=== PATIENT | male | born 1950 | race Caucasian/White ===

== ENCOUNTER 2019-06-18 14:53 | Emergency (ER) | payer BC ==
[2019-06-18] MEDS ORDERED: MECLIZINE HCL 12.5 MG TAB ONE (16:11)
[2019-06-18 16:26] LABS: Absolute Lymphocytes (CBC) 1.7 K/uL (0.7-4.9); Basophils % 0.5 % (0-1.3); Eosinophils % 2.2 % (0-4.4); Hematocrit 46.3 % (39.6-49.0); Lymphocytes % 25.9 % (15.3-44.8); MPV 8.9 fL (7.6-11.3); Monocytes % 8.5 % (3.3-12.3); RBC Red Blood Cell Count 5.31 M/uL (4.33-5.43)
[2019-06-18 16:38] LABS: ALT/SGPT 51 U/L (12-78); AST/SGOT 22 U/L (15-37); Albumin 3.4 g/dL (3.4-5.0); Alkaline Phosphatase 94 U/L (45-117); BUN Blood Urea Nitrogen 19 mg/dL (7-18); Bicarbonate 27 mmol/L (21-32); Bilirubin Direct 0.1 mg/dL (0-0.2); Bilirubin Total 0.4 mg/dL (0.2-1.0); Glucose Level 189 mg/dL (74-106); Magnesium 2.1 mg/dL (1.8-2.4); NT PRO-BNP 13 pg/mL (<125); Potassium 3.8 mmol/L (3.5-5.1); Protein, Total 7.5 g/dL (6.4-8.2); Sodium Level 140 mmol/L (136-145); Troponin (Emerg Dept Use Only) < 0.02 ng/mL (0.0-0.045)
--- NOTE | 2019-06-18 16:38 | RAD REPORT ---
EXAM DESCRIPTION: CT - Head Brain Wo Cont - 06/18/2019 4:05 pm CLINICAL HISTORY: Dizziness COMPARISON: None TECHNIQUE: Computed axial tomography of the head was obtained. IV contrast was not requested. All CT scans are performed using dose optimization technique as appropriate and may include automated exposure control or mA/KV adjustment according to patient size. FINDINGS: An intracranial bleed is not seen . The ventricles are normal in caliber. No extra-axial fluid collection is noted. Mild low-density areas within periventricular, deep and subcortical white matter likely represent isc hemic changes secondary to small vessel disease. Fluid within the sinuses/ mastoids is not seen. Mild chronic ethmoid sinusitis IMPRESSION: No acute intracranial abnormality is seen. If patient's symptoms persist MRI of the bra in would be recommended.
[2019-06-18 17:06] LABS: Protime INR 0.99
--- NOTE | 2019-06-18 17:35 | RAD REPORT ---
EXAM DESCRIPTION: Ernie Single View06/18/2019 4:12 pm CLINICAL HISTORY: Hypertension COMPARISON: 2012 FINDINGS: The lungs appear clear of acute infiltrate. The heart is mildly enlarged IMPRESSION: No acute abnormalities displayed
--- NOTE | 2019-06-18 18:28 | EKG ---
Test Date: 2019-06-18 Test Time: 15:41:08 Spinning Doffer: VERONICA MEASUREMENT RESULTS: Intervals: Rate: 73 [place]: 160 QRSD: 90 QT: 388 QTc: 427 [place]: P: 17 NJ: 160 QRS: 50 T: 45 INTERPRETIVE STATEMENTS: Normal sinus rhythm Normal ECG No previous ECG available for comparison Electronically Signed On 06-18-19 18:28:01 CDT by Omari Loving
--- NOTE | 2019-06-18 19:18 | RAD REPORT ---
EXAM DESCRIPTION: MRI - Brain Wo Cont - 06/18/2019 6:38 pm CLINICAL HISTORY: Or dizziness COMPARISON: June 18, 2019 CT TECHNIQUE: Axial, sagittal, and coronal magnetic images of the brain were obtained. Contrast was not requested FINDINGS: Mild to moderate signal within periventricular, deep and subcortical white matter. Diffusion-weighted/ADC mapping does not reveal evidence of acute infarction. The ventricles are normal caliber. An extra-axial fluid collection is not present Mild ethmoid and sphenoid sinusitis. IMPRESSION: Mild to moderate signal within periventricular, deep and subcortical white matter likely ischemic changes secondary to small vessel disease Mild sinusitis
--- NOTE | 2019-06-18 19:47 | ER ---
Nurse's Notes [facility] Name: Luiz Wyatt Age: 68 yrs Sex: Male : 1950 Arrival Date: 06/18/2019 Time: 14:55 Bed 27 Private MD: Phil Milligan E Diagnosis: Dizziness and giddiness;Acute sinusitis Presentation: 06/18 15:00 Presenting complaint: Intermittent dizziness x 2 days. Transition of care: patient was hb not received from another setting of care. Onset of symptoms was June 17, 2019. Risk Assessment: Do you want to hurt yourself or someone else? Patient reports no desire to harm self or others. Care prior to arrival: None. 15:00 Method Of Arrival: Ambulatory hb 15:00 Acuity: JUAN C 3 hb 15:26 Initial Sepsis Screen: Does the patient meet any 2 criteria? No. Patient's initial rv sepsis screen is negative. Does the patient have a suspected source of infection? No. Patient's initial sepsis screen is negative. Historical: - Allergies: 15:03 No Known Allergies; hb - Home Meds: 15:03 aspirin 81 mg Oral chew 1 tab once daily [Active]; Benicar oral oral [Active]; hb - PMHx: 15:03 Hypertension; hb - PSHx: 15:03 None; hb - Immunization history:: Adult Immunizations up to date. - Social history:: Smoking status: Patient/guardian denies using tobacco. - Ebola Screening: : No symptoms or risks identified at this time. Screenin:26 Abuse screen: Denies threats or abuse. Denies injuries from another. Nutritional rv screening: No deficits noted. Tuberculosis screening: No symptoms or risk factors identified. Fall Risk None identified. Assessment: 15:25 General: Appears in no apparent distress. comfortable, Behavior is calm, cooperative. rv Pain: Denies pain. Neuro: Level of Consciousness is awake, alert, obeys commands, Oriented to person, place, time, situation. Neuro:. Neuro: Reports light headedness. Cardiovascular: Patient's skin is warm and dry. Respiratory: Airway is patent. GI: No signs and/or symptoms were reported involving the gastrointestinal system. : No signs and/or symptoms were reported regarding the genitourinary system. EENT: No signs and/or symptoms were reported regarding the EENT system. Derm: No signs and/or symptoms reported regarding the dermatologic system. Musculoskeletal: No signs and/or symptoms reported regarding the musculoskeletal system. 17:34 Reassessment: Patient appears in no apparent distress at this time. Patient and/or rv family updated on plan of care and expected duration. Pain level reassessed. Patient is alert, oriented x 3, equal unlabored respirations, skin warm/dry/pink. ADY Mooney talked to the patient and explained to the patient and family the result of the diagnostics. plan to do MRI. 19:27 Reassessment: Patient appears in no apparent distress at this time. Patient and/or rv family updated on plan of care and expected duration. Pain level reassessed. Patient is alert, oriented x 3, equal unlabored respirations, skin warm/dry/pink. MRI was done and result already in. awaiting for ADY Mooney to explain it to the patient and family. Vital Signs: 15:02 BP 122 / 71; Pulse 81; Resp 16; Temp 97.4; Pulse Ox 100% on R/A; Weight 129.27 kg; hb Height 5 ft. 11 in. (180.34 cm); Pain 0/10; 15:27 BP 129 / 79; Pulse 75; Resp 16; Pulse Ox 95% on R/A; rv 16:00 BP 118 / 82; Pulse 69; Resp 16; Pulse Ox 95% on R/A; rv 16:30 BP 118 / 79; Pulse 73; Resp 17; Temp 98; Pulse Ox 99% on R/A; rv 17:00 BP 142 / 87; Pulse 74; Resp 16; Pulse Ox 95% on R/A; rv 17:30 BP 124 / 77; Pulse 73; Resp 16; Pulse Ox 95% on R/A; rv 18:00 BP 120 / 79; Pulse 71; Resp 15; Pulse Ox 96% on R/A; rv 18:30 BP 109 / 84; Pulse 74; Resp 13; Pulse Ox 98% on R/A; rv 19:00 BP 121 / 75; Pulse 70; Resp 14; Pulse Ox 99% on R/A; rv 20:13 BP 118 / 76; Pulse 71; Resp 16; Temp 98; Pulse Ox 100% on R/A; rv 15:02 Body Mass Index 39.75 (129.27 kg, 180.34 cm) hb ED Course: 14:55 Patient arrived in ED. ag5 14:56 Phil Milligan MD is Private Physician. ag5 15:02 Triage completed. hb 15:03 Arm band placed on. hb 15:07 Paul Colvin, RN is Primary Nurse. rv 15:26 Patient has correct armband on for positive identification. Placed in gown. Bed in low rv position. Call light in reach. Side rails up X 1. campus monitor on. Pulse ox on. NIBP on. 15:39 Vinicio Varela PA is PHCP. [facility] 15:39 Jean-Paul Morocho MD is Attending Physician. jmm 16:00 Inserted saline lock: 20 gauge in right antecubital area, using aseptic technique. rv Blood collected. 16:06 CT Head Brain wo Cont In Process Unspecified. EDMS 16:11 XRAY Chest (1 view) In Process Unspecified. EDMS 18:24 Patient moved to MRI via wheelchair. em2 18:31 MRI - Brain Wo Cont In Process Unspecified. EDMS 18:40 MRI completed. Patient tolerated well. Patient moved back from MRI. em2 19:45 Justin Khan MD is Referral Physician. [facility] 20:14 No provider procedures requiring assistance completed. IV discontinued, intact, rv bleeding controlled, No redness/swelling at site. Pressure dressing applied. Administered Medications: 16:06 Drug: Meclizine 25 mg Route: PO; rv 16:42 Follow up: Response: No adverse reaction rv Outcome: 19:46 Discharge ordered by MD. jmm 20:14 Discharged to home ambulatory. rv 20:14 Condition: good 20:14 Discharge instructions given to patient, Instructed on discharge instructions, follow up and referral plans. Demonstrated understanding of instructions, follow-up care. 20:14 Prescriptions given X 2. rv 20:15 Patient left the ED. rv Signatures: Dispatcher [employer] EDMS Vinicio Varela PA PA [place] em2 Christina Hunt, RN RN Paul Colvin, RN RN Johan Hernandez ag5
--- NOTE | 2019-06-18 19:48 | EDPHYS ---
Physician Documentation [facility] Name: Luiz Wyatt Age: 68 yrs Sex: Male : 1950 Arrival Date: 06/18/2019 Time: 14:55 Bed 27 Private MD: Phil Milligan E ED Physician Jean-Paul Morocho HPI: 06/18 15:50 This 68 yrs old Male presents to ER via Ambulatory with complaints of Light jmm Headed, Sweating. 15:50 The patient presents with dizziness, sense of spinning. Onset: The symptoms/episode jmm began/occurred acutely, 2 day(s) ago. Modifying factors: The symptoms are alleviated by holding head still, lying down, the symptoms are aggravated by movement of head, standing up, changing position. Associated signs and symptoms: Pertinent positives: diaphoresis, Pertinent negatives: chest pain. This is a 68 year old male with a history of htn that presents to the ED with complaints of intermittent dizziness worsened with movement. Patient states on initial onset developed diaphoresis yesterday. Patient denies chest pain or shortness of breath. Patient has not had similar episodes in the past. . Historical: - Allergies: 15:03 No Known Allergies; hb - Home Meds: 15:03 aspirin 81 mg Oral chew 1 tab once daily [Active]; Benicar oral oral [Active]; hb - PMHx: 15:03 Hypertension; hb - PSHx: 15:03 None; hb - Immunization history:: Adult Immunizations up to date. - Social history:: Smoking status: Patient/guardian denies using tobacco. - Ebola Screening: : No symptoms or risks identified at this time. ROS: 15:50 Constitutional: Negative for fever, chills, and weight loss, Cardiovascular: Negative jmm for chest pain, palpitations, and edema, Respiratory: Negative for shortness of breath, cough, wheezing, and pleuritic chest pain, MS/Extremity: Negative for injury and deformity. 15:50 Neuro: Positive for dizziness. 15:50 All other systems are negative. Exam: 15:50 Constitutional: This is a well developed, well nourished patient who is awake, alert, jmm and in no acute distress. Head/Face: atraumatic. Eyes: EOMI, no conjunctival erythema appreciated ENT: Moist Mucus Membranes Neck: Trachea midline, Supple Chest/axilla: Normal chest wall appearance and motion. Cardiovascular: Regular rate and rhythm. No edema appreciated Respiratory: Normal respirations, no respiratory distress appreciated Abdomen/GI: Non distended, soft Back: Normal ROM Skin: General appearance color normal MS/ Extremity: Moves all extremities, no obvious deformities appreciated, no edema noted to the lower extremities 15:50 Neuro: Orientation: is normal, Mentation: is normal, Memory: is normal, Cerebellar function: normal finger to nose testing, heel to akbar testing is normal, Gait: is steady. 15:50 Psych: Behavior/mood is pleasant, cooperative. Vital Signs: 15:02 BP 122 / 71; Pulse 81; Resp 16; Temp 97.4; Pulse Ox 100% on R/A; Weight 129.27 kg; hb Height 5 ft. 11 in. (180.34 cm); Pain 0/10; 15:27 BP 129 / 79; Pulse 75; Resp 16; Pulse Ox 95% on R/A; rv 16:00 BP 118 / 82; Pulse 69; Resp 16; Pulse Ox 95% on R/A; rv 16:30 BP 118 / 79; Pulse 73; Resp 17; Temp 98; Pulse Ox 99% on R/A; rv 17:00 BP 142 / 87; Pulse 74; Resp 16; Pulse Ox 95% on R/A; rv 17:30 BP 124 / 77; Pulse 73; Resp 16; Pulse Ox 95% on R/A; rv 18:00 BP 120 / 79; Pulse 71; Resp 15; Pulse Ox 96% on R/A; rv 18:30 BP 109 / 84; Pulse 74; Resp 13; Pulse Ox 98% on R/A; rv 19:00 BP 121 / 75; Pulse 70; Resp 14; Pulse Ox 99% on R/A; rv 20:13 BP 118 / 76; Pulse 71; Resp 16; Temp 98; Pulse Ox 100% on R/A; rv 15:02 Body Mass Index 39.75 (129.27 kg, 180.34 cm) hb MDM: 15:50 Patient medically screened. [facility] 19:44 Data reviewed: vital signs, nurses notes. Counseling: I had a detailed discussion with charan the patient and/or guardian regarding: the historical points, exam findings, and any diagnostic results supporting the discharge/admit diagnosis, radiology results, the need for outpatient follow up, to return to the emergency department if symptoms worsen or persist or if there are any questions or concerns that arise at home. ED course: I discussed the patient with Dr. Khan whom will follow up with patient in clinic.. 19:44 ED course: Cerebellar exam normal. Imaging studies negative for an acute process. [facility] Patient is advised to follow up with neuro for further evaluation. Patient states feeling better in the ED. . 06/18 15:22 Order name: Glucose, Ancillary Testing; Complete Time: 15:44 [facility] 06/18 15:51 Order name: Basic Metabolic Panel; Complete Time: 16:41 [facility] 06/18 15:51 Order name: CBC with Diff; Complete Time: 17:18 [facility] 06/18 15:51 Order name: LFT's; Complete Time: 16:41 [facility] 06/18 15:51 Order name: Magnesium; Complete Time: 16:41 [facility] 06/18 15:51 Order name: NT PRO-BNP; Complete Time: 16:42 [facility] 06/18 15:51 Order name: PT-INR; Complete Time: 17:18 [facility] 06/18 15:51 Order name: Troponin (emerg Dept Use Only); Complete Time: 16:42 [facility] 06/18 15:51 Order name: XRAY Chest (1 view); Complete Time: 18:09 [facility] 06/18 15:51 Order name: EKG; Complete Time: 15:53 [facility] 06/18 15:51 Order name: Cardiac monitoring; Complete Time: 16:06 [facility] 06/18 15:51 Order name: CT Head Brain wo Cont; Complete Time: 16:42 [facility] 06/18 16:42 Order name: MRI - Brain Wo Cont; Complete Time: 19:26 [facility] 06/18 15:51 Order name: EKG - Nurse/Tech; Complete Time: 16:06 [facility] 06/18 15:51 Order name: IV Saline Lock; Complete Time: 16:06 [facility] 06/18 15:51 Order name: Labs collected and sent; Complete Time: 16:06 [facility] 06/18 15:51 Order name: O2 Per Protocol; Complete Time: 16:06 [facility] 06/18 15:51 Order name: O2 Sat Monitoring; Complete Time: 16:07 [facility] 06/18 19:35 Order name: Misc. Order: ambulate; Complete Time: 19:40 [facility] Administered Medications: 16:06 Drug: Meclizine 25 mg Route: PO; rv 16:42 Follow up: Response: No adverse reaction rv Disposition: 06/18/19 19:46 Discharged to Home. Impression: Dizziness and giddiness, Acute sinusitis. - Condition is Stable. - Discharge Instructions: Dizziness, Sinusitis, Adult. - Prescriptions for Augmentin 875- 125 mg Oral Tablet - take 1 tablet by ORAL route every 12 hours for 10 days; 20 tablet. Meclizine 25 mg Oral Tablet - take 1 tablet by ORAL route every 8 hours As needed; 30 tablet. - Medication Reconciliation Form, Thank You Letter, Antibiotic Education, Prescription Opioid Use form. - Follow up: Justin Khan MD; When: Saturday06/22/2019; Reason: Recheck today's complaints, Continuance of care, Re-evaluation by your physician. Addendum: 06/20/2019 17:55 Co-signature as Attending Physician, Jean-Paul Morocho MD. g s Signatures: Dispatcher [employer] EDMS Vinicio Varela PA PA [facility] Christina Hunt, SANTO RN Jean-Paul Morocho MD MD Paul Colvin RN RN rv Corrections: (The following items were deleted from the chart) 06/18 19:46 19:46 06/18/2019 19:46 Discharged to Home. Impression: Dizziness and giddiness. [facility] Condition is Stable. Forms are Medication Reconciliation Form, Thank You Letter, Antibiotic Education, Prescription Opioid Use. Follow up: Justin Khan; When: Saturday06/22/2019; Reason: Recheck today's complaints, Continuance of care, Re-evaluation by your physician. [facility] 20:15 19:46 06/18/2019 19:46 Discharged to Home. Impression: Dizziness and giddiness; Acute rv sinusitis. Condition is Stable. Forms are Medication Reconciliation Form, Thank You Letter, Antibiotic Education, Prescription Opioid Use. Follow up: Justin Khan; When: Saturday06/22/2019; Reason: Recheck today's complaints, Continuance of care, Re-evaluation by your physician. [facility]
== END 2019-06-18 20:15 | disposition home or self-care (01) ==
LOC: ER 14:53
DX: J01.90 Acute sinusitis, unspecified (principal); R42 Dizziness and giddiness; Z79.82 Long term (current) use of aspirin; I10 Essential (primary) hypertension
CPT/HCPCS: 36415; 70450; 70551; 71045; 80048; 80076; 82962; 83735; 83880; 84484; 85025; 85610; 93005; 99285

== ENCOUNTER 2023-02-06 06:27 | Day surgery (SDC) | payer BC ==
[2023-02-05 14:03] LABS: Absolute Lymphocytes (CBC) 1.9 K/uL (0.7-4.9); Hematocrit 36.2 % (39.6-49.0); Lymphocytes % 17.3 % (15.3-44.8); MCV 86.7 fL (80-100); MPV 7.1 fL (7.6-11.3); RBC Red Blood Cell Count 4.18 M/uL (4.33-5.43)
[2023-02-06] MEDS ORDERED: CEFAZOLIN SODIUM 1 GM/VIAL ONE (06:55)
[2023-02-06] MEDS ORDERED: NA CHLORIDE 0.9% 1,000 ML ONE (06:55)
[2023-02-06] MEDS ORDERED: propofoL 200 MG/20 ML VIAL IV ONE (07:15)
[2023-02-06] MEDS ORDERED: LIDOCAINE 2% MPF 5 ML VIAL ONE (07:15)
[2023-02-06] MEDS ORDERED: FENTANYL CITR 100 MCG/2 ML ONE (07:15)
[2023-02-06] MEDS ORDERED: NS 0.9% VIAL 10 ML ONE (07:16)
[2023-02-06] MEDS ORDERED: NS 0.9% VIAL 40 ML ONE (07:20)
[2023-02-06] MEDS ORDERED: HEPARIN 5000 UNIT/ML 1 ML VIAL ONE (07:20)
[2023-02-06] MEDS ORDERED: LIDOCAINE 1% 20 ML MDV ONE (07:21)
[2023-02-06] MEDS ORDERED: ONDANSETRON 4 MG/2 ML VIAL ONE (07:43)
[2023-02-06] MEDS ORDERED: EPHEDRINE SULF 50 MG/ML VIAL ONE (08:26)
[2023-02-06] MEDS ORDERED: Mastisol Adhesive Liq ONE (08:27)
--- NOTE | 2023-02-06 08:48 | P.OP ---
Date of Service: 02/06/23 Preop diagnosis: Esophageal cancer Postop diagnosis: Same Procedure performed: Placement of right IJ Port-A-Cath, interpretation of in traoperative fluoroscopy Surgeon: Alex Capone MD News Producer: LUIS FELIPE Velásquez Estimated blood loss: Minimal Specimen: None Findings: Normal anatomy Anesthesia: General Complications: None Drains: None Fluids and blood products: Nonapplicable Disposition: Recovery room Operative note: Patient brought to the OR and placed in supine position. General anesthesia begun. Patient prepped and draped in the usual sterile fashion. Marcaine 0.5% infiltrated locally. 18-gauge needle used to access the right IJ vein. Guidewire passed and position confirmed with fluoroscopy. 3 cm counterincision made on the right anterior chest. Pocket created. Tunneling device used to tunnel the catheter between the 2 wounds. Seldinger technique used and the tip of the catheter placed into the SVC right atrial junction under fluoroscopy. Catheter cut to appropriate size and attached to the Port-A-Cath device Port-A-Cath device attached to the subcutaneous tissue with 3-0 Vicryl. 3-0 chromic used to reapproximate subcutaneous tissue and close skin. Port flushed with heparin and packed with heparin with good blood flow. Sterile dressing applied. Patient awakened and taken to recovery room in good general condition. Chest x-ray has been ordered. CC: Dr. Thomas's office
[2023-02-06 08:51] VITALS: O2SAT 100
[2023-02-06] MEDS ORDERED: CODEINE 30MG/APAP 300MG TAB PO PRN (08:51)
--- NOTE | 2023-02-06 08:57 | RAD REPORT ---
EXAM DESCRIPTION: RAD - Fluoroscopy <1 Hour - 02/06/2023 8:34 am CLINICAL HISTORY: Venous catheter insertion. PORT A CATH COMPARISON: No comparisons FINDINGS: Fluoroscopic imaging is submitted from placement of a venous catheter. Details of the pro cedure not available. Fluoroscopy time: 0.7 minutes
--- NOTE | 2023-02-06 09:27 | RAD REPORT ---
EXAM DESCRIPTION: RAD - Chest Single View - 02/06/2023 9:08 am CLINICAL HISTORY: post-port cath insertion Chest pain. COMPARISON: Chest Single View dated 06/18/2019; CHEST PA AND LAT 2 VIEW dated 10/02/2013; CHEST PA AND LAT 2 VIEW dated 06/12/2006 FINDINGS: Right-sided port catheter has tip in the SVC. No pneumothorax.
[2023-02-06 10:51] VITALS: BP 100/62; TEMP 96.4
== END 2023-02-06 10:09 | disposition home or self-care (01) ==
LOC: OR 06:27
PROVIDERS: ATTEND Surgery
PROC: 0JH60WZ Insertion of Totally Implantable Vascular Access Device into Chest Subcutaneous Tissue and Fascia, Open Approach (ICD-10-PCS; principal; 2023-02-06 07:30)
DX: C15.9 Malignant neoplasm of esophagus, unspecified (principal)
CPT/HCPCS: 36415; 71045; 76000; 82947; 85025; A4216; C1788; J0690; J1644; J2001; J2405; J2704; J3010; J7030

== ENCOUNTER 2023-08-16 07:08 | Day surgery (SDC) | payer BC, OTHER ==
[2023-08-16] MEDS ORDERED: NA CHLORIDE 0.9% 250 ML ONE ×2 (07:51→10:32)
[2023-08-16 08:17] VITALS: BMI 24.1
[2023-08-16 08:28] VITALS: O2SAT 100
[2023-08-16 13:41] VITALS: BP 113/69; TEMP 97.6
[2023-08-16 15:53] LABS: Hematocrit 26.9 % (39.6-49.0)
== END 2023-08-16 15:47 | disposition home or self-care (01) ==
LOC: DS 07:08
PROVIDERS: ATTEND Internal Medicine Hematology & Oncology
DX: D62 Acute posthemorrhagic anemia (principal); C15.5 Malignant neoplasm of lower third of esophagus; R63.4 Abnormal weight loss; D61.810 Antineoplastic chemotherapy induced pancytopenia
CPT/HCPCS: 36415; 86900; 86850; 86901; 86920 ×2; 85018; 85014; 36430 ×2; P9016 ×2; J7050 ×2

== ENCOUNTER 2023-08-22 07:30 | Day surgery (SDC) | payer BC, OTHER ==
[2023-08-22] MEDS ORDERED: NA CHLORIDE 0.9% 250 ML ONE ×2 (08:07→10:45)
[2023-08-22 09:25] VITALS: BMI 24.1
[2023-08-22 12:42] VITALS: TEMP 97.3; O2SAT 100
[2023-08-22 14:45] LABS: Hematocrit 25.4 % (39.6-49.0)
[2023-08-22 14:56] VITALS: BP 114/53
== END 2023-08-22 14:50 | disposition home or self-care (01) ==
LOC: DS 07:30
PROVIDERS: ATTEND Internal Medicine Hematology & Oncology
DX: D61.810 Antineoplastic chemotherapy induced pancytopenia (principal); C15.5 Malignant neoplasm of lower third of esophagus; G89.3 Neoplasm related pain (acute) (chronic); R63.4 Abnormal weight loss; R13.19 Other dysphagia
CPT/HCPCS: 36415; 36430; 85014; 85018; 86850; 86900; 86901; 86920; J7050; P9016

== ENCOUNTER 2023-09-24 07:25 | Day surgery (SDC) | payer BC ==
[2023-09-24] MEDS ORDERED: NA CHLORIDE 0.9% 250 ML ONE ×2 (08:12→09:37)
== END 2023-09-24 14:40 | disposition home or self-care (01) ==
LOC: DS 07:25
PROVIDERS: ATTEND Internal Medicine Hematology & Oncology
PROC: 30233N1 Transfusion of Nonautologous Red Blood Cells into Peripheral Vein, Percutaneous Approach (ICD-10-PCS; principal; 2023-09-24)
DX: D50.0 Iron deficiency anemia secondary to blood loss (chronic) (principal); C15.5 Malignant neoplasm of lower third of esophagus; D61.810 Antineoplastic chemotherapy induced pancytopenia; R13.19 Other dysphagia; R63.4 Abnormal weight loss
CPT/HCPCS: 36415; 86900; 86850; 86901; 86920 ×2; 85018; 85014; 36430; P9016 ×2; J7050 ×2

== ENCOUNTER 2023-10-11 07:43 | Inpatient (IN) | payer BC, OTHER ==
[~2023-10-11 07:43] MED LIST: D5 0.45 NS 1,000 ML IV ONE; NOREPINEPHRINE BITARTRATE/D5W 4 MG/250 ML BAG IV ONE
--- OUTSIDE RECORDS SUMMARY | 2023-10-11 07:47 | XMS REPORT | Clinical Summary ---
:1950 Author Organization [facility] MD [facility] Address [address] [place] [address] Care Team Providers Name Role Phone Porshce Holm MD Primary Care Provider Pam Mccormack RD Unavailable Allergies No known active allergies Medications Medication Sig Dispensed Refills Start Date End Date Status acetaminophen-codeine TAKE 1 TABLET 0 02/06/2023 Active (TYLENOL #3) 300 mg-30 BY MOUTH mg tablet EVERY 4 HOURS NEEDED FOR PAIN atorvastatin (LIPITOR) Take 1 tablet 0 01/30/2023 Active 40 mg tablet (40 mg) by mouth daily. metFORMIN (GLUCOPHAGE) Take 1 tablet 0 01/28/2023 Active 1000 mg tablet (1,000 mg) by mouth daily with breakfast. olmesartan-hydrochloro Take 1 tablet 0 01/28/2023 Active thiazide (BENICAR HCT) by mouth 20-12.5 mg per tablet daily. omeprazole (PriLOSEC) TAKE 1 0 01/23/2023 Active 40 MG capsule CAPSULE BY MOUTH IN THE MORNING ondansetron DISSOLVE 1 0 01/11/2023 Active (ZOFRAN-ODT) 4 mg TABLET IN disintegrating tablet MOUTH EVERY 8 HOURS NEEDED acetaminophen Take 1 tablet 0 Ac tive (TYLENOL) 500 mg (500 mg) by tablet mouth every 6 (six) hours as needed for mild pain. senna (SENOKOT) 8.6 mg Take 1 tablet 0 Active tablet by mouth daily as needed. scopolamine Place 1 patch 10 patch 0 02/25/2023 Act renuka (Transderm-Scop) 1.5 on the skin mg transdermal every 72 patchIndications: hours. 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 prochlorperazine Take 1 tablet 60 tablet 2 02/28/2023 02/28/20 2 Discontinued (COMPAZINE) 10 mg (10 mg) by 3 tabletIndications: mouth every 6 Malignant neoplasm of (six) hours cardio-esophageal as needed for junction of stomach nausea or vomiting (Second choice). Active Problems Patient Care Coordination Note Formatting of this note might be differe nt from the original. 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 02/14/2023 Cancer Staging: Clinical: Stage IVB (cM1 ) - Signed by Nadia Bowden PA on 02/14/2023 Overview: Added automatically from request for lamberto hosea [id number] Secondary malignant neoplasm of liver 02/14/2023 Encounters Date Type Department Care Team Description 03/27/2023 Documentation Gastrointestinal [place], ADY Burger [address] [facility] Main Bldg, 7th [place] [address] 03/04/2023 Nutrition Clinical Nutrition Porsche Holm 10:00 AM For your Yocasta Dillard MD CDT appointment location [place], directions please Pam Smart RD call: 03/01/2023 Documentation Gastrointestinal [place]enn[place], ADY Burger [address] [facility] Main Bldg, 7th Floor Elevator A [place], [place] [id number] 03/01/2023 Orders Only Gastrointestinal [place], Malignant n eoplasm of ADY Burger cardio-esophageal [address] [facility] junction of stomach Main Bldg, 7th Floor (Primary Dx) [place] [address] 02/27/2023 Lab Requisition [facility] Deangelo Banda MD Disposition: Home FangIsrael MD 02/27/2023 Orders Only Gastrointestinal [place], Center ADY Zuniga [address] Main Bldg, 7th [place] [address] 02/26/2023 Orders Only Gastrointestinal Porsche Holm Malignant neoplasm of Laquita Dillard MD cardio-esophageal [address] junction of stomach Main Bldg, 7th Floor (Primary Dx) [place] [address] 02/25/2023 Ancillary Procedure Image Library Porsche Holm Cancer 10:55 PM [place] [address] 02/25/2023 Ancillary Procedure Image Library Porsche Holm Cancer 10:50 [place] [address] 02/25/2023 Ancillary Procedure Image Library Porsche Holm Cancer 10:45 [place] [address] 02/25/2023 Follow-Up Gastrointestinal Porsche Holm 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 (Primary Dx); 1:00 PM Laquita Dillard MD Secondary malignant neoplasm of liver; CDT [address] Dysphagia, not otherwise spe cified; Main Bldg, 7th [place] [address] 02/25/2023 Infusion Ambulatory Treatment [place], Dehydra tion (Primary Dx); 10:45 AM [facility] ADY Zuniga 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 CDT [address] [facility], 8th Nahun or M, RN Elevator T [place] [address] 02/25/2023 Orders Only Gastrointestinal [place], Malignant n eoplasm of Center Nadia, PA cardio-esophageal [address] junction of stomach Main Bldg, 7th Floor (Primary Dx) [place] [address] 02/25/2023 Travel 02/24/2023 Hospital Encounter Ambulatory Treatment Gerry Bowdenration (Primary Dx); 7:00 AM [facility] ADY Alexander 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 CDT - [address] Sarah, Discharge Disposition: Home 02/24/2023 Main Bldg, 2nd Floor Deisy R, 11:59 PM [place] [address] 02/24/2023 Travel 02/23/2023 Hospital Encounter Ambulatory Treatment Porsche Holm Dehydration (Primary Dx); 2:26 PM [facility] Kike Dillard MD 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 CDT - [address] Stiven Quintero A, Discharge Disposition: Home 02/23/2023 Main Bldg, 10th Floo florencia RN 11:59 PM [place] [address] 02/23/2023 Travel 02/22/2023 Hospital Encounter Ambulatory Treatment Porsche Holm Dehydration (Primary Dx); 2:51 PM [facility] Kike Dillard MD 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 CDT - [address] [place], Discharge Disposition: Home 02/22/2023 Main Bldg, 2nd Floor Rita Solorzano RN 11:59 PM [place] [address] 02/22/2023 Travel 02/21/2023 Infusion Ambulatory Treatment Porsche Holm Dehydr ation (Primary Dx); 5:00 PM [place] [facility] Dillard MD 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 CDT [address] Stephanie Bearden [facility], 8th Nahun michele Garrett, [place] [address] 02/21/2023 Follow-Up Gastrointestinal Porsche Holm 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 (Primary Dx); Critical access hospital Dehydration [address] Main Bldg, 7th [place] [address] 02/21/2023 Travel 02/20/2023 Nutrition Clinical Nutrition [place], Malignant neoplasm of 9:30 AM For your Nutrition ADY Zuniga cardio-esophageal CDT appointment location Ebvandana, leenactio n of stomach directions please Pam Smart RD call: 02/20/2023 Orders Only Gastrointestinal [place], Malignant n eoplasm of Center ADY Zuniga cardio-esophageal [address] junction of stomach Main Bldg, 7th Floor (Primary Dx) [place] [address] 02/20/2023 Telephone [facility] - [place], Medical Oncology Jessica Reynolds RN [address] Main Bldg, 7th [place] [address] 02/18/2023 Anesthesia Event Endoscopy Center Radha, 11:56 AM [address] Haro MD CDT Main Bldg, 5th [place] [address] 02/18/2023 Surgery Endoscopy Center Pravinme, DIAGNOSTIC UPPER 10:15 AM [address] Bl[address]uman MD GASTROINTESTINAL CDT - Main Bldg, 5th Floor ENDOSCOPY 02/18/2023 Elevator C 10:55 AM [place], [place] [address] [phone] 02/18/2023 Hospital Encounter Endoscopy Center [place], Malignant neoplasm of cardio -esophageal junction of stomach 8:45 AM Yohana Lanier MD Discharge Disposition: Home CDT - Main Bldg, 5th Floor 02/18/2023 Elevator C 1:[address] [phone] 02/18/2023 Travel 02/15/2023 POEM Appointments Perioperative Porsche Holm 12:00 PM Evaluation and MD Nishant CDT Management Center [address] [place] [address], 6th [place] [address] 02/14/2023 Anesthesia Event Perioperative Sonia Da Silva 11:59 PM Evaluation and Aparna RN CDT Management Center [address] [place] [address], 6th [place] [address] 02/14/2023 Ancillary Procedure Image Library Porsche Holm Cancer 8:25 [place] [address] 02/14/2023 Ancillary Procedure Image Library Porsche Holm Cancer 8:20 [place] [address] 02/14/2023 Ancillary Procedure Image Library Porsche Holm Cancer 8:15 [place] [address] 02/14/2023 Ancillary Procedure Image Library Porsche Holm Cancer 8:10 [place] [address] 02/14/2023 Ancillary Procedure Image Library Porsche Holm Cancer 8:05 [place] [address] 02/14/2023 Ancillary Procedure Image Library Porsche Holm Cancer 8:00 PM Yohana Dillard MD [place] [address] 02/14/2023 Hospital Encounter Diagnostic Laboratory [place], 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 11:27 AM ADY Burger Discharge Disposition: Home CDT - [address] 02/14/2023 Main Bldg, Elevator A 11:59 PM [place], [place] [address] 02/14/2023 Office Visit Gastrointestinal Porsche Holm 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 (Primary Dx); 9:40 AM Laquita Dillard MD Secondary malignant neoplasm of liver; CDT [address] Type 2 diabetes mellitus wit hout complication; Main Bldg, 7th Floor Dysphagia, [place] [address] 02/14/2023 Documentation Gastrointestinal Harley Kirkland [facility] [address] Main Bldg, 7th [place] [address] 02/14/2023 Prep for Surgery Endoscopy Center [place], Malignant neoplasm of [address] Shea, RUBBER INSULATOR cardio-esophageal Main Bldg, 5th Floor junction of stomach Elevator C (Primary Dx) [place] [address] 02/14/2023 Travel 02/12/2023 Lab Requisition [facility] Deangelo Banda MD Disposition: Home Israel Headley MD 02/11/2023 NPR [facility] PATIENT ACCESS 9:00 AM T 02/11/2023 Travel 02/06/2023 Orders Only Gastrointestinal [place], Malignant n eoplasm of Center ADY Zuniga cardio-esophageal [address] junction of stomach Main Bldg, 7th Floor (Primary Dx) [place] [address] 02/05/2023 Travel 02/04/2023 Travel after 10/11/2022 Surgical History Surgery Date Site/Laterality Comments DC ESOPHAGOGASTRODUODENOSCOPY 02/18/2023 Esophagus/N/A Pr ocedure: DIAGNOSTIC TRANSORAL DIAGNOSTIC UPPER GASTR OINTESTINAL ENDOSCOPY; Surge on: Yolande Acevedo i, MD; Location: MAIN ENDOSCOPY; Servi ce: GASTROENTEROLOGY Medical History Medical History Date Comments Swallowing problem 10.26.2022 Diabetes mellitus Cancer Family History Medical History Relation Name Comments Prostate cancer Father Lee wyatt Colon cancer Paternal Grandmother Relation Name Status Comments Father Lee wyatt Paternal Grandmother Social History Tobacco Use Types Packs/Day Years Used Date Smoking Tobacco: Former Pipe 01/31 - 02/14/2023 Smokeless Tobacco: Never Tobacco Cessation: Counseling Given: Not Answered Alcohol Use Standard Drinks/Week Comments Not Currently 0 (1 standard drink = 0.6 oz pure alcoho l) Sex and Gender Information Value Date Recorded Sex Assigned at Not on file Gender Identity Not on file Sexual Orientation Not on file Job Start Date Occupation Industry Not on file Not on file Not on file Obstetrics History Last Filed Vital Signs Vital Sign Reading Time Taken Comments Blood Pressure 129/84 02/25/2023 2:02 PM CDT Pulse 77 02/25/2023 2:02 PM CDT Temperature 36.6 C (97.9 F) 02/25/2023 2:02 PM CDT Respiratory Rate 16 02/25/2023 2:02 PM CDT Oxygen Saturation 100% 02/25/2023 2:02 PM CDT Inhaled Oxygen Concentration - - Weight 99 kg (218 lb 4.8 oz) 02/25/2023 1:59 PM CDT Height 175.6 cm (5' 9.13") 02/14/2023 9:19 AM CDT Body Mass Index 32.11 02/14/2023 9:19 AM CDT Plan of Treatment Health Maintenance Due Date Last Done Comments COVID-19 Vaccination ( season) 08/02/20232020, 01/23/2021 Procedures Procedure Name Priority Date/Time Associated Comments Diagnosis AP IHC MSI (MLH1, MSH2, Routine 03/01/2023 2:13 Malignant neop lasm MSH6, PMS2) MATERIAL PM CDT of REQUEST cardio-esophageal junction of stomach AP IHC PD-L1 MATERIAL Routine 03/01/2023 2:13 Malignant neopla sm REQUEST PM CDT of cardio-esophageal junction of stomach AP IHC HER2/NEGRITA MATERIAL Routine 02/21/2023 9:39 Malignant radha plasm REQUEST PM CDT of cardio-esophageal junction of stomach VERIFY CATHETER TIP Routine 02/21/2023 12:40 Encounter for Res ults for this PLACEMENT PM CDT fitting and procedure are i n adjustment of the results vascular catheter section. XR CHEST 2 VW Routine 02/21/2023 11:35 Malignant neoplasm Resu lts for this AM CDT of procedure are i n cardio-esophageal the result s junction of section. stomach PATHOLOGY BIOPSY Routine 02/18/2023 12:04 Malignant neoplasm R esults for this INTERPRETATION PM CDT of procedure are in cardio-esophageal the result s junction of section. stomach POC GLUCOSE SCREEN Routine 02/18/2023 11:47 Resul ts for this AM CDT procedure are i n the results section. DIAGNOSTIC UPPER 02/18/2023 11:46 Malignant neoplasm GASTROINTESTINAL AM CDT of ENDOSCOPY cardio-esophageal junction of stomach NGS BLOOD CONTROL Routine 02/14/2023 11:36 Res ults for this AM CDT procedure are i n the results section. HP LB LIQUID BIOPSY Routine 02/14/2023 11:36 PANEL V1 INTERPRETATION AM CDT AND REPORT FRACTIONATED BILIRUBIN Routine 02/14/2023 11:36 Malignant neop lasm Results for this AM CDT of procedure are i n cardio-esophageal the result s junction of section. stomach TOTAL PROTEIN Routine 02/14/2023 11:36 Malignant neoplasm Resu lts for this AM CDT of procedure are i n cardio-esophageal the result s junction of section. stomach ASPARTATE Routine 02/14/2023 11:36 Malignant neoplasm Resul ts for this AMINOTRANSFERASE AM CDT of procedure a re in cardio-esophageal the result s junction of section. stomach ALANINE AMINOTRANSFERASE Routine 02/14/2023 11:36 Malignant ne oplasm Results for this AM CDT of procedure are i n cardio-esophageal the result s junction of section. stomach ALKALINE PHOSPHATASE Routine 02/14/2023 11:36 Malignant neopla sm Results for this AM CDT of procedure are i n cardio-esophageal the result s junction of section. stomach ALBUMIN LEVEL Routine 02/14/2023 11:36 Malignant neoplasm Resu lts for this AM CDT of procedure are i n cardio-esophageal the result s junction of section. stomach CALCIUM LEVEL Routine 02/14/2023 11:36 Malignant neoplasm Resu lts for this AM CDT of procedure are i n cardio-esophageal the result s junction of section. stomach .GLOMERULAR FILTRATION Routine 02/14/2023 11:36 Malignant neop lasm Results for this RATE AM CDT of procedure are i n cardio-esophageal the result s junction of section. stomach SERUM CREATININE Routine 02/14/2023 11:36 Malignant neoplasm R esults for this AM CDT of procedure are i n cardio-esophageal the result s junction of section. stomach ELECTROLYTE PANEL Routine 02/14/2023 11:36 Malignant neoplasm Results for this AM CDT of procedure are i n cardio-esophageal the result s junction of section. stomach BLOOD UREA NITROGEN Routine 02/14/2023 11:36 Malignant neoplas m Results for this AM CDT of procedure are i n cardio-esophageal the result s junction of section. stomach GLUCOSE LEVEL Routine 02/14/2023 11:36 Malignant neoplasm Resu lts for this AM CDT of procedure are i n cardio-esophageal the result s junction of section. stomach DIFFERENTIAL Routine 02/14/2023 11:36 Malignant neoplasm Resul ts for this AM CDT of procedure are i n cardio-esophageal the result s junction of section. stomach .CBC Routine 02/14/2023 11:36 Malignant neoplasm Resul ts for this AM CDT of procedure are i n cardio-esophageal the result s junction of section. stomach CARCINOEMBRYONIC ANTIGEN Routine 02/14/2023 11:36 Malignant ne oplasm Results for this AM CDT of procedure are i n cardio-esophageal the result s junction of section. stomach PHOSPHORUS LEVEL Routine 02/14/2023 11:36 Malignant neoplasm R esults for this AM CDT of procedure are i n cardio-esophageal the result s junction of section. stomach MAGNESIUM LEVEL Routine 02/14/2023 11:36 Malignant neoplasm Re sults for this AM CDT of procedure are i n cardio-esophageal the result s junction of section. stomach LACTATE DEHYDROGENASE Routine 02/14/2023 11:36 Malignant neopl asm Results for this AM CDT of procedure are i n cardio-esophageal the result s junction of section. stomach COMPREHENSIVE METABOLIC Routine 02/14/2023 11:36 Malignant radha plasm PANEL AM CDT of cardio-esophageal junction of stomach COMPLETE BLOOD COUNT W/ Routine 02/14/2023 11:36 Malignant radha plasm DIFFERENTIAL AM CDT of cardio-esophageal junction of stomach HP LB NRAS MUTATION Routine 02/14/2023 11:36 Malignant neoplas m Results for this ANALYSIS COLLECTION, AM CDT of procedu re are in BLOOD cardio-esophageal the result s junction of section. stomach HP LB BRAF MUTATION Routine 02/14/2023 11:36 Malignant neoplas m Results for this ANALYSIS COLLECTION, AM CDT of procedu re are in BLOOD cardio-esophageal the result s junction of section. stomach HP LB APC MUTATION Routine 02/14/2023 11:36 Malignant neoplasm Results for this ANALYSIS COLLECTION, AM CDT of procedu re are in BLOOD cardio-esophageal the result s junction of section. stomach OSI CHEST Routine 02/06/2023 2:19 Cancer Results for this PM [employer]LEPH[employer]PERATORS SUPERVISOR procedure are i n the results section. OSI INTERVENTIONAL Routine 02/06/2023 2:18 Cancer Result s for this PM [employer]LE[employer] OPERATORS SUPERVISOR procedure are i n the results section. OSI CT CHEST Routine 01/31/2023 2:18 Cancer Results for this PM [employer]LEPH[employer] OPERATORS SUPERVISOR procedure are i n the results section. OSI MRI ABDOMEN Routine 01/23/2023 2:24 Cancer Results f or this PM [employer]LE[employer]PERATORS SUPERVISOR procedure are i n the results section. OSI MRI ABDOMEN Routine 01/23/2023 2:19 Cancer Results f or this PM TELEPH[employer] OPERATORS SUPERVISOR procedure are i n the results section. OSI CT CHEST Routine 12/27/2022 2:18 Cancer Results for this PM [employer]LEPH[employer]PERATORS SUPERVISOR procedure are i n the results section. PATHOLOGY OUTSIDE Routine 12/27/2022 Results fo r this INTERPRETATION procedure are in the results section. PATHOLOGY OUTSIDE Routine 12/27/2022 Results fo r this INTERPRETATION procedure are in the results section. after 10/11/2022 Results IHC PD-L1 Material Request (03/01/2023 2:13 PM CDT) Specimen Anatomical Collection Method Collection Time Receive d Time (Source) Location / / Volume Laterality Tissue specimen 03/01/2023 2:13 PM 2022 2:13 (specimen) CDT PM CDT Nadia GARSIA MDA IP AP BIOMARKERS Performing Organization Address City/State/ZIP Code Phon e Number [facility] [place] [address], [place] [address] [place] IHC MSI (MLH1, MSH2, MSH6, PMS2) Material Request (03/01/2023 2:13 PM CDT) Specimen Anatomical Collection Method Collection Time Receive d Time (Source) Location / / Volume Laterality Tissue specimen 03/01/2023 2:13 PM 2022 2:13 (specimen) CDT PM CDT Nadia GARSIA [facility] IP AP BIOMARKERS Performing Organization Address City/State/ZIP Code Phon e Number [facility] [place] [place] [address], [place] [address] [place] IHC HER2/negrita Material Request (02/21/2023 9:39 PM CDT) Specimen Anatomical Collection Method Collection Time Receive d Time (Source) Location / / Volume Laterality Tissue specimen 02/21/2023 9:39 PM 2022 9:39 (specimen) CDT PM CDT Nadia GARSIA [facility] IP AP BIOMARKERS Performing Organization Address City/State/ZIP Code Ph[place] [address], [place] [address] [place] Tip Verification Central Vascular Access Device (02/21/2023 12:40 PM CDT) Nadia Falcon PA - 02/21/2023 12:40 PM CDT ADY Jarrett 02/22/2023 12:01 PM Central Vascular Access Device Tip Verif ication Performed by: ADY Jarrett Authorized by: ADY Jarrett [employer] Device placement location: Outside fac ility Catheter Type: Implanted venous port wit hout CT rating visible Vein location: Internal jugular vein Laterality: Right Tip in good position and cleared for inf usion Nadia GARSIA IV THERAPY ORDERABLES X-ray Chest 2 Views (02/21/2023 11:35 AM CDT) Anatomical Region Laterality Modality Chest Digital Radiography Specimen (Source) Anatomical Collection Method Collection Time Re ceived Time Location / / Volume Laterality 02/21/2023 11:37 AM CDT Impressions 02/21/2023 11:45 AM CDT No evidence of acute cardiopulmonary disease. Narrative 02/21/2023 11:45 AM CDT FULL RESULT: Examination: Chest, 2 views, 02/21/2023 1 1:35 AM. 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 Indication: Check Central Line placement , COVID-19 Not Suspected. Comparison: None. Technique: Posteroanterior, lateral, and dual-energy radiographs of the chest. Findings: A right internal jugular catheter has it s tip overlying the superior vena cava. The cardiomediastinal silhouette is unre markable. No pulmonary nodule, mass or consolidati on is seen. There are no pleural effusions. No pneum othorax. Procedure Note Telma Gusman C.B., MD - 02/21/2023Format ting of this note might be different from the original. FULL RESULT: Examination: Chest, 2 views, 02/21/2023 1 1:35 AM. 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 Indication: Check Central Line placement , COVID-19 Not Suspected. Comparison: None. Technique: Posteroanterior, lateral, and dual-energy radiographs of the chest. Findings: A right internal jugular catheter has it s tip overlying the superior vena cava. The cardiomediastinal silhouette is unre markable. No pulmonary nodule, mass or consolidati on is seen. There are no pleural effusions. No pneum othorax. IMPRESSION: No evidence of acute cardiopulmonary dis ease. Nadia LEON DIAGNOSTIC IMAGING ORDER PAVEL Pathology Biopsy Interpretation (02/18/2023 12:04 PM CDT) Component Value Ref Test Analysis Performed Pathologis t Range Method Time At Signature Addendum 3 PD-L1 IMMUNOHISTOCHEMISTRY 03/26/2023 M DA AP Addendum (clone 22C3, [employer], manual analysis) 6:23 PM LABS electronically Performed on a formalin-fixe d paraffin embedded section of adenocarcinoma from esophageal biopsy (Block: A1) CDT signed by Jessika, Combined Positive Score (CPS) = 30 (positive) Kaleigh Almazan MD on 03/26 Assay Information: This assa y is manufactured by [employer] and uses a monoclonal anti-PD-L1, clone [id number]. It is performed on formalin-fixed paraffin- embedded tissue using an [employer] Dako autostainer a at 6:23 PM nd polymer based detection k it, as specified by the abattoir manager. It is approved for use as a injection molding machine offbearer diagnostic for specific therapies on certain tumor types.Combined positive score (CPS) is calculat ed as the number of PD-L1 st aining cells (viable invasive tumor cells showing membranous staining of any intensity; lymphocytes and macrophages in the tumor area showing membranous or cytoplasmic staini ng of any intensity) divided by the total number of viable invasive tumor cells, multiplied by 100. The maximum score is defined as CPS 100. Addendum 2 03/26/2023 MDA AP Addendum 6:23 PM LABS electronic ally Intact expression of DNA mis match repair proteins in tumor by immunohistochemistry. CDT signed by Immunoperoxidase stains for the DNA mismatch repair enzymes MLH1, MSH2, MSH6 and PMS2 show intact nuclear expression. Therefore, the likelihood of defective DNA mismatch repair/high levels of microsatellite instability (MSI-H) in the tumor is low. Chin, Rebecc a Immunohistochemistry is appr oximately 90-95% sensitive for detection of MSI-H. Most of the MSI-H carcinomas missed by immunohistochemistry occur in patients with [place] syndrome/hereditary non-polyposis colorectal cancer (HNPCC) syndrome. E, DO on 03/08/2023 a t 10:33 AM Addendum 1 HER-2/negrita (4B5, [place] [facility]) IMMUNOHISTOCHEMISTRY 03/26/2023 [facility] Addendum Performed on a formalin-fixe d paraffin embedded section of carcinoma from esophageal biopsy (Block: A1) 6:23 PM LABS electronically CDT signed by No membranous reactivity in any tumor cell Jessika, (0, negative) Luann Almazan MD on 02/26 at 6:26 PM FOOTNOTE: Reference Edgar YJ, Benjie lew E, Everette A, et al. 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 Lancet. 2010;376:687-697. 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 (SEE COMMENT) 6:23 PM LABS signed by JAMARCUS Richter MD on 02/21/2023 at 5:50 PM Comment Immunohistochemical studies performed at [facility] show the neoplastic cells are positive for synaptophysin (diffuse), chromogranin (scattered cells), and p40 (CK5/6 & p40 dual stain; rare cells); and 03/03 [facility] AP are negative for CK5/6 (CK5 /6 & p40 dual stain). A mucicarmine stain highlights multifocal intracellular and intraluminal mucin. There is intact nuclear expression for SMARCA4 (BRG1) and loss of nu 6 :23 PM LABS clear expression for INI1/SM ARCB1 (BAF47) in the neoplastic cells. The immunohistochemical findings support the above diagnosis. CDT In this biopsy, the glandula r component represents less than 30% of the neoplastic cells. 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 Gross A: 03/26/2023 [facility] Description Esophagus, esophageal tumor : Multiple soft, nixon tissue fragments, 0.9 x 0.6 x 0.2 cm in aggregate, entirely submitted in A1. ET 6:23 PM LABS CDT Biomarker PRIMARY TUMOR: block 03/26/2023 [facility] Block(s) A1 6:23 PM LABS CDT Disclaimer "Some tests reported 03/26/2023 [facility] here may have been 6:23 PM LABS developed and CDT performance characteristics determined by [facility] Pathology and Laboratory Medicine. These tests have not been specifically cleared or approved by the U.S. Food and Drug Administration. If applicable, controls were reviewed and showed appropriate reactivity." Specimen Anatomical Collection Method Collection Time Receive d Time (Source) Location / / Volume Laterality Tissue specimen 02/18/2023 12:04 02/19/20 2:32 (specimen) PM CDT PM CDT (Esophagus) Yolande Delgado MD LAB PATHOLOGY ORDERABLES Performing Organization Address City/State/ZIP Code Phon e Number [facility] LABS [facility] [address], [place] [address] [place] (ABNORMAL) POC Glucose Screen (02/18/2023 11:47 AM CDT) P athologist Signature POC Glucose 127 (H) 70 - 99 POC TEL[facility] mg/dL Comment: Capillary blood samples, e.g. obtained b y fingerstick, may have inaccurate results in patients with decreased peripheral blood flow. All POC Glucose screen test results, inc luding critical values, must be interpreted and evaluated in the context of the patients clinical findings. It is recommended to confirm any questionable test results by core lab methodology. Method description: All results are celsa ured using Electrochemistry test methodology. The glucose in the sample mixes with the reagents on the test strip. The reaction produces an electric current. The amount of current produced is proportion al to the glucose concentration in the blood. PO Sample Type Venous POC TEL[facility] Performing Lab [facility] POC TELCO R Comment: [facility], [address] [place] [address], [place] [address]; Lab Direct or: Libertad Kahn MD; Waived Point of Care Testing - Dena Martínez MD Specimen Anatomical Collection Method Collection Time Receive d Time (Source) Location / / Volume Laterality Blood 02/18/2023 11:47 02/18/2023 AM CDT 11:47 AM CDT Yolande Delgado MD POCT ORDERABLES - DEVICE Performing Organization Address [facility] Phon e Number POC TELCOR Unless otherwise noted, [place] [address] lab tests performed by: Division of Pathology and Laboratory Medicine [address] [place] [address] Liquid Biopsy Panel V1 Interpretation and Report (02/14/2023 11:36 AM CDT) Specimen (Source) Anatomical Collection Method Collection Time Re ceived Time Location / / Volume Laterality 02/14/2023 11:36 AM CDT Narrative This result has an attachment that is no t available. Nadia GARSIA MDA HP MOLECULAR DIAGNOSTICS (CONNER FULLER) Performing Organization Address [facility] Phon e Number [facility] Unless otherwise noted, [address] all lab tests performed by: Division of Pathology and Laboratory Medicine [address] [place] [address] NRAS Mutation Analysis Collection, Blood (02/14/2023 11:36 AM CDT) athologist Signature Molecular Yes [facility] CAN[facility] CENTER (Received) Specimen Anatomical Collection Method Collection Time Receive d Time (Source) Location / / Volume Laterality Blood 02/14/2023 11:36 02/14/2023 1:36 AM CDT PM CDT Nadia GARSIA MDA HP MD BLOOD COLLECTIONS Performing Organization Address [facility] Phon e Number [facility] Unless otherwise noted, [address] all lab tests performed by: Division of Pathology and Laboratory Medicine [address] [place] [address] APC Mutation Analysis Collection, Blood (02/14/2023 11:36 AM CDT) athologist Signature Molecular Yes [facility] (Received) Specimen Anatomical Collection Method Collection Time Receive d Time (Source) Location / / Volume Laterality Blood 02/14/2023 11:36 02/14/2023 1:36 AM CDT PM CDT Nadia GARSIA MDA HP MD BLOOD COLLECTIONS Performing Organization Address City/[facility]/ZIP Code Phon e Number [facility] Unless otherwise noted, [place] [id number] [place] all lab tests performed by: Division of Pathology and Laboratory Medicine Yohana MOSCOSO BRAF Mutation Analysis Collection, Blood (02/14/2023 11:36 AM CDT) athologist Signature Molecular Yes [facility] (Received) Specimen Anatomical Collection Method Collection Time Receive d Time (Source) Location / / Volume Laterality Blood 02/14/2023 11:36 02/14/2023 1:36 AM CDT PM CDT Nadia GARSIA MDA HP MD BLOOD COLLECTIONS Performing Organization Address City/[facility]/ZIP Code Phon e Number [facility] Unless otherwise noted, [place] [phone] [place] all lab tests performed by: Division of Pathology and Laboratory Medicine Yohana Viera .Serum Creatinine (02/14/2023 11:36 AM CDT) [facility] Creatinine 0.96 0.67 - 1.17 [facility] mg/dL DIAGNOSTIC CENTER Specimen Anatomical Collection Method Collection Time Receive d Time (Source) Location / / Volume Laterality Blood 02/14/2023 11:36 02/14/2023 AM CDT 11:55 AM CDT Nadia GARSIA LAB BLOOD ORDERABLES Performing Organization Address City/[facility]/ZIP Code Phon e Number [facility] Unless otherwise noted, [place] [phone] [place] all lab tests performed by: Division of Pathology and Laboratory Medicine Yohana Viera MD NGS Blood Control (02/14/2023 11:36 AM CDT) athologist Signature Molecular Yes [facility] [place] (Received) Specimen Anatomical Collection Method Collection Time Receive d Time (Source) Location / / Volume Laterality Blood 02/14/2023 11:36 02/14/2023 1:37 AM CDT PM CDT Nadia GARSIA MDA IP HP MOLECULAR DIAG IF ORDERABLES Performing Organization Address City/State/ZIP Code Phon e Number [facility] Unless otherwise noted, [place] [address] CENTER all lab tests performed by: Division of Pathology and Laboratory Medicine [address] [place] [address] (ABNORMAL) .CBC (02/14/2023 11:36 AM CDT) Analysis Performed At Patho logist Time Signature WBC 6.4 4.0 - 11.0 [facility] K/uL DIAGNOSTIC CENTER RBC 4.16 (L) 4.50 - [facility] 6.00 M/uL DIAGNOSTIC CENTER Hgb 11.9 (L) 14.0 - [facility] 18.0 gm/dL DIAGNOSTIC CENTER Hct 36.1 (L) 40.0 - [facility] 54.0 % DIAGNOSTIC CENTER MCV 87 82 - 98 [facility] DIAGNOSTIC CENTER MCH 28.6 27.0 - [facility] 31.0 pg DIAGNOSTIC CENTER MCHC 33.0 31.0 - [facility] 36.0 gm/dL DIAGNOSTIC CENTER RDW-SD 41.4 35.1 - [facility] 46.3 [place] DIAGNOSTIC CENTER RDW-CV 13.2 12.0 - [facility] 15.5 % DIAGNOSTIC CENTER Platelet count 400 140 - 440 [facility] K/uL DIAGNOSTIC CENTER MPV 9.6 4.0 - 10.4 [facility] DIAGNOSTIC CENTER INRBC 0.0 <=0.0 % [facility] Comment: The INRBC (instrument NRBC) value reflec ts the enumeration of nucleated red blood cells contained i n a 200uL sample of whole blood analyzed by the instrumen t. This value may differ from the NRBC value reported in a manual differential, which is based on a 100 cell differentia l. Specimen Anatomical Collection Method Collection Time Receive d Time (Source) Location / / Volume Laterality Blood 02/14/2023 11:36 02/14/2023 AM CDT 11:42 AM CDT Nadia GARSIA LAB BLOOD ORDERABLES Performing Organization Address City/[facility] Phon e Number [facility] DIAGNOSTIC Unless otherwise noted, [place], [place] [address] CENTER all lab tests performed by: Division of Pathology and Laboratory Medicine [address] [place] [address] Glomerular Filtration Rate (02/14/2023 11:36 AM CDT) athologist Signature eGFR 85 >=60 [facility] mL/min/1.73 DIAGNOSTIC sq. m CENTER Comment: The eGFRcr is calculated with the 2020 KD-EPI creatinine equation using creatinine, patient's age, and sex for adults 18 years of age and older. Other factors, especially muscle mass, may affect accuracy and need to be considered. According to the Kidney Disease: Improvi ng Global Outcomes (KDIGO) CKD Work Group 2012 Clinical Practice Guideline, chronic kidney disease (CKD) is defined as the abnormalities of kidney structure or function, present for more than 3 months, with implications for health. CKD should be c lassified by cause, GFR category, and albuminuria category. KDIGO guidelines provide the following GFR categories Stage Description GFR mL/min/1.73 m2 G1* Normal or high >= 90 G2* Mildly decreased 60-89 G3a Mildly to moderately decreased 45-59 G3b Moderately to severely decreased 30- 44 G4 Severely decreased 15-29 G5 Kidney failure <15 *In the absence of evidence of kidney da mage, neither G1 nor G2 fulfill criteria for CKD. Specimen Anatomical Collection Method Collection Time Receive d Time (Source) Location / / Volume Laterality Blood 02/14/2023 11:36 02/14/2023 AM CDT 11:55 AM CDT Nadia AGRSIA LAB BLOOD ORDERABLES Performing Organization Address City/State/ZIP Code Phon e Number IN [facility] Unless otherwise noted, [place], [place] [address] CENTER all lab tests performed by: Division of Pathology and Laboratory Medicine [address] Fractionated Bilirubin (02/14/2023 11:36 AM CDT) athologist Signature Bili Total 0.9 <=1.2 mg/dL IN [facility] Comment: Indocyanine Green (ICG) may cause falsel y elevated bilirubin results. Total and direct bilirubin must not be measured from samples containing indocyanine green. False elevation of total bilirubin can b e seen in patients with IgG concentrations above 28 g/L. Bili Direct 0.3 <=0.3 mg/dL IN [facility] Comment: Indocyanine Green (ICG) may cau se falsely elevated bilirubin results. Total and direct bilirubin must not be measure d from samples containing indocyanine green. Bili Indirect 0.6 0.0 - 0.9 mg/dL IN [facility] Specimen Anatomical Collection Method Collection Time Receive d Time (Source) Location / / Volume Laterality Blood 02/14/2023 11:36 02/14/2023 AM CDT 11:55 AM CDT Nadia GARSIA LAB BLOOD ORDERABLES Performing Organization Address City/State/ZIP Code Phon e Number [facility] Unless otherwise noted, [place], [place] [address] CENTER all lab tests performed by: Division of Pathology and Laboratory Medicine [address] [place] (ABNORMAL) Differential (02/14/2023 11:36 AM CDT) athologist Signature Neutrophil % 81.1 (H) 42.0 - [facility] 66.0 % DIAGNOSTIC CENTER Lymphocyte % 6.8 (L) 24.0 - [facility] 44.0 % DIAGNOSTIC CENTER Monocyte % 8.3 (H) 2.0 - 7.0 [facility] % DIAGNOSTIC CENTER Eosinophil % 1.3 1.0 - 4.0 [facility] % DIAGNOSTIC CENTER Basophil % 0.3 0.0 - 1.0 [facility] % DIAGNOSTIC CENTER IGRE % 2.2 (H) 0.0 - 0.4 [facility] % DIAGNOSTIC CENTER Comment: IGRE % count includes Metamyelo cytes, Myelocytes, and Promyelocytes. Neutrophil Abs 5.17 1.70 - 7.30 K/uL IN [facility] Lymphocyte Abs 0.43 (L) 1.00 - 4.80 K/uL IN [facility] Monocyte Abs 0.53 0.08 - 0.70 K/uL IN MD [facility] Eosinophil Abs 0.08 0.04 - 0.40 K/uL IN [facility] Basophil Abs 0.02 0.00 - 0.10 K/uL IN MD [facility] DIAGNOSTIC [place] IG Abs 0.14 (H) 0.00 - 0.04 K/uL IN MD [facility] C[facility] Specimen Anatomical Collection Method Collection Time Receive d Time (Source) Location / / Volume Laterality Blood 02/14/2023 11:36 02/14/2023 AM CDT 11:42 AM CDT Nadia Bowden PA LAB BLOOD ORDERABLES Performing Organization Address City/State/ZIP Code Phon e Number [facility] Unless otherwise noted, [place] [phone] [place] all lab tests performed by: Division of Pathology and Laboratory Medicine [address] [place] (ABNORMAL) BUN (02/14/2023 11:36 AM CDT) P athologist Signature BUN 25 (H) 6 - 23 [facility] mg/dL DIAGNOSTIC CENTER Specimen Anatomical Collection Method Collection Time Receive d Time (Source) Location / / Volume Laterality Blood 02/14/2023 11:36 02/14/2023 AM CDT 11:55 AM CDT Nadia Bowden PA LAB BLOOD ORDERABLES Performing Organization Address City/[facility] Code Phon e Number [facility] DIAG[facility]STIC Unless otherwise noted, [address] all lab tests performed by: Division of Pathology and Laboratory Medicine [address] [place] (ABNORMAL) ALT (02/14/2023 11:36 AM CDT) P athologist Signature ALT 61 (H) <=41 U/L [facility] Specimen Anatomical Collection Method Collection Time Receive d Time (Source) Location / / Volume Laterality Blood 02/14/2023 11:36 02/14/2023 AM CDT 11:55 AM CDT Nadia Bowden PA LAB BLOOD ORDERABLES Performing Organization Address City/[facility]/ZIP Code Phon e Number [facility] Unless otherwise noted, [place] [phone] [place] all lab tests performed by: Division of Pathology and Laboratory Medicine [address] (ABNORMAL) Aspartate Aminotransferase (02/14/2023 11:36 AM CDT) P athologist Signature AST 49 (H) <=40 U/L [facility] Specimen Anatomical Collection Method Collection Time Receive d Time (Source) Location / / Volume Laterality Blood 02/14/2023 11:36 02/14/2023 AM CDT 11:55 AM CDT Nadiadylan Bowden PA LAB BLOOD ORDERABLES Performing Organization Address City/[facility]/ZIP Code Phon e Number [facility] DIAG[facility]STIC Unless otherwise noted, [place] [phone] [place] all lab tests performed by: Division of Pathology and Laboratory Medicine [address] Total Protein (02/14/2023 11:36 AM CDT) athologist [facility] Total Protein 7.4 6.4 - 8.3 [facility] g/dL DIAGNOSTIC CENTER Specimen Anatomical Collection Method Collection Time Receive d Time (Source) Location / / Volume Laterality Blood 02/14/2023 11:36 02/14/2023 AM CDT 11:55 AM CDT Nadia Bowden PA LAB BLOOD ORDERABLES Performing Organization Address City/State/ZIP Code Phon e Number [facility] Unless otherwise noted, [address] all lab tests performed by: Division of Pathology and Laboratory Medicine [address] [place] Phosphorus Level (02/14/2023 11:36 AM CDT) [facility] Phosphorus 3.3 2.5 - 4.5 [facility] mg/dL DIAGNOSTIC CENTER Specimen Anatomical Collection Method Collection Time Receive d Time (Source) Location / / Volume Laterality Blood 02/14/2023 11:36 02/14/2023 AM CDT 11:55 AM CDT Nadia GARSIA LAB BLOOD ORDERABLES Performing Organization Address City/[facility]/ZIP Code Phon e Number [facility] Unless otherwise noted, [address] all lab tests performed by: Division of Pathology and Laboratory Medicine [facility] (ABNORMAL) Alkaline Phosphatase (02/14/2023 11:36 AM CDT) athologist [facility] Alk Phos 244 (H) 40 - 129 [facility] U/L DIAGNOSTIC CENTER Specimen Anatomical Collection Method Collection Time Receive d Time (Source) Location / / Volume Laterality Blood 02/14/2023 11:36 02/14/2023 AM CDT 11:55 AM CDT Nadia Bowden PA LAB BLOOD ORDERABLES Performing Organization Address City/[facility]/ZIP Code Phon e Number [facility] Unless otherwise noted, [place] [phone] [place] all lab tests performed by: Division of Pathology and Laboratory Medicine [address] [place] Magnesium Level (02/14/2023 11:36 AM CDT) athologist Signature Magnesium 1.7 1.6 - 2.6 [facility] mg/dL DIAGNOSTIC CENTER Specimen Anatomical Collection Method Collection Time Receive d Time (Source) Location / / Volume Laterality Blood 02/14/2023 11:36 02/14/2023 AM CDT 11:55 AM CDT Nadia GARSIA LAB BLOOD ORDERABLES Performing Organization Address City/[facility]/ZIP [facility] Phon e Number [facility] DIAG[facility]STIC Unless otherwise noted, [address] all lab tests performed by: Division of Pathology and Laboratory Medicine [address] [place] (ABNORMAL) LDH (02/14/2023 11:36 AM CDT) athologist Signature LDH 629 (H) 135 - 225 [facility] U/L DIAGNOSTIC CENTER Comment: Results greater than 1651 U/L m ay not be reliable due to matrix effect with extended dilution as it exceeds the manu facturer's recommended limit. Caution should be exercised when interpreting such valu es and done in conjunction with clinical context. Specimen Anatomical Collection Method Collection Time Receive d Time (Source) Location / / Volume Laterality Blood 02/14/2023 11:36 02/14/2023 AM CDT 11:57 AM CDT Nadia GARSIA LAB BLOOD ORDERABLES Performing Organization Address City/[facility] Phon e Number [facility] DIAGNOSTIC Unless otherwise noted, [address] all lab tests performed by: Division of Pathology and Laboratory Medicine [address] [place] (ABNORMAL) Glucose Level (02/14/2023 11:36 AM CDT) athologist [facility] Glucose Level 124 (H) 70 - 99 [facility] mg/dL DIAGNOSTIC CENTER Comment: Effective 06/27/16, the glucose reference intervals have been updated based on [place] [employer] guidelines (Standards of Medical Care in Diabetes 2016. Diabetes Care 2016; 39: S13-S22). Fasting blood glucose: Normal: 70-99 mg/dL Impaired fasting glucose (increased risk for diabetes or pre-diabetes): 100- 125 mg/dL Diabetes mellitus: >/=126 mg/dL Random blood glucose: Normal: 70-199 mg/dL Note: Random glucose >100 mg/dL is assoc iated with increased risk for diabetes Specimen Anatomical Collection Method Collection Time Receive d Time (Source) Location / / Volume Laterality Blood 02/14/2023 11:36 02/14/2023 AM CDT 11:55 AM CDT Nadia GARSIA LAB BLOOD ORDERABLES Performing Organization Address City/[facility] Phon e Number [facility] DIAGNOSTIC Unless otherwise noted, [address] all lab tests performed by: Division of Pathology and Laboratory Medicine [address] [place] (ABNORMAL) CEA (02/14/2023 11:36 AM CDT) athologist Signature CEA 6.9 (H) <=3.8 ng/mL [facility]STIC [place] Comment: Reference Ranges: Smoker: 0.0 - 5.5 Non-Smoker: 0.0 - 3.8 This test is measured by electrochemilum inescence immunoassay on UUSEE Chrissy immunoassay analyzers. Results obtained in different methods are not interchangeable. Specimen Anatomical Collection Method Collection Time Receive d Time (Source) Location / / Volume Laterality Blood 02/14/2023 11:36 02/14/2023 AM CDT 11:55 AM CDT Nadia GARSIA LAB BLOOD ORDERABLES Performing Organization Address [facility] Phon e Number [facility] DIAG[facility]STIC Unless otherwise noted, [address] all lab tests performed by: Division of Pathology and Laboratory Medicine [address] [place] Calcium Level (02/14/2023 11:36 AM CDT) athologist Signature Calcium Lvl 9.8 8.4 - 10.2 [facility] mg/dL DIAGNOSTIC CENTER Specimen Anatomical Collection Method Collection Time Receive d Time (Source) Location / / Volume Laterality Blood 02/14/2023 11:36 02/14/2023 AM CDT 11:55 AM CDT Nadia GARSIA LAB BLOOD ORDERABLES Performing Organization Address City/[facility] Phon e Number [facility] DIAGNOSTIC Unless otherwise noted, [place] [phone] [place] all lab tests performed by: Division of Pathology and Laboratory Medicine [address] [place] Albumin Level (02/14/2023 11:36 AM CDT) athologist Signature Albumin Lvl 3.5 3.5 - 5.2 [facility] gm/dL [facility] Specimen Anatomical Collection Method Collection Time Receive d Time (Source) Location / / Volume Laterality Blood 02/14/2023 11:36 02/14/2023 AM CDT 11:55 AM CDT Nadia GARSIA LAB BLOOD ORDERABLES Performing Organization Address City/State/ZIP Code Phon e Number [facility] DI[facility]NOSTIC Unless otherwise noted, [place] [phone] [place] all lab tests performed by: Division of Pathology and Laboratory Medicine [address] [place] [address] (ABNORMAL) Electrolyte Panel (02/14/2023 11:36 AM CDT) P athologist Signature Sodium Lvl 137 136 - 145 [facility] mEq/L DIAGNOSTIC CENTER Potassium Lvl 3.5 3.5 - 5.1 [facility] mEq/L [facility] Chloride 95 (L) 98 - 107 [facility] mEq/L DI[facility] CO2 31 (H) 22 - 29 [facility] mEq/L [facility] Anion Gap 11 4 - 14 [facility] mEq/L [facility] Specimen Anatomical Collection Method Collection Time Receive d Time (Source) Location / / Volume Laterality Blood 02/14/2023 11:36 02/14/2023 AM CDT 11:55 AM CDT Nadia GARSIA LAB BLOOD ORDERABLES Performing Organization Address City/[facility]/ZIP Code Phon e Number [facility] Unless otherwise noted, [place] [phone] [place] all lab tests performed by: Division of Pathology and Laboratory Medicine [address] [place] [address] [facility] Chest (02/06/2023 2:19 PM TELEPHONE OPERATORS SUPERVISOR) Specimen (Source) Anatomical Location Collection Method / Collectio n Time Received Time / Laterality Volume Narrative Systemgenerated, Documentation - 023 2:19 PM CDT Study acquired at another institution. For comparison only. No Milo originated interpretation requested or a vailable. Porsche Holm MD IMG OUTSIDE IMAGE ORDERABLES [facility] Interventional (02/06/2023 2:18 PM TELEPHONE OPERATORS SUPERVISOR) Specimen (Source) Anatomical Location Collection Method / Collectio n Time Received Time / Laterality Volume Narrative Systemgenerated, Documentation - 023 2:18 PM CDT Study acquired at another institution. For comparison only. No Mil[place] originated interpretation requested or a vailable. Porsche Holm MD IMG OUTSIDE IMAGE ORDERABLES [facility] CT Chest (01/31/2023 2:18 PM TELEPHONE OPERATORS SUPERVISOR)Only the most recent of2 resultswithin the time period is included. Specimen (Source) Anatomical Location Collection Method / Collectio n Time Received Time / Laterality Volume Narrative Systemgenerated, Documentation - 023 2:18 PM CDT Study acquired at another institution. For comparison only. No [place] originated interpretation requested or a vailable. Porsche Holm MD IMG OUTSIDE IMAGE ORDERABLES [facility] MRI ABDOMEN (01/23/2023 2:24 PM TELEPHONE OPERATORS SUPERVISOR)Only the most recent of2 resultswithin the time period is included. Specimen (Source) Anatomical Location Collection Method / Collectio n Time Received Time / Laterality Volume Narrative Systemgenerated, Documentation - 023 2:25 PM CDT Study acquired at another institution. For comparison only. No MD Pedraza originated interpretation requested or a vailable. Porsche LUNDBERGG OUTSIDE IMAGE ORDERABLES Pathology Outside Interpretation (12/27/2022)Only the most recent of2 results within the time period is included. Component Value Ref Test Analysis Performed Pathologis t Range Method Time At Signature Materials Accession#, Stained, Block, Unstained Collected Received 02/28/2023 [facility] Received A. [id number], 0 SS, 0 BLOCKS, 7 USS 12/27/2022 02/27/2023 5:41 PM CDT Diagnosis Seven unstained slides ([id number], collected on 2022): 02/28/2023 [facility] Electronically 5:41 PM signed by Esophagus, mass, biopsy: CDT Jessika, INVASIVE POORLY DIFFERENTIATED CARCINOMA. (SEE COMMENT) Kaleigh Almazan MD on 02/29/20 23 at 5:41 PM Comment Immunohistochemical stains t o further classify the tumor have been performed on [id number]. Please see separate report. 0 02/28/2023 [facility] 5:41 PM CDT Biomarker Tumor: A1 02/28/2023 [facility] Block(s) 5:41 PM CDT Disclaimer "Some tests reported 02/28/2023 [facility] here may have been 5:41 PM developed and CDT performance characteristics determined by [facility] Pathology and Laboratory Medicine. These tests have not been specifically cleared or approved by the U.S. Food and Drug Administration. If applicable, controls were reviewed and showed appropriate reactivity." Specimen (Source) Anatomical Collection Method Collection Time Re ceived Time Location / / Volume Laterality Tissue specimen 12/27/2022 02/27/2023 9 :08 (specimen) AM CDT Israel Headley MD LAB PATHOLOGY ORDERABLES Performing Organization Address City/State/ZIP Code Phon e Number [facility] [place] [address], [address] [place] after 10/11/2022 Insurance Payer Benefit Plan / Subscriber ID Effective Dates Phone Addre ss Type Group [employer] POS [id number] 2014-Present [id number] [place] [address] Care Teams Design Printing Machine Setter Relationship Specialty Start Date End Date Porsche Holm MD PCP - General Gastrointestinal Medical 02/09/23 Oncology [address] [place] [address] Clinical Dietitian Nutrition 02/20/23 [address] [facility] [address] [place] [address]
--- OUTSIDE RECORDS SUMMARY | 2023-10-11 07:50 | XMS REPORT | Continuity of Care Document ---
:1950 Author Organization [facility] t Address [address] [place] [address] [place] [id number] Care Team Providers Name Role Phone [phone] Primary Care Physician Unavailable SYSTEM, PROVIDER NOT IN Attending Clinician Unavailable BOLA LANGLEY Attending Clinician Unavailable Angelica Stacy MD Attending Clinician Viktoriya FULLER, Suzanne Attending Clinician Jordyn FULLER, Suman Coronel Attending Clinician [phone] Bola Langley MD Attending Clinician Sheikh ALINA, Ajay Humphrey Attending Clinician Lidia FULLER, Ian Navarrete Attending Clinician Patricia FULLER, Keaton Lawrence Attending Clinician [phone] ANGELICA STACY Attending Clinician Unavailable Nadia Hernadez Attending Clinician PORSCHE RUIZ Attending Clinician Unavailable Porsche Ruiz MD Attending Clinician Pam Mccormack RD Attending Clinician Solo FULLER, Ronald Noble Attending Clinician Fang FULLER, Israel Braun Attending Clinician Jasbir BLANCHARD, Cristal Braun Attending Clinician NADIA BOWDEN Attending Clinician Unavailable Sarah RN, Deisy Mosqueda Attending Clinician Unavailable Leon RN, Stiven Solorzano Attending Clinician Unavailable Ivelisse RN, Rita Solorzano Attending Clinician Unavailable Monisha RN, Stephanie Garrett Attending Clinician Unavailable Russell [facility], Autumn Attending Clinician Luis Enrique RN, Jessica Reynolds Attending Clinician Sandy FULLER, Sissy Attending Clinician SISSY VARGAS Attending Clinician Unavailable Radha FULLER, Tahir Attending Clinician Avinash RN, Sonia Braun Attending Clinician Harley Kirkland Attending Clinician Unavailable Shea Abraham APRN Attending Clinician Sherice BLANCHARD, Torie Nunes Attending Clinician Unavailable Stephanie Awan Attending Clinician Unknown, Attending Attending Clinician Unavailable STEPHANIE YAÑEZ Attending Clinician Unavailable SUMAN BELLE Admitting Clinician Unavailable SISSY VARGAS Admitting Clinician Unavailable Payers Payer Name Policy Type Policy Number Effective Date Expiration Date Berry conte MEDICARE PART A [id number] 2017 00:00:00 BCBS OS [id number] 2023 POS/PPO/EPO 00:00:00 Problems Condition Condition Condition Status Onset Resolution Last Treating Co mments Source Name Details Category Date Date Treatment Clinician Date Esophageal Esophageal Disease [facility] cancer, cancer, nde 08-28 [facility] stage IV stage IV 00:00: Medica l 00 Center Melena Melena Disease Active [facility] 08-28 [facility] 00:00: Medical 00 Center Dehydratio Dehydratio Disease Active U nivers n n 3-23 ity of 00:00: [place] 00 MD Radha fuentes [facility] 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 Family History Family Member Diagnosis Comments Start Date Stop Date Source Natural father Prostate cancer Unive rsity of [facility] Paternal grandmother Colon cancer Un iversity of [facility] Social History Social Habit Start Date Stop Date Quantity Comments Source Sexual orientation Univer sity of [place] Leonel son [facility] History [facility] Non-Med Medical Center History of tobacco Current smoker [facility] Alcohol intake 2023-08-29 2023-08-29 Ex-drinker [facility] 00:[facility]00 00:00:00 (finding) Medical Center History [facility] 2023-08-28 2023-08-[address] [facility] Transport Med 00:00:00 00:00:[address] History [facility] 2023-08-28 2023-08-[address] [facility] Housing Unable to 00:00:00 00:00:00 Medical Center Pay History [facility] 2023-08-28 2023-08-[address] [facility] Housing Places 00:00:00 00:00:00 Medical Ce nter Lived History [facility] 2023-08-28 2023-08-[address] [facility] Housing Homeless 00:00:00 00:00:00 Medical Center Last Year Tobacco use and 2023-08-27 2023-08-[address] [facility] kes exposure 00:00:00 00:00:00 tobacco non-user Medical Center History of Social 2023-02-25 2023-02-25 Univers ity of function 00:00:00 00:00:00 Chester stephens [facility] Exposure to 2022-06-13 2022-06-23 Not sure [facility]-CoV-2 (event) 00:00:00 09:57:00 [facility] Sex [birth year] Universit y of 00:00:00 00:00:00 Chester stephens [facility] Smoking Status Start Date Stop Date Source Ex-smoker 2023-08-27 00:00:00 2023-08-27 00:00:00 [facility] Never smoked tobacco [facility] Medications Ordered Filled Start Stop Current Ordering Indication Dosage Frequency Signature Comments Components Source Medication Medication Date Date Medication? Clinician (SIG) Name Name metFORMIN 2022-12- No type 2 1000mg Take [address] (GLUMETZA) 0-03 10-03 diabetes tablet Faviola kes 1000 MG 13:11: 00:00 mellitus (1,000 mg Medical (MOD) 24 hr 07 :00 total) by Robert ter tablet mouth daily with breakfast. pantoprazol 2022-12 Yes 40mg Q.5D Take [address] [facility] 0-03 tablet (40 [facility] (PROTONIX) 00:00: mg total) Me dical 40 MG 00 by mouth 2 Center tablet (two) times daily. sucralfate 2022-12- No 1g Take [address] (CARAFATE) 0-03 11-02 mLs (1 g Luke s 100 mg/mL 00:00: 23:59 total) by Me dical suspension 00 :00 mouth Center every 6 (six) hours for 30 days. ondansetron 2022- No Malignant 8mg Dissolve 1 Univers (ZOFRAN-ODT 02-28 neoplasm of tablet (8 ity of ) 8 mg 00:00: 00:00 cardio-esop mg) on the [place] disintegrat 00 :00 hageal tongue ing tablet junction of every 8 Anderso stomach (eight) n hours as Cancer needed for Center nausea or vomiting (First choice). prochlorper 2022- No Malignant 10mg Take 1 Univers azine 3-30 03-29 neoplasm of tablet (10 ity of (COMPAZINE) 00:00: 00:00 cardio-esop mg) by [place] 10 mg 00 :00 hageal mouth MD tablet junction of every 6 And erso stomach (six) n hours as Cancer needed for Center nausea or vomiting (Second choice). scopolamine Yes Malignant 1{patch Place 1 Univers (Transderm- 3-27 neoplasm of } patch on ity of [place]) 1.5 00:00: cardio-esop the skin [place] mg 00 hageal every 72 MD transdermal junction of hours. Anderso patch stomach n Cancer Center acetaminoph Yes 500mg Take 1 Uni vers en 3-20 tablet ity of (TYLENOL) 13:28: (500 mg[place] 500 mg 50 by mouth MD tablet every 6 Anderso (six) n hours as Cancer needed for Center mild pain. senna Yes 1{tbl} Take 1 Univers (SENOKOT) 3-20 tablet by ity o f 8.6 mg 13:28: mouth [place] tablet 50 daily as MD needed. Anderso n Cancer Center acetaminoph Yes TAKE 1 Univ ers en-codeine 3-08 TABLET BY ity of (TYLENOL 00:00: MOUTH [place] #3) 300 00 EVERY 4 MD mg-30 mg HOURS Anderso tablet NEEDED FOR n PAIN Cancer Center atorvastati Yes 40mg Take 1 Univ ers n (LIPITOR) 3-01 tablet (40 it y of 40 mg 00:00: mg) by [place] tablet 00 mouth MD daily. Anderso n [facility] Center metFORMIN Yes 1000mg Take 1 Univ ers (GLUCOPHAGE 2-27 tablet ity of ) 1000 mg 00:00: [place]1,000 mg[place] tablet 00 by mouth MD daily with Anderso breakfast. n Cancer Center olmesartan- Yes 1{tbl} Take 1 Un prudencio hydrochloro 2-27 tablet by ity of thiazide 00:00: mouth [place] (BENICAR 00 daily. HCT) Anderso 20-12.5 mg n per tablet Cancer Center omeprazole Yes TAKE 1 Unive rs (PriLOSEC) 2-22 CAPSULE BY ity of 40 MG 00:00: MOUTH IN [place] capsule 00 THE MD MORNING Anderso n [facility] ondansetron Yes DISSOLVE 1 Univers (ZOFRAN-ODT 2-10 TABLET IN ity of ) 4 mg 00:00: MOUTH [place] disintegr 00 EVERY 8 MD ing tablet HOURS Leonel so NEEDED n [facility] molnupiravi Yes [id number] 800mg Take 4 Univers r 200 mg 7-24 capsules ity of capsule 00:00: by mouth [place] 00 every 12 Medical (twelve) Branch hours. atorvastati Yes Univer s n 40 mg 7-15 ity of tablet 00:00: [place] [address] [facility] atorvastati Yes Univer s n 40 mg 7-15 ity of tablet 00:00: [place] Medical Branch atorvastati 0 Yes Univer s n 40 mg 7-15 ity of tablet 00:00: [place] 00 [facility] metFORMIN 2021-0 Yes 1000mg Take 1,000 Univers 1,000 mg 7-12 mg by ity of tablet 00:00: mouth in [place] 00 the Medical morning Branch and 1,000 mg in the evening. Take with meals. olmesartan- 0 Yes 1{tbl} Take 1 Un prudencio hydrochloro 7-12 tablet by ity of thiazide 00:00: mouth in [place] 20-12.5 mg 00 the Medical per tablet morning. Bran h metFORMIN 0 Yes 1000mg Take 1,000 Univers 1,000 mg 7-12 mg by ity of tablet 00:00: mouth in [place] 00 the Medical morning Branch and 1,000 mg in the evening. Take with meals. olmesartan- 2021-0 Yes 1{tbl} Take 1 Un prudencio hydrochloro 7-12 tablet by ity of thiazide 00:00: mouth in [place] 20-12.5 mg 00 the Medical per tablet morning. Branc h metFORMIN 2021-0 Yes 1000mg Take 1,000 Univers 1,000 mg 7-12 mg by ity of tablet 00:00: mouth in [place] the Medical morning Branch and 1,000 mg in the evening. Take with meals. olmesartan- 2022-0 Yes 1{tbl} Take 1 Un prudencio hydrochloro 7-12 tablet by ity of thiazide 00:00: mouth in [place] 20-12.5 mg 00 the Medical per tablet morning. Branc h Vital Signs Vital Name Observation Time Observation Value Comments Source HEIGHT 2023-08-27 20:57:00 175.3 cm WEIGHT 2023-08-27 20:57:00 76.567 kg HEIGHT 2023-08-27 20:57:00 175.3 cm WEIGHT 2023-08-27 20:57:00 76.567 kg HEIGHT 2023-08-27 20:57:00 175.3 cm WEIGHT 2023-08-27 20:57:00 76.567 kg Systolic blood 2022-06-23 14:57:00 115 mm[Hg] Univer sity [facility] Diastolic blood 2022-06-23 14:57:00 75 mm[facility]Hg[facility] 2022-06-23 14:57:00 85 /min [facility] Body temperature 2022-06-23 14:57:00 36.72 Stephany [facility] Respiratory rate 2022-06-23 14:57:00 16 /min [facility] Body height 2022-06-23 14:57:00 180.3 cm [facility] Body weight 2022-06-23 14:57:00 122.38 kg [facility] BMI 2022-06-23 14:57:00 37.63 kg/m2 [facility] Oxygen saturation in 2022-06-23 14:57:00 97 /min [facility] Arterial blood by [facility] [place] [facility] Pulse oximetry Branch Systolic blood 2023-09-04 10:47:00 94 mm[Hg] [facility] Diastolic blood 2023-09-04 10:47:00 78 mm[Hg] [facility] t [facility] Heart rate 2023-09-04 10:47:00 88 /min [facility] Body temperature 2023-09-04 10:47:00 36.67 Stephany [facility] Respiratory rate 2023-09-04 10:47:00 17 /min [facility] Oxygen saturation in 2023-09-04 10:47:00 94 /min [facility] Arterial blood by Medical Ce ntlacy Pulse oximetry Body height 2023-08-27 20:57:00 175.3 cm [facility] Body weight 2023-08-27 20:57:00 76.567 kg [facility] BMI 2023-08-27 20:57:00 24.93 kg/m2 [facility] Systolic blood 2023-02-25 19:02:24 129 mm[Hg] Univer sity of pressure Chester Brooks on [facility] Diastolic blood 2023-02-25 19:02:24 84 mm[Hg] Unive rsity of pressure Chester Brooks on [facility] Heart rate 2023-02-25 19:02:24 77 /min Universi ty of [place] Brooks on [facility] Body temperature 2023-02-25 19:02:24 36.61 Stephany Univ ersity Chester Brooks on [facility] Respiratory rate 2023-02-25 19:02:24 16 /min [facility] Brooks on [facility] Oxygen saturation in 2023-02-25 19:02:24 100 /min University Arterial blood by Chester nguyne Pulse oximetry [facility] Body weight 2023-02-25 18:59:00 99.02 kg Universi ty Chester Brooks on [facility] BMI 2023-02-25 18:59:00 32.11 kg/m2 Universi ty Chester Brooks on [facility] Body height 2023-02-14 14:19:00 175.6 cm Universi ty Chester Brooks on [facility] Procedures Procedure Date / Time Performing Clinician Source Performed PREPARE LEUKO-REDUCED RBC 2023-09-04 23:55:00 Suman Belle CH, I [facility] CBC W/PLT COUNT & AUTO 2023-09-04 01:10:00 Suman Belle [facility] (CELLAVISION MANUAL DIFF) 2023-09-04 01:10:00 Suman Belle CH, I [facility] BASIC METABOLIC PANEL 2023-09-04 01:10:00 Suman Belle [facility] CBC W/PLT COUNT & AUTO 2023-09-04 01:10:00 Suman Belle [facility] DIFFERENTIAL [facility] POCT-GLUCOSE METER 2023-09-03 20:11:[address] [facility] POCT-GLUCOSE METER 2023-09-03 16:54:00 [facility] TRANSFUSE LEUKO-REDUCED 2023-09-03 13:08:00 [facility] RED BLOOD CELLS [facility] POCT-GLUCOSE METER 2023-09-03 11:31:[address] [facility] MISCELLANEOUS LAB ORDER 2023-09-03 09:43:00 [facility] TYPE AND SCREEN, AUTOMATED 2023-09-03 09:43:00 Suman Belle [facility] POCT-GLUCOSE METER 2023-09-03 08:11:[address] [facility] CBC W/PLT COUNT & AUTO 2023-09-03 05:34:00 Suman Belle [facility] (CELLAVISION MANUAL DIFF) 2023-09-03 05:34:00 Suman Belle CH, I [facility] BASIC METABOLIC PANEL 2023-09-03 05:34:[address] [facility] CBC W/PLT COUNT & AUTO 2023-09-03 05:34:00 JordynSuman [facility] POCT-GLUCOSE METER 2023-09-02 21:32:00 [facility] PO[facility]SE MET[facility] 2023-09-02 15:56:[address] [facility] VITAMIN B12 2023-09-02 12:46:00 Darius [facility] PAROVIRUS B19 PCR, 2023-09-02 12:46:00 Darius [facility] RETICULOCYTE COUNT 2023-09-02 12:46:00 Darius [facility] POCT-GLUCOSE METER 2023-09-02 11:40:00 [facility] POCT-GLUCOSE METER 2023-09-02 07:33:00 [facility] CBC W/PLT COUNT & AUTO 2023-09-02 04:26:00 [facility] (CELLAVISION MANUAL DIFF) 2023-09-02 04:26:[address] [facility] BASIC METABOLIC PANEL 2023-09-02 04:26:00 [facility] CBC W/PLT COUNT & AUTO 2023-09-02 04:26:00 [facility] POCT-GLUCOSE METER 2023-09-01 20:29:00 [facility] BASIC METABOLIC PANEL 2023-09-01 05:09:00 [facility] CBC (HEMOGRAM ONLY) 2023-09-01 05:09:[address] [facility] POCT-GLUCOSE METER 2023-08-31 20:52:00 [facility] POCT-GLUCOSE METER 2023-08-31 15:15:00 [facility] CBC (HEMOGRAM ONLY) 2023-08-31 13:00:[address] [facility] POCT-GLUCOSE METER 2023-08-31 11:34:00 [facility] POCT-GLUCOSE METER 2023-08-31 08:47:00 [facility] BASIC METABOLIC PANEL 2023-08-31 05:46:00 [facility] CBC (HEMOGRAM ONLY) 2023-08-31 05:46:[address] [facility] PREPARE LEUKO-REDUCED 2023-08-30 23:55:00 [facility] PREPARE LEUKO-REDUCED RBC 2023-08-30 23:55:00 Mitch Garcia [facility] POCT-GLUCOSE METER 2023-08-30 21:49:00 [facility] POCT-GLUCOSE METER 2023-08-30 15:26:00 [facility] POCT-GLUCOSE METER 2023-08-30 11:28:00 [facility] POCT-GLUCOSE METER 2023-08-30 07:36:00 [facility] BASIC METABOLIC PANEL 2023-08-30 05:06:00 [facility] FERRITIN 2023-08-30 05:06:00 [facility] IRON, TIBC, % SAT. 2023-08-30 05:06:00 [facility] (WITHOUT FERRITIN) [facility] CBC (HEMOGRAM ONLY) 2023-08-30 05:06:[address] [facility] PREPARE LEUKO-REDUCED RBC 2023-08-29 23:55:00 [facility] POCT-GLUCOSE METER 2023-08-29 15:40:00 [facility] CBC W/PLT COUNT & AUTO 2023-08-29 15:18:00 Jose [facility] DIFFERENTIAL [place] (CELLAVISION MANUAL DIFF) 2023-08-29 15:18:00 Garcia [facility] CBC W/PLT COUNT & AUTO 2023-08-29 15:18:00 Jose [facility] DIFFERENTIAL [place] REPORT OF PROCEDURE - 2023-08-29 14:14:01 Sheikh [facility] ENDOSCOPY URL Center EGD 2023-08-29 13:32:00 Ajay Mejia [facility] (ESOPHAGOGASTRODUODENOSCOP Cente r Y) POCT-GLUCOSE METER 2023-08-29 11:20:00 [facility] TRANSFUSE LEUKO-REDUCED 2023-08-29 09:11:00 [facility]LOOD CELLS Center POCT-GLUCOSE METER 2023-08-29 07:40:00 [facility] CBC (HEMOGRAM ONLY) 2023-08-29 04:03:[address] [facility] BASIC METABOLIC PANEL 2023-08-29 04:03:00 [facility] TRANSFUSE LEUKO-REDUCED 2023-08-29 01:40:00 [facility] PLATELETS [facility] TRANSFUSE LEUKO-REDUCED 2023-08-28 22:10:00 [facility] RED BLOOD CELLS [facility] POCT-GLUCOSE METER 2023-08-28 20:26:00 [facility] POCT-GLUCOSE METER 2023-08-28 16:45:00 [facility] ABORH, MANUAL 2023-08-28 13:46:00 Franci Israel [facility] POCT-GLUCOSE METER 2023-08-28 13:10:00 [facility] TYPE AND SCREEN, AUTOMATED 2023-08-28 12:04:00 [facility] POCT-GLUCOSE METER 2023-08-28 07:45:00 [facility] CBC (HEMOGRAM ONLY) 2023-08-28 04:16:00 Viktoriya [facility] COMPREHENSIVE METABOLIC 2023-08-28 04:16:00 Viktoriya [facility] POCT-GLUCOSE METER 2023-08-27 23:25:00 Viktoriya [facility] CBC W/PLT COUNT & AUTO 2023-08-27 21:08:[address] [facility] DIFFERENTIAL [place] (CELLAVISION MANUAL DIFF) 2023-08-27 21:08:00 Suzanne Sadler [facility] CBC W/PLT COUNT & AUTO 2023-08-27 21:08:[address] [facility] DIFFERENTIAL [place] COMPREHENSIVE METABOLIC 2023-08-27 21:08:00 [facility] HEMOGLOBIN A1C 2023-08-27 21:08:00 Suzanne Sadler [facility] AP IHC PD-L1 MATERIAL 2023-03-01 19:13:36 [place], [facility] REQUEST [facility] AP IHC MSI (MLH1, MSH2, 2023-03-01 19:13:36 [place], [facility] MSH6, PMS2) MATERIAL [facility] AP IHC HER2/MAGALI MATERIAL 2023-02-22 02:39:38 [place], [facility] REQUEST [facility] VERIFY CATHETER TIP 2023-02-21 17:40:00 [place], [facility] PLACEMENT [facility] XR CHEST 2 VW 2023-02-21 16:35:56 [place], [facility] PATHOLOGY BIOPSY 2023-02-18 17:04:00 Sandy [facility] INTERPRETATION [facility] POC GLUCOSE SCREEN 2023-02-18 16:47:00 Sandy [facility] DIAGNOSTIC UPPER 2023-02-18 16:46:00 Sandy [facility] GASTROINTESTINAL ENDOSCOPY MD [facility] HP LB APC MUTATION 2023-02-14 16:36:00 Denn[place], [facility] ANALYSIS COLLECTION, BLOOD MD [place] [facility] HP LB BRAF MUTATION 2023-02-14 16:36:00 [place], [facility] ANALYSIS COLLECTION, BLOOD MD [place] [facility] HP LB NRAS MUTATION 2023-02-14 16:36:00 [place], [facility] ANALYSIS COLLECTION, BLOOD MD [place] [facility] COMPLETE BLOOD COUNT W/ 2023-02-14 16:36:00 [place], [facility] DIFFERENTIAL [facility] COMPREHENSIVE METABOLIC 2023-02-14 16:36:00 [place], [facility] PANEL [facility] LACTATE DEHYDROGENASE 2023-02-14 16:36:00 [place], [facility] MAGNESIUM LEVEL 2023-02-14 16:36:00 [place], [facility] PHOSPHORUS LEVEL 2023-02-14 16:36:00 [place], [facility] CARCINOEMBRYONIC ANTIGEN 2023-02-14 16:36:00 [place], Nadia [facility] .CBC 2023-02-14 16:36:00 [place], [facility] DIFFERENTIAL 2023-02-14 16:36:00 [place], [facility] GLUCOSE LEVEL 2023-02-14 16:36:00 [place], [facility] BLOOD UREA NITROGEN 2023-02-14 16:36:00 [place], Nadia [facility] [place] ELECTROLYTE PANEL 2023-02-14 16:36:00 [place], [facility] SERUM CREATININE 2023-02-14 16:36:00 [place], [facility] .GLOMERULAR FILTRATION 2023-02-14 16:36:00 [place], Nadia [facility] CALCIUM LEVEL 2023-02-14 16:36:00 [place], Nadia [facility] ALBUMIN LEVEL 2023-02-14 16:36:00 [place], Nadia [facility] ALKALINE PHOSPHATASE 2023-02-14 16:36:00 [place], Nadia [facility] ALANINE AMINOTRANSFERASE 2023-02-14 16:36:00 [place], Nadia [facility] ASPARTATE AMINOTRANSFERASE 2023-02-14 16:36:00 [place], Nadia [facility] TOTAL PROTEIN 2023-02-14 16:36:00 [place], Nadia [facility] FRACTIONATED BILIRUBIN 2023-02-14 16:36:00 [place], Nadia [facility] [place] [facility] HP LB LIQUID BIOPSY PANEL 2023-02-14 16:36:00 [place], Nadia [facility] V1 INTERPRETATION AND MD Anderso n Cancer REPORT Center MD NOBLE BLOOD CONTROL 2023-02-14 16:36:00 Nadia Bowden [facility] OSI CHEST 2023-02-06 20:19:00 Porsche Ruiz [facility] OSI INTERVENTIONAL 2023-02-06 20:18:00 Porsche Ruiz [facility] [place] OSI CT CHEST 2023-01-31 20:18:00 Porsche Ruiz [facility] OSI MRI ABDOMEN 2023-01-23 20:24:00 Porsche Ruiz [facility] OSI MRI ABDOMEN 2023-01-23 20:19:00 Porsche Ruiz [facility] OSI CT CHEST 2022-12-27 20:18:00 Porsche Ruiz [facility] PATHOLOGY OUTSIDE 2022-12-27 00:00:00 Israel Headley [facility] INTERPRETATION [facility] Plan of Care Planned Activity Planned Date Details Comments Source Future Scheduled 2024-08-[address] [facility] Test 00:00:00 [facility] r Screening (12+) [code = Tobacco Cessation Counseling and Screening (12+)] Future Scheduled 2023-10-10 COVID-19 Vaccination [facility] Test 08:31:19 ( season) MD Giuliano peterson Cancer [code = COVID-19 Center Vaccination ( season)] Future Scheduled 2023-08-02 Influenza Vaccine (#1) [facility] [code = Influenza Medical Ce nter Vaccine (#1)] Future Scheduled 2022-12-[address] [facility] 00:00:00 (12+) [code = Medical Center DEPRESSION SCREENING (12+)] Future Scheduled 2022-12-02 FALLS RISK SCREENING [facility] 00:00:00 [code = FALLS RISK Medical C enter SCREENING] Future Scheduled 2021-04-10 COVID-19 VACCINE (3 - [facility]00 Booster for Pfizer Medical C enter series) [code = COVID-19 VACCINE (3 - Booster for Pfizer series)] Future Scheduled [address] [facility] 00:00:00 aneurysm screening Medical C enter (procedure) [code = 030237697] Future Scheduled 2017 PNEUMOCOCCAL 65+ YRS [facility] 00:00:00 (1 - PCV) [code = Medical Ce nter PNEUMOCOCCAL 65+ YRS (1 - PCV)] Future Scheduled 2002 SHINGLES VACCINES ([address] [facility] 00:00:00 of 2) [code = SHINGLES Medic al Center VACCINES (1 of 2)] Future Scheduled 1971 DTAP/TDAP/TD VACCINES [facility] 00:00:00 (1 - Tdap) [code = Medical C enter DTAP/TDAP/TD VACCINES (1 - Tdap)] Future Scheduled 1970 HEPATITIS C [facility]CRE[facility]ING [facility] 00:00:00 [code = HEPATITIS C Medical Center SCREENING] Future Scheduled [address] [facility] 00:00:00 (combo) [code = CT Medical C enter Colonography (combo)] Future Scheduled [address] [facility] 00:[facility]:00 malignant neoplasm of Medica l Center colon (procedure) [code = 094239412] Future Scheduled [address] [facility] 00:[facility]:00 malignant neoplasm of Medica [facility] Center colon (procedure) [code = 295636213] Future Scheduled [address] [facility] 00:[facility]:00 malignant neoplasm of Medica l Center colon (procedure) [code = 167944903] Future Scheduled [address] [facility] 00:[facility]:00 malignant neoplasm of Medica l Center colon (procedure) [code = 318480863] Future Scheduled 1952 Sigmoidoscopy [code = [facility] Sigmoidoscopy] Medical Cente r Encounters Start End Encounter Admission Attending Care Care Encounter Source Date/Time Date/Time Type Type Clinicians Facility Department ID 2023-04-13 Outpatient SYSTEM, [facility] LINDY [id number] 21:43:32 PROVIDER Todd fuentes 2023-02-15 Outpatient SYSTEM, [facility] [id number] 16:24:28 PROVIDER Todd fuentes 2023-08-27 2023-09-04 Inpatient ER KEON LANGLEY Gastro [id number] [facility] 18:21:00 12:24:00 [facility] 2023-08-27 2023-09-04 Hospital Angelica Stacy [facility] [id number] 18:21:00 12:24:00 Encounter Suzanne Sadler [facility] 2023-08-29 2023-08-29 Surgery Mejia, [facility] [id number] 13:30[facility] 2023-08-29 Anesthesia Ian Murillo [facility] [id number] [facility] 13:32:00 14:21:00 Event [facility] 2023-08-27 2023-08-27 Travel [facility] [id number] [facility] 00:[facility] 00:00:00 [facility] 2023-03-27 2023-03-27 Documentat [place], 1.2.840.1 [id number] [facility] [place] [facility] 00:00:00 00:00:00 ion Nadia 27858.1.1 ity of 3.412.2.7 [place] .3.615419 .[facility]-03-04 2023-03-04 Outpatient MARIO RUIZ MDA MDA [id number] 13:30:18 13:30:26 PORSCHE fuentes 2023-03-04 2023-03-04 Porsche Garsia 1.2.840.1 [id number] Brian 10:00:00 13:30:26 Pam Mccormack 46738.1.1 ity of 3.412.2.7 [place] .3.604292 MD [facility] 2023-03-01 2023-03-01 Documentat [place], 1.2.840.1 [id number] Univers 00:00:00 00:00:00 ion Nadia 30867.1.1 ity of 3.412.2.7 [place] .3.651109 MD [facility] 2023-03-01 2023-03-01 Orders [place], 1.2.840.1 [id number] Univers 00:00:00 00:00:00 Only Nadia 29666.1.1 ity of 3.412.2.7 [place] .3.571551 MD [facility] 2023-02-27 2023-02-27 Lab Ronald Banda 1.2.840.1 [id number] Univers 00:00:00 00:00:00 Israel Atkinson 76615.1.1 ity of n 3.412.2.7 [place] .3.411360 MD [facility] 2023-02-27 2023-02-27 Orders [place], 1.2.840.1 [id number] Univers 00:00:00 00:00:00 Only Nadia 56532.1.1 ity of 3.412.2.7 [place] .3.043198 MD [facility] 2023-02-26 2023-02-26 Orders Sara, 1.2.840.1 [id number] Univers 00:00:00 00:00:00 Only Porsche Dillard 59854.1.1 it y of 3.412.2.7 [place] .3.361085 MD [facility] 2023-02-25 2023-02-25 Ancillary Sara, 1.2.840.1 [id number] [id number] Univers 22:55:00 23:00:00 Procedure Porsche Dillard 39042.1.1 ity of 3.412.2.7 [place] .3.111630 MD [facility] 2023-02-25 2023-02-25 Ancillary Sara, 1.2.840.1 [id number] [facility] 22:50:00 22:55:00 Procedure Porsche Dillard 91214.1.1 ity of 3.412.2.7 [place] .3.181031 .8 [facility] 2023-02-25 2023-02-25 Ancillary Sara, 1.2.840.1 [id number] [id number] [facility] 22:45:00 22:50:00 Procedure Porsche Dillard 59669.1.1 ity of 3.412.2.7 [place] .3.044795 .8 [facility] 2023-02-25 2023-02-25 Outpatient MARIO RUIZ MDA MDA [id number] MD 22:45:50 22:45:50 PORSCHE fuentes 2023-02-25 2023-02-25 Outpatient MARIO RUIZ MDA MDA [id number] MD 22:45:44 22:45:44 PORSCHE fuentes 2023-02-25 2023-02-25 Outpatient MARIO MIRANDAANILIDNY MDA [id number] MD 22:45:38 22:45:38 PORSCHE fuentes 2023-02-25 2023-02-25 Outpatient MARIO RUIZ MDA MDA [id number] MD 13:52:32 14:36:59 PORSCHE fuentes 2023-02-25 2023-02-25 Follow-Up Sara, 1.2.840.1 [id number] [facility] 13:00:00 14:36:59 Porsche Dillard 68612.1.1 it y of 3.412.2.7 [place] .3.125510 .8 [facility] 2023-02-25 2023-02-25 Nadia Elam 1.2.840.1 [id number] [facility] 10:45:00 14:16:11 Cristal Martell 27997.1.1 ity of 3.412.2.7 [place] .3.583216 .8 [facility] 2023-02-25 2023-02-25 Outpatient MARIO BOWDEN MDA MDA [id number] MD 10:32:24 14:16:11 NADIA Toddgreg fuentes 2023-02-25 2023-02-25 [facility] [place], 1.2.840.1 [id number] Univers 00:00:00 00:00:00 Only Nadia 72047.1.1 ity of 3.412.2.7 [place] .3.648596 [facility] 2023-02-25 2023-02-25 Travel 1.2.840.1 1.2.870.357 [id number] [id number] Univers 00:00:00 00:00:00 02468.1.1 350.1.13.41 ity of 3.412.2.7 [place]7.3.698 [place] .3.6738[place] 084.8 MD [facility] 2023-02-24 2023-02-24 Outpatient DENNISE, LINDY [facility] [id number] 07:00:00 23:59:00 NADIA fuentes 2023-02-24 2023-02-24 [facility] Nadia Bowden 1.2.840.1 [id number] Univers 07:00:00 23:59:00 Encounter Deisy Smith 13885.1.1 ity of 3.412.2.7 [place] .3.443510 MD [facility] 2023-02-24 2023-02-24 Travel 1.2.840.1 1.2.879.432 [id number] Univers 00:00:00 00:00:00 72447.1.1 350.1.13.41 ity of 3.412.2.7 2.[place]7.3.698 [place] .3.204777 084.8 MD [facility] 2023-02-23 2023-02-23 [facility] Porsche Ruiz. 1.2.840.1 [id number] Univers 14:26:42 23:59:00 Encounter Stiven Quintero 19199.1.1 ity of 3.412.2.7 [place] .3.807553 MD .8 [facility] 2023-02-23 2023-02-23 Outpatient LINDY RUIZ MDA [id number] MS 14:26:42 23:59:00 PORSCHE fuentes 2023-02-23 2023-02-23 Travel 1.2.840.1 1.2.325.607 [id number] Univers 00:00:00 00:00:00 03577.1.1 350.1.13.41 ity of 3.412.2.7 2.[place].7.3.698 [place] .3.180316 084.8 MD [facility] 2023-02-22 2023-02-22 Porsche Gonzalez.2.840.1 [id number] [facility] [place] [facility] 14:51:27 23:59:00 Rita Day 36677.1.1 ity of 3.412.2.7 [place] .3.726226 MD [facility] 2023-02-22 2023-02-22 Outpatient MARIO RUIZ MDA MDA [id number] 14:51:27 23:59:00 PORSCHE fuentse 2023-02-22 2023-02-22 Travel 1.2.840.1 1.2.967.122 [id number] [id number] [facility] [place] [facility] 00:00:00 00:00:00 76506.1.1 350.1.13.41 ity of 3.412.2.7 2.[place].7.3.698 [place] .3.461916 084.8 MD [facility] 2023-02-21 2023-02-21 [facility] Porsche Ruiz 1.2.840.1 [id number] [facility] 17:00:00 20:19:10 Stephanie Bearden 70759.1.1 ity of 3.412.2.7 [place] .3.081355 MD [facility] 2023-02-21 2023-02-21 Outpatient MARIO RUIZ MDA MDA [id number] MD 14:10:28 20:19:10 PORSCHE fuentes 2023-02-21 2023-02-21 Follow-Up Sara, 1.2.840.1 [id number] Univers 12:40:00 13:10:30 Porsche Dillard 09085.1.1 it y of 3.412.2.7 [place] .3.290535 MD [facility] 2023-02-21 2023-02-21 Outpatient EL SARA, [facility] [id number] 11:43:43 13:10:30 PORSCHE fuentes 2023-02-21 2023-02-21 Ancillary [place], 1.2.840.1 [id number] [id number] Univers 11:15:00 11:30:00 Procedure Nadia 80044.1.1 it y of 3.412.2.7 [place] .3.420642 MD [facility] 2023-02-21 2023-02-21 Outpatient MARIO BOWDEN [facility] [id number] 10:44:49 10:44:49 NADIA fuentes 2023-02-21 2023-02-21 Orders [place], 1.2.840.1 [id number] Univers 00:00:00 00:00:00 Only Nadia 05914.1.1 ity of 3.412.2.7 [place] .3.199715 MD [facility] 2023-02-21 2023-02-21 Orders [place], 1.2.840.1 [id number] Univers 00:00:00 00:00:00 Only Autumn 33935.1.1 ity of 3.412.2.7 [place] .3.392144 MD [facility] 2023-02-21 2023-02-21 Travel 1.2.840.1 1.2.631.481 0222 [id number] Univers 00:00:00 00:00:00 67312.1.1 350.1.13.41 ity of 3.412.2.7 2.[place].7.3.698 [place] .3.976457 084.8 MD [facility] 2023-02-20 2023-02-20 Outpatient MARIO BOWDEN MDA MDA [id number] 10:11:28 10:11:38 NADIA Todd jc fuentes 2023-02-20 2023-02-20 Nutrition Ndaia Bowden 1.2.840.1 [id number] [facility] 09:30:00 10:11:38 Pam Mccormack 66921.1.1 ity of 3.412.2.7 [place] .3.586308 MD Isidro8 [facility] 2023-02-20 2023-02-20 Orders Dennise, 1.2.840.1 [id number] [facility] 00:00:00 00:00:00 Only Nadia 96071.1.1 ity of 3.412.2.7 [place] .3.104538 MD Isidro8 [facility] 2023-02-20 2023-02-20 Telephone Luis Enrique, 1.2.840.1 [id number] [facility] 00:00:00 00:00:00 Jessica Reynolds 40386.1.1 ity of 3.412.2.7 [place] .3.928735 MD Isidro8 [facility] 2023-02-18 2023-02-18 [facility] 1.2.840.1 [id number] [facility] 08:45:00 13:28:00 Sissy Rivas 61662.1.1 it y of 3.412.2.7 [place] .3.048568 MD [facility] 2023-02-18 2023-02-18 Outpatient [facility] LINDY Melisa/Hep/Nu [id number] 08:45:00 13:28:00 , SISSY [facility] 2023-02-18 2023-02-18 Anesthesia Radha 1.2.840.1 [id number] [facility] 11:56:00 12:32:00 Event Tahir 39718.1.1 ity of 3.412.2.7 [place] .3.645597 MD Isidro8 [facility] 2023-02-18 2023-02-18 Surgery Thirumurthi 1.2.840.1 [id number] Univers 10:15:00 10:55:00 , Sissy 46266.1.1 ity of 3.412.2.7 [place] .3.554516 MD [facility] 2023-02-18 2023-02-18 Travel 1.2.840.1 1.2.109.544 8063 [id number] Univers 00:00:00 00:00:00 63674.1.1 350.1.13.41 ity of 3.412.2.7 [place]7.3.698 [place] .3.983974 084.8 MD [facility] 2023-02-15 2023-02-15 DAVID Ruiz 1.2.840.1 [id number] Univers 12:00:00 12:30:00 Appointcesar Dillard 61239.1.1 ity of ts 3.412.2.7 [place] .3.137178 MD [facility] 2023-02-15 2023-02-15 Outpatient MARIO RUIZ MDA MDA [id number] 07:17:05 07:17:05 PORSCHE fuentes 2023-02-14 2023-02-14 Anesthesia Avinash, 1.2.840.1 [id number] Univers 23:59:59 23:59:59 Event Sonia Braun 01392.1.1 ity of 3.412.2.7 [place] .3.686827 MD [facility] 2023-02-14 2023-02-14 Hospital Dennise, 1.2.840.1 [id number] Univers 11:27:04 23:59:00 Encounter Nadia 07896.1.1 it y of 3.412.2.7 [place] .3.128290 MD [facility] 2023-02-14 2023-02-14 Outpatient MARIO BOWDEN MDA MDA [id number] MD 11:27:04 23:59:00 NADIA fuentes 2023-02-14 2023-02-14 Ancillary Sara, 1.2.840.1 [id number] [id number] [facility] 20:25:00 20:30:00 Procedure Porsche ASanna 74333.1.1 ity of 3.412.2.7 [place] .3.960569 MD Isidro8 [facility] 2023-02-14 2023-02-14 Ancillary Sara, 1.2.840.1 [id number] 1103 [id number] [facility] 20:20:00 20:25:00 Procedure Porsche A. 71885.1.1 ity of 3.412.2.7 [place] .3.072575 MD Isidro8 [facility] 2023-02-14 2023-02-14 Ancillary Sara, 1.2.840.1 [id number] 1103 [id number] [facility] 20:15:00 20:20:00 Procedure Porsche ASanna 01294.1.1 ity of 3.412.2.7 [place] .3.034920 MD Isidro8 [facility] 2023-02-14 2023-02-14 Ancillary Sara, 1.2.840.1 [id number] 1103 [id number] Univers 20:10:00 20:15:00 Procedure Porsche A. 07187.1.1 ity of 3.412.2.7 [place] .3.378258 MD Isidro8 [facility] 2023-02-14 2023-02-14 Ancillary Sara, 1.2.840.1 [id number] 1103 [id number] Univers 20:05:00 20:10:00 Procedure Porsche ASanna 45825.1.1 ity of 3.412.2.7 [place] .3.004990 MD Isidro8 [facility] 2023-02-14 2023-02-14 Ancillary Sara, 1.2.840.1 [id number] 1103 [id number] [facility] 20:00:00 20:05:00 Procedure Porsche ASanna 43845.1.1 ity of 3.412.2.7 [place] .3.211875 MD Isidro8 [facility] 2023-02-14 2023-02-14 Office Sara, 1.2.840.1 [id number] Univers 09:40:00 11:17:21 Visit Porsche Dillard 68524.1.1 it y of 3.412.2.7 [place] .3.598038 MD [facility] 2023-02-14 2023-02-14 Outpatient MARIO RUIZ MDA MDA [id number] 09:02:20 11:17:21 PORSCHE fuentes 2023-02-14 2023-02-14 Outpatient MARIO RUIZ MDA MDA [id number] 11:07:03 11:07:03 PORSCHE fuentes 2023-02-14 2023-02-14 Outpatient MARIO RUIZ MDA MDA [id number] 11:06:59 11:06:59 PORSCHE fuentes 2023-02-14 2023-02-14 Outpatient MARIO RUIZ MDA MDA [id number] 11:06:55 11:06:55 PORSCHE fuentes 2023-02-14 2023-02-14 Outpatient MARIO RUIZ MDA MDA [id number] 11:06:51 11:06:51 PORSCHE fuentes 2023-02-14 2023-02-14 Outpatient MARIO RUIZ MDA MDA [id number] 11:06:47 11:06:47 PORSCHE fuentes 2023-02-14 2023-02-14 Outpatient MARIO RUIZ MDA MDA [id number] 11:06:44 11:06:44 PORSCHE fuentes 2023-02-14 2023-02-14 Documentat Isael, 1.2.840.1 [id number] Univers 00:00:00 00:00:00 ion Harley Cruz 92496.1.1 ity of 3.412.2.7 [place] .3.612648 MD [facility] 2023-02-14 2023-02-14 Prep for Jarad, 1.2.840.1 [id number] Univers 00:00:00 00:00:00 Surgery Shea 02623.1.1 ity of 3.412.2.7 [place] .3.945436 MD Isidro8 [facility] 2023-02-14 2023-02-14 Travel 1.2.840.1 1.2.268.590 4485 [id number] Univers 00:00:00 00:00:00 29344.1.1 350.1.13.41 ity of 3.412.2.7 2.[place].7.3.698 [place] .3.871648 084.8 MD [facility] 2023-02-12 2023-02-12 Lab Ronald Banda 1.2.840.1 [id number] Univers 00:00:00 00:00:00 Israel Atkinson 66060.1.1 ity of n 3.412.2.7 [place] .3.511836 MD [facility] 2023-02-11 2023-02-11 Outpatient EL MDA MDA [id number] MD 09:29:10 09:29:16 [facility] 2023-02-11 2023-02-11 NPR 1.2.840.1 [id number] Univers 09:00:00 09:29:16 34859.1.1 ity of 3.412.2.7 [place] .3.931396 MD [facility] 2023-02-11 2023-02-11 Travel 1.2.840.1 1.2.336.338 6710 [id number] Univers 00:00:00 00:00:00 19693.1.1 350.1.13.41 ity of 3.412.2.7 2.[place]7.3.698 [place] .3.373529 084.8 MD [facility] 2023-02-06 2023-02-06 Orders [place], 1.2.840.1 [id number] Univers 00:00:00 00:00:00 Only Nadia 95495.1.1 ity of 3.412.2.7 [place] .3.481427 MD [facility] 2023-02-05 2023-02-05 Travel 1.2.840.1 1.2.884.215 7935 [id number] Univers 00:00:00 00:00:00 55303.1.1 350.1.13.41 ity of 3.412.2.7 2.[place].7.3.698 [place] .3.127351 084.8 .8 [facility] 2023-02-04 2023-02-04 Travel 1.2.840.1 1.2.109.764 4679 [id number] Univers 00:00:00 00:00:00 65280.1.1 350.1.13.41 ity of 3.412.2.7 2.2.7.3.698 [place] .3.032552 084.8 .8 [facility] 2022-06-24 2022-06-24 Letter MONICA Smiley 1.2.840.114 [id number] Univers 00:00:00 00:00:00 (Out) Torie GERMAIN 350.1.13.10 it y of [facility] 4.2.7.2.686 Jamin as [id number] [address] 2022-06-24 2022-06-24 Telephone [facility] 1.2.538.567 [id number] Univers 00:00:00 00:00:00 [facility] 350.1.13.10 it y of [place] 4.2.7.2.686 Jamin as CRISTEL?BLEA [id number] [address] MEDICAL OFFICE [facility] 2022-06-23 2022-06-23 Urgent Stephanie Yañez [facility] 1.2.840.114 9 [id number] Univers 10:00:00 10:19:37 Care Unknown, Attending HEALTH 350.1.13.10 ity of [place] 4.2.7.2.686 Jamin as CRISTEL?BLEA [id number] [address] OFFICE BUILDING 2022-06-23 2022-06-23 [id number] Univers 10:00:00 10:19:37 [facility] Test Description Test Time Test Comments Results Result Comments Source Zabrina monois 2023-09-10 20:31:55 Test Item Value Reference Range Interpretation Comme nts Scan Result (test code = 1015557) see scanned report [facility] [id number] 23:55:00 Test Item Value Reference Range Interpretation Comments CROSSMATCH (test code = 2264) COMPATIBLE Unit ABO (test code = A Pos 6181352) UNIT NUMBER (test code = [id number] 934-0) Status (test code = 6661925) [place]_TIMEINCHART Blood Bank Product (test code RED BLOOD CELLS = 2263) PRODUCT CODE (test code = L7201H56 933-2) [facility](CELLAVISION MANUAL DIFF)2023-09-04 01:59:09 Test Item Value Reference Range Interpretation Comments NEUTROPHILS - REL 25 % (CELLAVISION)(BEAKER) (test code = 2816) LYMPHOCYTES - REL 48 % (CELLAVISION)(BEAKER) (test code = 2817) MONOCYTES - REL 19 % (CELLAVISION)(BEAKER) (test code = 2818) EOSINOPHILS - REL 4 % (CELLAVISION)(BEAKER) (test code = 2819) MYELOCYTES - REL 1 % 0-0 H (CELLAVISION)(BEAKER) (test code = 2822) BANDS - REL (CELLAVISION)(BEAKER) 1 % 0-10 (test code = 2826) ATYPICAL LYMPHOCYTES - REL 1 % 0-0 H (CELLAVISION)(BEAKER) (test code = 2829) NEUTROPHILS - ABS 0.35 K/ul 1.78-5.38 L (CELLAVISION)(BEAKER) (test code = 2830) LYMPHOCYTES - ABS 0.67 K/ul 1.32-3.57 L (CELLAVISION)(BEAKER) (test code = 2831) MONOCYTES - ABS 0.27 K/uL 0.30-0.82 L (CELLAVISION)(BEAKER) (test code = 2832) EOSINOPHILS - ABS 0.06 K/uL 0.04-0.54 (CELLAVISION)(BEAKER) (test code = 2834) MYELOCYTES-ABS 0.01 K/uL 0.00-0.00 H (CELLAVISION)(BEAKER) (test code = 2837) BANDS - ABS (CELLAVISION)(BEAKER) 0.01 K/uL 0.00-0.80 (test code = 2840) ATYPICAL LYMPHOCYTES - ABS 0.01 K/uL 0.00-0.00 H (CELLAVISION)(BEAKER) (test code = 2858) TOTAL COUNTED (BEAKER) (test code = 100 1351) SMUDGE CELLS (BEAKER) (test code = Present 1371) GIANT PLATELETS (BEAKER) (test code Present = 313) POLYCHROMATOPHILLIC RBCS(BEAKER) 1+ few (test code = 478) ANISOCYTOSIS (BEAKER) (test code = 1+ few 961) MICROCYTES (BEAKER) (test code = 1+ few 965) POIKILOCYTES (BEAKER) (test code = 1+ few 966) OVALOCYTES (BEAKER) (test code = 1+ few 477) JACKI CELLS (BEAKER) (test code = 1+ few 474) ARTIFACT (CELLAVISION)(BEAKER) Present (test code = 3432) PLATELET CONCENTRATION Decreased (CELLAVISION)(BEAKER) (test code = 3438) [employer]profit Financial Controller ID - Izabella Al comments: Slide comments:CBC W/PLT COUNT & AUTO [id number] 01:59:08 Test Item Value Reference Range Interpretation Comments WHITE BLOOD CELL COUNT (BEAKER) 1.4 K/ L 3.5-10.5 L (test code = 775) RED BLOOD CELL COUNT (BEAKER) 2.83 M/ L 4.63-6.08 L (test code = 761) HEMOGLOBIN (BEAKER) (test code = 8.1 GM/DL 13.7-17.5 L 410) HEMATOCRIT (BEAKER) (test code = 24.3 % 40.1-51.0 L 411) MEAN CORPUSCULAR VOLUME (BEAKER) 86 fL 79-92 (test code = 753) MEAN CORPUSCULAR HEMOGLOBIN 28.6 pg 25.7-32.2 (BEAKER) (test code = 751) MEAN CORPUSCULAR HEMOGLOBIN CONC 33.3 GM/DL 32.3-36.5 (BEAKER) (test code = 752) RED CELL DISTRIBUTION WIDTH 19.3 % 11.6-14.4 H (BEAKER) (test code = 412) PLATELET COUNT (BEAKER) (test code 77 K/CU MM 150-450 L = 756) MEAN PLATELET VOLUME (BEAKER) 9.7 fL 9.4-12.4 (test code = 754) NUCLEATED RED BLOOD CELLS (BEAKER) 0 /100 WBC 0-0 (test code = 413) BASIC METABOLIC [id number] 01:49:59 Test Item Value Reference Range Interpretation Comments SODIUM (BEAKER) 135 meq/L 136-145 L (test code = 381) POTASSIUM 3.6 meq/L 3.5-5.1 (BEAKER) (test code = 379) CHLORIDE (BEAKER) 104 meq/L 98-107 (test code = 382) CO2 (BEAKER) 26 meq/L 22-29 (test code = 355) BLOOD UREA 19 mg/dL 7-21 NITROGEN (BEAKER) (test code = 354) CREATININE 0.71 mg/dL 0.57-1.25 (BEAKER) (test code = 358) GLUCOSE RANDOM 106 mg/dL 70-105 H (BEAKER) (test code = 652) CALCIUM (BEAKER) 7.9 mg/dL 8.4-10.2 L (test code = 697) EGFR (BEAKER) 98 Interpretatio n of eGFR (test code = mL/min/1.73 values Stage De scription 1092) sq m Result G1 Nicole l or high >=90 G2 Mildly decreased 60-89 G3a Mildl y to moderately 45-5 9 G3b Moderately to s everely 30-44 G4 Severl y decreased 15-29 G5 Kidney failure <15Reported eGF R is based on the CKD-EPI 2020 equation that d oes not use a race coefficientEsti mated GFR is not as accur ate as Creatinine Hina [place] in predicting glom erular filtration rate . Estimated GFR is not appl icable for dialysis patien ts Nonprofit Financial Controller ID - BSPOC-Glucose [id number] 20:23:01 Test Item Value Reference Range Interpretation Comments POC-Glucose Meter (test 117 mg/dL 70-110 H : No la nena RN/MD: code = 1538) TESTED AT [facility] [address] [facility] [place], [address]: Nonprofit Financial Controller/Techni keith ID = [id number] for Hayde [facility]ph[facility] Lab Interpretation (test Abnormal code = 90360-4) [facility] [id number] 20:23:01 Test Item Value Reference Range Interpretation Comments POC-GLUCOSE METER 117 mg/dL 70-110 H : Notified RN/MD: ([facility]) (test code = TESTED AT [facility] [address] 1538) [facility], [address]: Nonprofit Financial Controller/Techni keith ID = [id number] for Rosa travis Hayde POCT-GLUCOSE [id number] 17:05:21 Test Item Value Reference Range Interpretation Comments POC-GLUCOSE METER 115 mg/dL 70-110 H : [facility] [address] ([facility]) (test code = [facility], 153) [id number]: Nonprofit Financial Controller/Techni keith ID = [id number] for Jr Petit POCT-GLUCOSE [id number] 11:52:25 Test Item Value Reference Range Interpretation Comments POC-GLUCOSE METER 120 mg/dL 70-110 H : TESTED A T [facility] [address] ([facility]) (test code = [facility], 153) [address]: Nonprofit Financial Controller/Techni keith ID = [id number] for Wi lliams, Areiona POCT-GLUCOSE [id number] 08:59:41 Test Item Value Reference Range Interpretation Comments POC-GLUCOSE METER 105 mg/dL 70-110 : TESTED A T [facility] [address] ([facility]) (test code = [facility], 153) [id number]: Nonprofit Financial Controller/Techni keith ID = [id number] for Wi lliams, Areiona CBC W/PLT COUNT & AUTO [id number] 07:24:59 Test Item Value Reference Range Interpretation Comments WHITE BLOOD CELL COUNT (BEAKER) 0.9 K/ L 3.5-10.5 LL (test code = 775) RED BLOOD CELL COUNT (BEAKER) 2.29 M/ L 4.63-6.08 L (test code = 761) HEMOGLOBIN (BEAKER) (test code = 6.9 GM/DL 13.7-17.5 L 410) HEMATOCRIT (BEAKER) (test code = 20.1 % 40.1-51.0 L 411) MEAN CORPUSCULAR VOLUME (BEAKER) 88 fL 79-92 (test code = 753) MEAN CORPUSCULAR HEMOGLOBIN 30.1 pg 25.7-32.2 (BEAKER) (test code = 751) MEAN CORPUSCULAR HEMOGLOBIN CONC 34.3 GM/DL 32.3-36.5 (BEAKER) (test code = 752) RED CELL DISTRIBUTION WIDTH 19.0 % 11.6-14.4 H (BEAKER) (test code = 412) PLATELET COUNT (BEAKER) (test code 68 K/CU MM 150-450 L = 756) MEAN PLATELET VOLUME (BEAKER) 10.5 fL 9.4-12.4 (test code = 754) NUCLEATED RED BLOOD CELLS (BEAKER) 0 /100 WBC 0-0 (test code = 413) (CELLAVISION MANUAL DIFF)2023-09-03 07:24:59 Test Item Value Reference Range Interpretation Comments NEUTROPHILS - REL 34 % (CELLAVISION)(BEAKER) (test code = 2816) LYMPHOCYTES - REL 47 % (CELLAVISION)(BEAKER) (test code = 2817) MONOCYTES - REL 11 % (CELLAVISION)(BEAKER) (test code = 2818) EOSINOPHILS - REL 4 % (CELLAVISION)(BEAKER) (test code = 2819) BASOPHILS - REL 2 % (CELLAVISION)(BEAKER) (test code = 2820) BANDS - REL (CELLAVISION)(BEAKER) 1 % 0-10 (test code = 2826) ATYPICAL LYMPHOCYTES - REL 1 % 0-0 H (CELLAVISION)(BEAKER) (test code = 2829) NEUTROPHILS - ABS 0.31 K/ul 1.78-5.38 L (CELLAVISION)(BEAKER) (test code = 2830) LYMPHOCYTES - ABS 0.42 K/ul 1.32-3.57 L (CELLAVISION)(BEAKER) (test code = 2831) MONOCYTES - ABS 0.10 K/uL 0.30-0.82 L (CELLAVISION)(BEAKER) (test code = 2832) EOSINOPHILS - ABS 0.04 K/uL 0.04-0.54 (CELLAVISION)(BEAKER) (test code = 2834) BASOPHILS - ABS 0.02 K/uL 0.01-0.08 (CELLAVISION)(BEAKER) (test code = 2835) BANDS - ABS (CELLAVISION)(BEAKER) 0.01 K/uL 0.00-0.80 (test code = 2840) ATYPICAL LYMPHOCYTES - ABS 0.01 K/uL 0.00-0.00 H (CELLAVISION)(BEAKER) (test code = 2858) TOTAL COUNTED (BEAKER) (test code 100 = 1351) MANUAL NRBC PER 100 CELLS (BEAKER) 3 /100 WBC 0-0 H (test code = 1353) WBC MORPHOLOGY (BEAKER) (test code Normal = 487) CLUMPED PLATELETS (BEAKER) (test Present code = 436) GIANT PLATELETS (BEAKER) (test Present code = 313) POLYCHROMATOPHILLIC RBCS(BEAKER) 1+ few (test code = 478) ANISOCYTOSIS (BEAKER) (test code = 1+ few 961) ARTIFACT (CELLAVISION)(BEAKER) Present (test code = 3432) PLATELET CONCENTRATION Decreased (CELLAVISION)(BEAKER) (test code = 3438) Nonprofit Financial Controller ID - [id number] ID - alvarez Mera comments: Slide comments:BASIC METABOLIC [id number] 07:10:38 Test Item Value Reference Range Interpretation Comments SODIUM (BEAKER) 136 meq/L 136-145 (test code = 381) POTASSIUM 3.5 meq/L 3.5-5.1 (BEAKER) (test code = 379) CHLORIDE (BEAKER) 105 meq/L 98-107 (test code = 382) CO2 (BEAKER) 25 meq/L 22-29 (test code = 355) BLOOD UREA 15 mg/dL 7-21 NITROGEN (BEAKER) (test code = 354) CREATININE 0.64 mg/dL 0.57-1.25 (BEAKER) (test code = 358) GLUCOSE RANDOM 104 mg/dL 70-105 (BEAKER) (test code = 652) CALCIUM (BEAKER) 7.8 mg/dL 8.4-10.2 L (test code = 697) EGFR (BEAKER) 100 Interpretatio n of eGFR (test code = mL/min/1.73 values Stage De scription 1092) sq m Result G1 Nicole l or high >=90 G2 Mildly decreased 60-89 G3a Mildl y to moderately 45-5 9 G3b Moderately to s everely 30-44 G4 Severl y decreased 15-29 G5 Kidney failure <15Reported eGF R is based on the CKD-EPI 2020 equation that d oes not use a race coefficientEsti mated GFR is not as accur ate as Creatinine Hina [place] in predicting glom erular filtration rate . Estimated GFR is not appl icable for dialysis patien ts Nonprofit Financial Controller ID - JSPOCT-GLUCOSE [id number] 21:43:28 Test Item Value Reference Range Interpretation Comments POC-GLUCOSE METER 110 mg/dL 70-110 : TESTED A T [facility] ([employer]) (test code = [facility], 1538) 59251: Nonprofit Financial Controller/Techni keith ID = [id number] for Yamel Enamorado POCT-GLUCOSE [id number] 16:07:32 Test Item Value Reference Range Interpretation Comments POC-GLUCOSE METER 110 mg/dL 70-110 : TESTED A T [facility] (BEAKER) (test code = [facility], 1538) 69035: Nonprofit Financial Controller/Techni keith ID = [id number] for Sukhdeep Kennedy VITAMIN [id number] 13:57:39 Test Item Value Reference Range Interpretation Comments VITAMIN B12 ([employer]) (test code = 392 pg/mL 213-816 774) Nonprofit Financial Controller ID - JSRETICULOCYTE [id number] 13:24:08 Test Item Value Reference Range Interpretation Comments RETICULOCYTE COUNT PCT ([employer]) (test 7.3 % 0.5-1.8 H code = 575) Nonprofit Financial Controller ID - [id number] ID - [id number]-GLUCOSE [id number] 11:51:37 Test Item Value Reference Range Interpretation Comments POC-GLUCOSE METER 95 mg/dL 70-110 : TESTED A T [facility] (BEAKER) (test code = [facility], 1538) 27717: Nonprofit Financial Controller/Techni keith ID = [id number] for Sukhdeep Chawla POCT-GLUCOSE [id number] 07:45:16 Test Item Value Reference Range Interpretation Comments POC-GLUCOSE METER 105 mg/dL 70-110 : TESTED A T [facility] (BEAKER) (test code = [facility], 1538) 74966: Nonprofit Financial Controller/Techni keith ID = [id number] for Sukhdeep Kennedy (CELLAVISION MANUAL DIFF)2023-09-02 07:40:24 Test Item Value Reference Range Interpretation Comments NEUTROPHILS - REL 35 % (CELLAVISION)(BEAKER) (test code = 2816) LYMPHOCYTES - REL 51 % (CELLAVISION)(BEAKER) (test code = 2817) MONOCYTES - REL 8 % (CELLAVISION)(BEAKER) (test code = 2818) EOSINOPHILS - REL 3 % (CELLAVISION)(BEAKER) (test code = 2819) BASOPHILS - REL 1 % (CELLAVISION)(BEAKER) (test code = 2820) BANDS - REL (CELLAVISION)(BEAKER) 1 % 0-10 (test code = 2826) ATYPICAL LYMPHOCYTES - REL 1 % 0-0 H (CELLAVISION)(BEAKER) (test code = 2829) NEUTROPHILS - ABS 0.28 K/ul 1.78-5.38 L (CELLAVISION)(BEAKER) (test code = 2830) LYMPHOCYTES - ABS 0.41 K/ul 1.32-3.57 L (CELLAVISION)(BEAKER) (test code = 2831) MONOCYTES - ABS 0.06 K/uL 0.30-0.82 L (CELLAVISION)(BEAKER) (test code = 2832) EOSINOPHILS - ABS 0.02 K/uL 0.04-0.54 L (CELLAVISION)(BEAKER) (test code = 2834) BASOPHILS - ABS 0.01 K/uL 0.01-0.08 (CELLAVISION)(BEAKER) (test code = 2835) BANDS - ABS (CELLAVISION)(BEAKER) 0.01 K/uL 0.00-0.80 (test code = 2840) ATYPICAL LYMPHOCYTES - ABS 0.01 K/uL 0.00-0.00 H (CELLAVISION)(BEAKER) (test code = 2858) TOTAL COUNTED (BEAKER) (test code 100 = 1351) MANUAL NRBC PER 100 CELLS (BEAKER) 3 /100 WBC 0-0 H (test code = 1353) WBC MORPHOLOGY (BEAKER) (test code Normal = 487) GIANT PLATELETS (BEAKER) (test Present code = 313) POLYCHROMATOPHILLIC RBCS(BEAKER) 1+ few (test code = 478) ANISOCYTOSIS (BEAKER) (test code = 1+ few 961) MICROCYTES (BEAKER) (test code = 1+ few 965) ARTIFACT (CELLAVISION)(BEAKER) Present (test code = 3432) PLATELET CONCENTRATION Decreased (CELLAVISION)(BEAKER) (test code = 3438) Nonprofit Financial Controller ID - [id number] ID - alvarez Ede comments: Slide comments:CBC W/PLT COUNT & AUTO [id number] 07:40:23 Test Item Value Reference Range Interpretation Comments WHITE BLOOD CELL COUNT (BEAKER) 0.8 K/ L 3.5-10.5 LL (test code = 775) RED BLOOD CELL COUNT (BEAKER) 2.51 M/ L 4.63-6.08 L (test code = 761) HEMOGLOBIN (BEAKER) (test code = 7.4 GM/DL 13.7-17.5 L 410) HEMATOCRIT (BEAKER) (test code = 22.3 % 40.1-51.0 L 411) MEAN CORPUSCULAR VOLUME (BEAKER) 89 fL 79-92 (test code = 753) MEAN CORPUSCULAR HEMOGLOBIN 29.5 pg 25.7-32.2 (BEAKER) (test code = 751) MEAN CORPUSCULAR HEMOGLOBIN CONC 33.2 GM/DL 32.3-36.5 (BEAKER) (test code = 752) RED CELL DISTRIBUTION WIDTH 18.8 % 11.6-14.4 H (BEAKER) (test code = 412) PLATELET COUNT (BEAKER) (test code 47 K/CU MM 150-450 L = 756) MEAN PLATELET VOLUME (BEAKER) 10.7 fL 9.4-12.4 (test code = 754) NUCLEATED RED BLOOD CELLS (BEAKER) 0 /100 WBC 0-0 (test code = 413) BASIC METABOLIC [id number] 06:42:07 Test Item Value Reference Range Interpretation Comments SODIUM (BEAKER) 135 meq/L 136-145 L (test code = 381) POTASSIUM 3.0 meq/L 3.5-5.1 L (BEAKER) (test code = 379) CHLORIDE (BEAKER) 105 meq/L 98-107 (test code = 382) CO2 (BEAKER) 23 meq/L 22-29 (test code = 355) BLOOD UREA 16 mg/dL 7-21 NITROGEN (BEAKER) (test code = 354) CREATININE 0.61 mg/dL 0.57-1.25 (BEAKER) (test code = 358) GLUCOSE RANDOM 102 mg/dL 70-105 (BEAKER) (test code = 652) CALCIUM (BEAKER) 7.7 mg/dL 8.4-10.2 L (test code = 697) EGFR (BEAKER) 101 Interpretatio n of eGFR (test code = mL/min/1.73 values Stage De scription 1092) sq m Result G1 Nicole l or high >=90 G2 Mildly decreased 60-89 G3a Mildl y to moderately 45-5 9 G3b Moderately to s everely 30-44 G4 Severl y decreased 15-29 G5 Kidney failure <15Reported eGF R is based on the CKD-EPI 2020 equation that d oes not use a race coefficientEsti mated GFR is not as accur ate as Creatinine Hina yoly in predicting glom erular filtration rate . Estimated GFR is not appl icable for dialysis patien ts Nonprofit Financial Controller ID - JOHN WPOCT-GLUCOSE [id number] 20:40:41 Test Item Value Reference Range Interpretation Comments POC-GLUCOSE METER 134 mg/dL 70-110 H : TESTED A T [facility] (BEAKER) (test code = [facility] [place], 1538) 32913: Nonprofit Financial Controller/Techni keith ID = [id number] for An Yamel driver BASIC METABOLIC [id number] 06:10:16 Test Item Value Reference Range Interpretation Comments SODIUM (BEAKER) 136 meq/L 136-145 (test code = 381) POTASSIUM 3.3 meq/L 3.5-5.1 L (BEAKER) (test code = 379) CHLORIDE (BEAKER) 107 meq/L 98-107 (test code = 382) CO2 (BEAKER) 23 meq/L 22-29 (test code = 355) BLOOD UREA 15 mg/dL 7-21 NITROGEN (BEAKER) (test code = 354) CREATININE 0.61 mg/dL 0.57-1.25 (BEAKER) (test code = 358) GLUCOSE RANDOM 107 mg/dL 70-105 H (BEAKER) (test code = 652) CALCIUM (BEAKER) 7.7 mg/dL 8.4-10.2 L (test code = 697) EGFR (BEAKER) 101 Interpretatio n of eGFR (test code = mL/min/1.73 values Stage De scription 1092) sq m Result G1 Nicole l or high >=90 G2 Mildly decreased 60-89 G3a Mildl y to moderately 45-5 9 G3b Moderately to s everely 30-44 G4 Severl y decreased 15-29 G5 Kidney failure <15Reported eGF R is based on the CKD-EPI 2020 equation that d oes not use a race coefficientEsti mated GFR is not as accur ate as Creatinine Hina yoly in predicting glom erular filtration rate . Estimated GFR is not appl icable for dialysis patien ts Nonprofit Financial Controller ID - ADMINCBC (HEMOGRAM ONLY)2023-09-01 05:44:42 Test Item Value Reference Range Interpretation Comments WHITE BLOOD CELL COUNT (BEAKER) 1.0 K/ L 3.5-10.5 LL (test code = 775) RED BLOOD CELL COUNT (BEAKER) 2.57 M/ L 4.63-6.08 L (test code = 761) HEMOGLOBIN (BEAKER) (test code = 7.6 GM/DL 13.7-17.5 L 410) HEMATOCRIT (BEAKER) (test code = 22.8 % 40.1-51.0 L 411) MEAN CORPUSCULAR VOLUME (BEAKER) 89 fL 79-92 (test code = 753) MEAN CORPUSCULAR HEMOGLOBIN 29.6 pg 25.7-32.2 (BEAKER) (test code = 751) MEAN CORPUSCULAR HEMOGLOBIN CONC 33.3 GM/DL 32.3-36.5 (BEAKER) (test code = 752) RED CELL DISTRIBUTION WIDTH 18.6 % 11.6-14.4 H (BEAKER) (test code = 412) PLATELET COUNT (BEAKER) (test code 47 K/CU MM 150-450 L = 756) MEAN PLATELET VOLUME (BEAKER) 11.5 fL 9.4-12.4 (test code = 754) NUCLEATED RED BLOOD CELLS (BEAKER) 0 /100 WBC 0-0 (test code = 413) POCT-GLUCOSE [id number] 21:03:47 Test Item Value Reference Range Interpretation Comments POC-GLUCOSE METER 117 mg/dL 70-110 H : TESTED A T [facility] (BEAKER) (test code = [facility], 1538) 07697: Nonprofit Financial Controller/Techni keith ID = [id number] for UN HAILEY MAYBERRY JR POCT-GLUCOSE [id number] 15:26:29 Test Item Value Reference Range Interpretation Comments POC-GLUCOSE METER 122 mg/dL 70-110 H : TESTED A T [facility] (BEAKER) (test code = [facility], 1538) 05820: Nonprofit Financial Controller/Techni keith ID = [id number] for Pr erasto (contrac)Sanjay el CBC (HEMOGRAM ONLY)2023-08-31 13:30:36 Test Item Value Reference Range Interpretation Comments WHITE BLOOD CELL COUNT (BEAKER) 1.3 K/ L 3.5-10.5 L (test code = 775) RED BLOOD CELL COUNT (BEAKER) 3.07 M/ L 4.63-6.08 L (test code = 761) HEMOGLOBIN (BEAKER) (test code = 9.3 GM/DL 13.7-17.5 L 410) HEMATOCRIT (BEAKER) (test code = 27.6 % 40.1-51.0 L 411) MEAN CORPUSCULAR VOLUME (BEAKER) 90 fL 79-92 (test code = 753) MEAN CORPUSCULAR HEMOGLOBIN 30.3 pg 25.7-32.2 (BEAKER) (test code = 751) MEAN CORPUSCULAR HEMOGLOBIN CONC 33.7 GM/DL 32.3-36.5 (BEAKER) (test code = 752) RED CELL DISTRIBUTION WIDTH 18.5 % 11.6-14.4 H (BEAKER) (test code = 412) PLATELET COUNT (BEAKER) (test code 50 K/CU MM 150-450 L = 756) MEAN PLATELET VOLUME (BEAKER) 10.7 fL 9.4-12.4 (test code = 754) NUCLEATED RED BLOOD CELLS (BEAKER) 0 /100 WBC 0-0 (test code = 413) POCT-GLUCOSE [id number] 11:47:40 Test Item Value Reference Range Interpretation Comments POC-GLUCOSE METER 116 mg/dL 70-110 H : TESTED A T [facility] (BEAKER) (test code = [facility], 1538) 00843: Nonprofit Financial Controller/Techni keith ID = [id number] for FE JULIÁN RICO POCT-GLUCOSE [id number] 08:58:46 Test Item Value Reference Range Interpretation Comments POC-GLUCOSE METER 111 mg/dL 70-110 H : TESTED A T [facility] (BEAKER) (test code = [facility], 1538) 87095: Nonprofit Financial Controller/Techni keith ID = [id number] for Pr imas (contrac), Jakeu el BASIC METABOLIC [id number] 06:56:49 Test Item Value Reference Range Interpretation Comments SODIUM (BEAKER) 137 meq/L 136-145 (test code = 381) POTASSIUM 3.4 meq/L 3.5-5.1 L (BEAKER) (test code = 379) CHLORIDE (BEAKER) 109 meq/L 98-107 H (test code = 382) CO2 (BEAKER) 22 meq/L 22-29 (test code = 355) BLOOD UREA 13 mg/dL 7-21 NITROGEN (BEAKER) (test code = 354) CREATININE 0.61 mg/dL 0.57-1.25 (BEAKER) (test code = 358) GLUCOSE RANDOM 102 mg/dL 70-105 (BEAKER) (test code = 652) CALCIUM (BEAKER) 7.8 mg/dL 8.4-10.2 L (test code = 697) EGFR (BEAKER) 101 Interpretatio n of eGFR (test code = mL/min/1.73 values Stage De scription 1092) sq m Result G1 Nicole l or high >=90 G2 Mildly decreased 60-89 G3a Mildl y to moderately 45-5 9 G3b Moderately to s everely 30-44 G4 Severl y decreased 15-29 G5 Kidney failure <15Reported eGF R is based on the CKD-EPI 2020 equation that d oes not use a race coefficientEsti mated GFR is not as accur ate as Creatinine Hina yoly in predicting glom erular filtration rate . Estimated GFR is not appl icable for dialysis patien ts Nonprofit Financial Controller ID - emCBC (HEMOGRAM ONLY)2023-08-31 06:49:40 Test Item Value Reference Range Interpretation Comments WHITE BLOOD CELL COUNT (BEAKER) 1.4 K/ L 3.5-10.5 L (test code = 775) RED BLOOD CELL COUNT (BEAKER) 2.73 M/ L 4.63-6.08 L (test code = 761) HEMOGLOBIN (BEAKER) (test code = 8.0 GM/DL 13.7-17.5 L 410) HEMATOCRIT (BEAKER) (test code = 24.1 % 40.1-51.0 L 411) MEAN CORPUSCULAR VOLUME (BEAKER) 88 fL 79-92 (test code = 753) MEAN CORPUSCULAR HEMOGLOBIN 29.3 pg 25.7-32.2 (BEAKER) (test code = 751) MEAN CORPUSCULAR HEMOGLOBIN CONC 33.2 GM/DL 32.3-36.5 (BEAKER) (test code = 752) RED CELL DISTRIBUTION WIDTH 18.3 % 11.6-14.4 H (BEAKER) (test code = 412) PLATELET COUNT (BEAKER) (test code 41 K/CU MM 150-450 L = 756) MEAN PLATELET VOLUME (BEAKER) 9.9 fL 9.4-12.4 (test code = 754) NUCLEATED RED BLOOD CELLS (BEAKER) 0 /100 WBC 0-0 (test code = 413) Prepare Leuko-Red [id number] 23:55:00 Test Item Value Reference Range Interpretation Comments Unit ABO (test code = 9158357) A Pos UNIT NUMBER (test code = [id number] 934-0) Status (test code = 4637560) TX_TIMEINCHART Blood Bank Product (test code PLATELETS = 2263) PRODUCT CODE (test code = I0077F61 933-2) [facility] [id number] 22:00:56 Test Item Value Reference Range Interpretation Comments POC-GLUCOSE METER 99 mg/dL 70-110 : TESTED A T [facility] (BEAKER) (test code = [facility] [place], 1538) 79066: Nonprofit Financial Controller/Techni keith ID = [id number] for MARVA WAYNEELVIRA POCT-GLUCOSE [id number] 15:37:49 Test Item Value Reference Range Interpretation Comments POC-GLUCOSE METER 114 mg/dL 70-110 H : TESTED A T [facility] (BEAKER) (test code = [facility], 1538) 01604: Nonprofit Financial Controller/Techni keith ID = [id number] for Sukhdeep Kennedy POCT-GLUCOSE [id number] 11:39:37 Test Item Value Reference Range Interpretation Comments POC-GLUCOSE METER 114 mg/dL 70-110 H : TESTED A T [facility] (BEAKER) (test code = [facility], 1538) 75260: Nonprofit Financial Controller/Techni keith ID = [id number] for Sukhdeep Kennedy POCT-GLUCOSE [id number] 07:47:16 Test Item Value Reference Range Interpretation Comments POC-GLUCOSE METER 91 mg/dL 70-110 : TESTED A T [facility] (BEAKER) (test code = [facility], 1538) 95601: Nonprofit Financial Controller/Techni keith ID = [id number] for Sukhdeep Chawla BASIC METABOLIC [id number] 06:49:41 Test Item Value Reference Range Interpretation Comments SODIUM (BEAKER) 137 meq/L 136-145 (test code = 381) POTASSIUM 3.2 meq/L 3.5-5.1 L (BEAKER) (test code = 379) CHLORIDE (BEAKER) 109 meq/L 98-107 H (test code = 382) CO2 (BEAKER) 21 meq/L 22-29 L (test code = 355) BLOOD UREA 17 mg/dL 7-21 NITROGEN (BEAKER) (test code = 354) CREATININE 0.64 mg/dL 0.57-1.25 (BEAKER) (test code = 358) GLUCOSE RANDOM 93 mg/dL 70-105 (BEAKER) (test code = 652) CALCIUM (BEAKER) 7.7 mg/dL 8.4-10.2 L (test code = 697) EGFR (BEAKER) 100 Interpretatio n of eGFR (test code = mL/min/1.73 values Stage De scription 1092) sq m Result G1 Nicole l or high >=90 G2 Mildly decreased 60-89 G3a Mildl y to moderately 45-5 9 G3b Moderately to s everely 30-44 G4 Severl y decreased 15-29 G5 Kidney failure <15Reported eGF R is based on the CKD-EPI 2020 equation that d oes not use a race coefficientEsti mated GFR is not as accur ate as Creatinine Hina [place] in predicting glom erular filtration rate . Estimated GFR is not appl icable for dialysis patien ts Nonprofit Financial Controller ID Felecia LOPEZ [id number] 06:28:29 Test Item Value Reference Range Interpretation Comments FERRITIN (BEAKER) (test code = 1114.89 ng/mL 5.00-275.00 H 361) Nonprofit Financial Controller ID - JOHN WIRON, TIBC, % SAT. (WITHOUT FERRITIN)2023-08-30 06:06:43 Test Item Value Reference Range Interpretation Comments IRON (BEAKER) (test code = 547) 27.0 ug/dL 40.0-160.0 L TOTAL IRON BINDING CAPACITY 169 ug/dL 250-450 L (BEAKER) (test code = 769) IRON % SATURATION (2) (BEAKER) 16 % 20-55 L (test code = 2590) Nonprofit Financial Controller ID Felecia LOPEZ WCBC (HEMOGRAM ONLY)2023-08-30 05:54:32 Test Item Value Reference Range Interpretation Comments WHITE BLOOD CELL COUNT (BEAKER) 1.7 K/ L 3.5-10.5 L (test code = 775) RED BLOOD CELL COUNT (BEAKER) 2.93 M/ L 4.63-6.08 L (test code = 761) HEMOGLOBIN (BEAKER) (test code = 8.5 GM/DL 13.7-17.5 L 410) HEMATOCRIT (BEAKER) (test code = 25.8 % 40.1-51.0 L 411) MEAN CORPUSCULAR VOLUME (BEAKER) 88 fL 79-92 (test code = 753) MEAN CORPUSCULAR HEMOGLOBIN 29.0 pg 25.7-32.2 (BEAKER) (test code = 751) MEAN CORPUSCULAR HEMOGLOBIN CONC 32.9 GM/DL 32.3-36.5 (BEAKER) (test code = 752) RED CELL DISTRIBUTION WIDTH 17.9 % 11.6-14.4 H (BEAKER) (test code = 412) PLATELET COUNT (BEAKER) (test code 47 K/CU MM 150-450 L = 756) MEAN PLATELET VOLUME (BEAKER) 10.7 fL 9.4-12.4 (test code = 754) NUCLEATED RED BLOOD CELLS (BEAKER) 0 /100 WBC 0-0 (test code = 413) (CELLAVISION MANUAL DIFF)2023-08-29 16:32:08 Test Item Value Reference Range Interpretation Comments NEUTROPHILS - REL 74 % (CELLAVISION)(BEAKER) (test code = 2816) LYMPHOCYTES - REL 12 % (CELLAVISION)(BEAKER) (test code = 2817) MONOCYTES - REL 2 % (CELLAVISION)(BEAKER) (test code = 2818) EOSINOPHILS - REL 2 % (CELLAVISION)(BEAKER) (test code = 2819) BANDS - REL (CELLAVISION)(BEAKER) 11 % 0-10 H (test code = 2826) NEUTROPHILS - ABS 1.11 K/ul 1.78-5.38 L (CELLAVISION)(BEAKER) (test code = 2830) LYMPHOCYTES - ABS 0.18 K/ul 1.32-3.57 L (CELLAVISION)(BEAKER) (test code = 2831) MONOCYTES - ABS 0.03 K/uL 0.30-0.82 L (CELLAVISION)(BEAKER) (test code = 2832) EOSINOPHILS - ABS 0.03 K/uL 0.04-0.54 L (CELLAVISION)(BEAKER) (test code = 2834) BANDS - ABS (CELLAVISION)(BEAKER) 0.17 K/uL 0.00-0.80 (test code = 2840) TOTAL COUNTED (BEAKER) (test code 100 = 1351) MANUAL NRBC PER 100 CELLS 4 /100 WBC 0-0 H (BEAKER) (test code = 1353) SMUDGE CELLS (BEAKER) (test code Present = 1371) GIANT PLATELETS (BEAKER) (test Present code = 313) ANISOCYTOSIS (BEAKER) (test code 1+ few = 961) POIKILOCYTES (BEAKER) (test code 2+ moderate = 966) ARTIFACT (CELLAVISION)(BEAKER) Present (test code = 3432) PLATELET CONCENTRATION Decreased (CELLAVISION)(BEAKER) (test code = 3438) Nonprofit Financial Controller ID - laly Allen comments: Slide comments:POCT-GLUCOSE METER 2023-08-29 15:51:40 Test Item Value Reference Range Interpretation Comments POC-GLUCOSE METER 79 mg/dL 70-110 : TESTED A T [facility] (BEAKER) (test code = [facility], 1538) 58121: Nonprofit Financial Controller/Techni keith ID = [id number] for Sukhdeep Chawla CBC W/PLT COUNT & AUTO [id number] 15:37:06 Test Item Value Reference Range Interpretation Comments WHITE BLOOD CELL COUNT (BEAKER) 1.5 K/ L 3.5-10.5 L (test code = 775) RED BLOOD CELL COUNT (BEAKER) 2.99 M/ L 4.63-6.08 L (test code = 761) HEMOGLOBIN (BEAKER) (test code = 8.6 GM/DL 13.7-17.5 L 410) HEMATOCRIT (BEAKER) (test code = 26.2 % 40.1-51.0 L 411) MEAN CORPUSCULAR VOLUME (BEAKER) 88 fL 79-92 (test code = 753) MEAN CORPUSCULAR HEMOGLOBIN 28.8 pg 25.7-32.2 (BEAKER) (test code = 751) MEAN CORPUSCULAR HEMOGLOBIN CONC 32.8 GM/DL 32.3-36.5 (BEAKER) (test code = 752) RED CELL DISTRIBUTION WIDTH 17.6 % 11.6-14.4 H (BEAKER) (test code = 412) PLATELET COUNT (BEAKER) (test code 50 K/CU MM 150-450 L = 756) MEAN PLATELET VOLUME (BEAKER) 9.4 fL 9.4-12.4 (test code = 754) NUCLEATED RED BLOOD CELLS (BEAKER) 0 /100 WBC 0-0 (test code = 413) POCT-GLUCOSE [id number] 11:31:37 Test Item Value Reference Range Interpretation Comments POC-GLUCOSE METER 94 mg/dL 70-110 : TESTED A T [facility] 6720 (BEAKER) (test code = [facility], 1538) [id number]: Nonprofit Financial Controller/Techni keith ID = [id number] for Sukhdeep Chawla BASIC METABOLIC [id number] 09:26:07 Test Item Value Reference Range Interpretation Comments SODIUM (BEAKER) 142 meq/L 136-145 (test code = 381) POTASSIUM 3.2 meq/L 3.5-5.1 L (BEAKER) (test code = 379) CHLORIDE (BEAKER) 110 meq/L 98-107 H (test code = 382) CO2 (BEAKER) 24 meq/L 22-29 (test code = 355) BLOOD UREA 23 mg/dL 7-21 H NITROGEN (BEAKER) (test code = 354) CREATININE 0.58 mg/dL 0.57-1.25 (BEAKER) (test code = 358) GLUCOSE RANDOM 104 mg/dL 70-105 (BEAKER) (test code = 652) CALCIUM (BEAKER) 8.0 mg/dL 8.4-10.2 L (test code = 697) EGFR (BEAKER) 103 Interpretatio n of eGFR (test code = mL/min/1.73 values Stage De scription 1092) sq m Result G1 Nicole l or high >=90 G2 Mildly decreased 60-89 G3a Mildl y to moderately 45- 59 G3b Moderately to s everely 30-44 G4 Severl y decreased 15-29 G5 Kidney failure <15Reported eGF R is based on the CKD-EPI 2020 equation that d oes not use a race coefficientEsti mated GFR is not as accur ate as Creatinine Hina [place] in predicting glom erular filtration rate . Estimated GFR is not appl icable for dialysis patien ts POCT-GLUCOSE [id number] 07:51:59 Test Item Value Reference Range Interpretation Comments POC-GLUCOSE METER 90 mg/dL 70-110 : TESTED A T [facility] 6720 (BEAKER) (test code = [facility] [place] [place], 1538) [id number]: Nonprofit Financial Controller/Techni keith ID = [id number] for Sukhdeep Chawla CBC (HEMOGRAM ONLY)2023-08-29 04:43:41 Test Item Value Reference Range Interpretation Comments WHITE BLOOD CELL COUNT (BEAKER) 1.5 K/ L 3.5-10.5 L (test code = 775) RED BLOOD CELL COUNT (BEAKER) 2.39 M/ L 4.63-6.08 L (test code = 761) HEMOGLOBIN (BEAKER) (test code = 7.0 GM/DL 13.7-17.5 L 410) HEMATOCRIT (BEAKER) (test code = 21.0 % 40.1-51.0 L 411) MEAN CORPUSCULAR VOLUME (BEAKER) 88 fL 79-92 (test code = 753) MEAN CORPUSCULAR HEMOGLOBIN 29.3 pg 25.7-32.2 (BEAKER) (test code = 751) MEAN CORPUSCULAR HEMOGLOBIN CONC 33.3 GM/DL 32.3-36.5 (BEAKER) (test code = 752) RED CELL DISTRIBUTION WIDTH 17.2 % 11.6-14.4 H (BEAKER) (test code = 412) PLATELET COUNT (BEAKER) (test code 46 K/CU MM 150-450 L = 756) MEAN PLATELET VOLUME (AKER) 10.1 fL 9.4-12.4 (test code = 754) NUCLEATED RED BLOOD CELLS (AKER) 1 /100 WBC 0-0 H (test code = 413) POCT-GLUCOSE [id number] 20:41:26 Test Item Value Reference Range Interpretation Comments POC-GLUCOSE METER 104 mg/dL 70-110 : TESTED A T [facility] 67[facility] ([facility]) (test code = [facility], 153) [id number]: Nonprofit Financial Controller/Techni keith ID = [id number] for MARIYA HUBBARD POCT-GLUCOSE [id number] 16:56:43 Test Item Value Reference Range Interpretation Comments POC-GLUCOSE METER 109 mg/dL 70-110 : TESTED A T [facility] 67[facility] ([facility]) (test code = [facility], 153) [id number]: Nonprofit Financial Controller/Techni keith ID = [id number] for FE LDER, JULIÁN POCT-GLUCOSE [id number] 13:21:57 Test Item Value Reference Range Interpretation Comments POC-GLUCOSE METER 140 mg/dL 70-110 H : TESTED A T [facility] 67[facility] ([facility]) (test code = [facility], 153) 18325: Nonprofit Financial Controller/Techni keith ID = [id number] for FE LDER, JULIÁN HEMOGLOBIN [id number] 11:16:47 Test Item Value Reference Range Interpretation Comments HEMOGLOBIN A1C 5.3 % See_Comment [Automated m essage] ELECTROPHORESIS ([facility]) The system which (test code = 3811) generated this result transmitted ref erence range: <=5.6%. The reference range was not used to int erpret this result as normal/abnormal . "The A1c is measured using a [facility]certified method. HbA1c value equal to or greater than 6.5% as thediagnosis cutoff for diabetes. An HbA1c value of 5.7- 6.4% indicates increased risk for diabetes (prediabetes)."Nonprofit Financial Controller ID - ADMPOCT- GLUCOSE [id number] 07:57:14 Test Item Value Reference Range Interpretation Comments POC-GLUCOSE METER 100 mg/dL 70-110 : TESTED A T [facility] 6720 (BEAKER) (test code = [facility], 1538) 55949: Nonprofit Financial Controller/Techni keith ID = [id number] for JULIÁN OCHOA COMPREHENSIVE METABOLIC [id number] 06:03:42 Test Item Value Reference Range Interpretation Comments TOTAL PROTEIN 4.4 gm/dL 6.0-8.3 L (BEAKER) (test code = 770) ALBUMIN (BEAKER) 2.2 g/dL 3.5-5.0 L (test code = 1145) ALKALINE 88 U/L 40-150 PHOSPHATASE (BEAKER) (test code = 346) BILIRUBIN TOTAL 0.5 mg/dL 0.2-1.2 (BEAKER) (test code = 377) SODIUM (BEAKER) 137 meq/L 136-145 (test code = 381) POTASSIUM (BEAKER) 3.6 meq/L 3.5-5.1 (test code = 379) CHLORIDE (BEAKER) 110 meq/L 98-107 H (test code = 382) CO2 (BEAKER) (test 22 meq/L 22-29 code = 355) BLOOD UREA 25 mg/dL 7-21 H NITROGEN (BEAKER) (test code = 354) CREATININE 0.70 mg/dL 0.57-1.25 (BEAKER) (test code = 358) GLUCOSE RANDOM 102 mg/dL 70-105 (BEAKER) (test code = 652) CALCIUM (BEAKER) 7.7 mg/dL 8.4-10.2 L (test code = 697) AST (SGOT) 17 U/L 5-34 (BEAKER) (test code = 353) ALT (SGPT) 15 U/L 6-55 (BEAKER) (test code = 347) EGFR (BEAKER) 98 Interpretatio n of eGFR (test code = 1092) mL/min/1.[address] age Description sq m Result G1 Nicole l or high >=90 G2 Mildly decreased 60-89 G3a Mildl y to moderately 45-5 9 G3b Moderately to s everely 30-44 G4 Severl y decreased 15-29 G5 Kidney failure <15Reported eGF R is based on the CKD-EPI 2020 equation that d oes not use a race coefficientEsti mated GFR is not as accur ate as Creatinine Hina yoly in predicting glom erular filtration rate . Estimated GFR is not appl icable for dialysis patien ts Nonprofit Financial Controller ID - emCBC (HEMOGRAM ONLY)2023-08-28 05:18:21 Test Item Value Reference Range Interpretation Comments WHITE BLOOD CELL COUNT (BEAKER) 1.7 K/ L 3.5-10.5 L (test code = 775) RED BLOOD CELL COUNT (BEAKER) 2.44 M/ L 4.63-6.08 L (test code = 761) HEMOGLOBIN (BEAKER) (test code = 7.2 GM/DL 13.7-17.5 L 410) HEMATOCRIT (BEAKER) (test code = 21.5 % 40.1-51.0 L 411) MEAN CORPUSCULAR VOLUME (BEAKER) 88 fL 79-92 (test code = 753) MEAN CORPUSCULAR HEMOGLOBIN 29.5 pg 25.7-32.2 (BEAKER) (test code = 751) MEAN CORPUSCULAR HEMOGLOBIN CONC 33.5 GM/DL 32.3-36.5 (BEAKER) (test code = 752) RED CELL DISTRIBUTION WIDTH 17.7 % 11.6-14.4 H (BEAKER) (test code = 412) PLATELET COUNT (BEAKER) (test code 42 K/CU MM 150-450 L = 756) MEAN PLATELET VOLUME (BEAKER) 11.2 fL 9.4-12.4 (test code = 754) NUCLEATED RED BLOOD CELLS (BEAKER) 1 /100 WBC 0-0 H (test code = 413) POCT-GLUCOSE [id number] 23:38:43 Test Item Value Reference Range Interpretation Comments POC-GLUCOSE METER 93 mg/dL 70-110 : TESTED A T [facility] 6720 (BEAKER) (test code = [place], 1538) 44[address]: Nonprofit Financial Controller/Techni keith ID = [id number] for MARIYA HERNANDEZ (CELLAVISION MANUAL DIFF)2023-08-27 22:04:15 Test Item Value Reference Range Interpretation Comments NEUTROPHILS - REL 80 % (CELLAVISION)(BEAKER) (test code = 2816) LYMPHOCYTES - REL 13 % (CELLAVISION)(BEAKER) (test code = 2817) MONOCYTES - REL 4 % (CELLAVISION)(BEAKER) (test code = 2818) BANDS - REL (CELLAVISION)(BEAKER) 3 % 0-10 (test code = 2826) NEUTROPHILS - ABS 1.36 K/ul 1.78-5.38 L (CELLAVISION)(BEAKER) (test code = 2830) LYMPHOCYTES - ABS 0.22 K/ul 1.32-3.57 L (CELLAVISION)(BEAKER) (test code = 2831) MONOCYTES - ABS 0.07 K/uL 0.30-0.82 L (CELLAVISION)(BEAKER) (test code = 2832) BANDS - ABS (CELLAVISION)(BEAKER) 0.05 K/uL 0.00-0.80 (test code = 2840) TOTAL COUNTED (BEAKER) (test code 100 = 1351) MANUAL NRBC PER 100 CELLS (BEAKER) 3 /100 WBC 0-0 H (test code = 1353) SMUDGE CELLS (BEAKER) (test code = Present 1371) GIANT PLATELETS (BEAKER) (test Present code = 313) ANISOCYTOSIS (BEAKER) (test code = 1+ few 961) MICROCYTES (BEAKER) (test code = 1+ few 965) POIKILOCYTES (BEAKER) (test code = 1+ few 966) ARTIFACT (CELLAVISION)(BEAKER) Present (test code = 3432) PLATELET CONCENTRATION Decreased (CELLAVISION)(BEAKER) (test code = 3438) Nonprofit Financial Controller ID - [id number] ID - ally Allen comments: Slide comments: COMPREHENSIVE METABOLIC [id number] 22:03:18 Test Item Value Reference Range Interpretation Comments TOTAL PROTEIN 4.9 gm/dL 6.0-8.3 L Specimen moder ately (BEAKER) (test hemolyzed code = 770) ALBUMIN (BEAKER) 2.3 g/dL 3.5-5.0 L Specimen mo derately (test code = 1145) hemolyzed ALKALINE 93 U/L 40-150 PHOSPHATASE (BEAKER) (test code = 346) BILIRUBIN TOTAL 0.5 mg/dL 0.2-1.2 Specimen mod erately (BEAKER) (test hemolyzed code = 377) SODIUM (BEAKER) 137 meq/L 136-145 (test code = 381) POTASSIUM (BEAKER) 4.4 meq/L 3.5-5.1 Specimen moderately (test code = 379) hemolyzed CHLORIDE (BEAKER) 111 meq/L 98-107 H (test code = 382) CO2 (BEAKER) (test 20 meq/L 22-29 L code = 355) BLOOD UREA 21 mg/dL 7-21 NITROGEN (BEAKER) (test code = 354) CREATININE 0.73 mg/dL 0.57-1.25 Specimen modera tely (BEAKER) (test hemolyzed code = 358) GLUCOSE RANDOM 102 mg/dL 70-105 (BEAKER) (test code = 652) CALCIUM (BEAKER) 7.4 mg/dL 8.4-10.2 L (test code = 697) AST (SGOT) 30 U/L 5-34 Specimen modera tely (BEAKER) (test hemolyzed code = 353) ALT (SGPT) 17 U/L 6-55 Specimen modera tely (BEAKER) (test hemolyzed code = 347) EGFR (BEAKER) 97 Interpretatio n of eGFR (test code = 1092) mL/min/1.[address] age Description sq m Result G1 Nicole l or high >=90 G2 Mildly decreased 60-89 G3a Mildl y to moderately 45-5 9 G3b Moderately to s everely 30-44 G4 Severl y decreased 15-29 G5 Kidney failure <15Reported eGF R is based on the CKD-EPI 2021 equation that d oes not use a race coefficientEsti mated GFR is not as accur ate as Creatinine Hina yoly in predicting glom erular filtration rate . Estimated GFR is not appl icable for dialysis patien ts Nonprofit Financial Controller ID - EOCBC W/PLT COUNT & AUTO [id number] 21:53:43 Test Item Value Reference Range Interpretation Comments WHITE BLOOD CELL COUNT (BEAKER) 1.7 K/ L 3.5-10.5 L (test code = 775) RED BLOOD CELL COUNT (BEAKER) 2.84 M/ L 4.63-6.08 L (test code = 761) HEMOGLOBIN (BEAKER) (test code = 8.1 GM/DL 13.7-17.5 L 410) HEMATOCRIT (BEAKER) (test code = 25.2 % 40.1-51.0 L 411) MEAN CORPUSCULAR VOLUME (BEAKER) 89 fL 79-92 (test code = 753) MEAN CORPUSCULAR HEMOGLOBIN 28.5 pg 25.7-32.2 (BEAKER) (test code = 751) MEAN CORPUSCULAR HEMOGLOBIN CONC 32.1 GM/DL 32.3-36.5 L (BEAKER) (test code = 752) RED CELL DISTRIBUTION WIDTH 17.5 % 11.6-14.4 H (BEAKER) (test code = 412) PLATELET COUNT (BEAKER) (test code 50 K/CU MM 150-450 L = 756) MEAN PLATELET VOLUME (BEAKER) 12.1 fL 9.4-12.4 (test code = 754) NUCLEATED RED BLOOD CELLS (BEAKER) 1 /100 WBC 0-0 H (test code = 413) Pathology Biopsy [id number] 23:23:29 Test Item Value Reference Range Interpretation Comments Addendum 3 (test code = i4pixJPoKFLfkDYlRLE 39) wNlxhbnNpXHNwbHRwZ3 LesgqoRSemTZ2hPY9ez GxhdHRveWVuXGRlZmYw d2hkn232hBScc0fjEHD PfdwbjWo8vZeqO66pc5 K8TemjG4sjUQNvXRczZ AAgPCpluFRlGSo1NQBd cGVydzEyMjQwXHBhcGV kuIU8KHUkWX0cwnpgJE saZQmbKDWgxtW3VPQif LYqI3ZzZWByOG2zsqwc KGZ8SBpdGPHgUOD0TnB aPSRnf1Dgohp6XuFtwL FyZFxwbGFpblxiXGZzM jObT1OhDRXSZLugFLhG CFUAK0bJM3QEB9lPJDz CHZVORVUpyyYdQ3ekcr UgMjJDMywgRGFrbyBQa UXahEW4DKBkGM65TKjj PH9fmDrctYCvOFjnXEH tPgTrMMVtFt3ehOOaVK 8mRHOxDh2djFYhpX3kQ be0EGPwhFPnTFMohE2s IK9eOEFoKKBlh1KnbCy gkoVfBrVxAGKxk0Vxub Acxc0nBURiwv8tTNFqa 6CsLJetUGrsXnzrsFO9 SRxQeZ1hvpxmGJMvELS hclx+XHBhclxmaTcyMC EJj44vjM4bUALTy7Tvx Gz0YVDKF01uDMUdH5HX ADR4XMszPHBdJUkuy1A emRp2ROqyLGOnqirrJJ x+XHBhclxmaTBcdWxcZ jIsDwXWu2VwzPRVqbOd ww2jfPjpmyu2aPJuLxF PsAxhVTUxl5P1LXnxQZ 2exbDeMKX6qBFpUMFlt DFAN6ynPW13IGEni41i FQ1eGTUeUWGhNVFvm86 dG0phahRkOJExtCovAX QtVPGdBBSyh05kCGOuJ uTwOTg4HObxXNLogbHc bb7gYQXjykAys5OtYCs nth7dvXiyVKRcGZFzGq Phbz7zcNBrACXmRVX7k UNzdXWihQLsdhopIT7k QWdpbGVudCBEYWtvIGF 6hW2flJXpfpPwKKXbLP Lnk8j5tVYjSSChq0CyS GRldGVjdGlvbiBraXQs IGFzIHNwZWNpZmllZCB twFX0cAFykRMwlWSwV0 Y3voFwPyMLqDTkyaJvm XLzq8IzXAAdx4HqoHNw REIzFSXxP21mrWNahJ0 aXKTxEMpww6E8cWYmOy 9yIHNwZWNpZmljIHRoZ XJhcGllcyBvbiBjZXJ0 CAogJEJ9fD6lUQJ9yVT zLkNvbWJpbmVkIHBvc2 l1wQSsTQBfv8PoMQkCW BSuHNksLPTkuPY3eTR8 WYWeKYRseBqrQI62bHA mwzPmCtIAKJ3YEIKjhW FpbmluZyBjZWxscyAod mlhYmxlIGludmFzaXZl CRJ6fQ8yEZLquJujJUP hn9jldkkrqROzRyHhos 91cyBzdGFpbmluZyBvZ hXvlvfqcH35AQ7xyCE1 HxKomM5oeW0hnWZolsE qviNyjLPcpc0xbTGvGC OtqH3erNxqDQY2tL5jF XBfQLDgl1aik7dtOwNz MH1kgzLoh9KgMR9cCDY 2dW5vpAOspMgxCNP7SD vnzF7iRJ8xJSTduBPnw nRlbnNpdHkpIGRpdmlk ZWQgYnkgdGhlIHRvdGF dSJ52jNSvczNoMtT1lH ZvsCJzpB19KITyzyJkk WOro5UmV6WuxCIgCI04 bHRpcGxpZWQgYnkgMTA xOhKSaPPifOX1xU62kY BsT67nRMFgupXjAGNtu mVkIGFzIENQUyAxMDAu KQOixcjblvNwZC7nvZD yfQ== Addendum 2 (test code = l2joxWTvHEZjdYCyHEW 38) wNlxhbnNpXHNwbHRwZ3 HblndvNEmgWN4vNN6wm GxhdHRveWVuXGRlZmYw c1izf588jQDfw1hgVIC SotnagQt1dNuqF40bd9 P8RggvM37xlIQbKJI7V TIyNDBccGFwZXJoMTU4 AJTvkSRjI4bvVJRwOE6 hcmdyMTgwMFxtYXJndD E9ZPSppDQzM2LyBMUeY OngYZNyyvc6CxCaRm8m dGVyeTcyMFxwYXJkXHB sYWluXGZzMjBccGFyXH BhclxsaTFccmkxXGxpb iNbYvMDiiTpU3IpNXzr koPih4kfvyPdPdANSbH duGqinWJ5Z6rdaiNjMO oqKKLut5NuuM3yYHysN BM8nS0gPLP7XXtqtMWi o7ytc7DdP2rooNinnUK 9TkhkGAVyNnPiSI8iaH 2mtDMen0nnSCRkOKJif CLafxWmRc5hGBAtBZWF PyKwzLrbvIY1J4njhtS wYWlyIGVuenltZXMgTU xIMSwgTVNIMiwgTVNIN wTfikYcZU3PAuDekC51 IGludGFjdCBudWNsZWF wUMU0dJGae2Tng71uUZ xhDFYrUVOhQb4oNKpwv HefSJpwd9AvnArcr3Az w0MtXGVoZOB3fDRrXWB OQSBtaXNtYXRjaCByZX BhaXIvaGlnaCBsZXZlb VZrp6DutFxfch2rFRKz gWwogGIvwH0joNEriUt chCucGR8BAV3HAJMpmt W8pAVosVAlo0BztQVif F90UkamGWYnaOSjZS0y vP6thQtrsK3xeZJyvSV 4hfszkEIdBBWlnv54bB 7atRKnqBB7AI62XCLks 6Mmi2i7pOKaQKLapkPl BTPmP1Upn91li5YsFGH XBJxyDP2gc0Cne2NklQ lcTR3NPV6NQOLpheMkm u5xGQNorErvg2KlSDO7 GTlouQHas7lcx3ZqY9f yrJgfeDW0MA0vZ4JlHS luIHBhdGllbnRzIHdpd WumSJplX6lce9hlETSo bWUvaGVyZWRpdGFyeSB we65epE6wuOIje7bsYM YkvB9qVDK2TPgfN7WdE 0HtIGrXVtNAJoasn3yb ZHJvbWUuXHBhclxwYXJ kXHBhcn0= Addendum 1 (test code = u1hqvTQyETBttMGfUQG 37) wNlxhbnNpXHNwbHRwZ3 HwucdaLCxgRX9eBX8yv GxhdHRveWVuXGRlZmYw u0ahe309nTZct1elLIF RittdrJx4gEfjP25jk5 R9VcftU9ceGAKdRAbbO DNgBCgbrPRjOKu2FMRe cGVydzEyMjQwXHBhcGV ghDU2ZJPtLH0jalivTH eaWZpwYKTlicK9XXZyp WLaV3XmDYFaKP1bvabw ULJ3HKmuFLSiDLB3KdP iMSBqg4Gfdgj2AuVvkK FyZFxwbGFpblxiXGZzM kLaN4UzUIjPKp5qU50e iSNoIJV7SFKZNK33ML5 hIFBBVEhXQVkpIElNTV NBU4lYG2BHE8oQJPoTA FJZXHBhclxiMCBQZXJm j3TkQZJmk70oJEWns0F fCTvwzg5baBncNSZhYB JhZmZpbiBlbWJlZGRlZ PYhBNH1eK3xLU0zZNYq byYuht6zZBUzcx1pYHY rh1VxYBlsRDnlZdbiwF M7GPiUvO6wukamLJEbM HBhclx+XHBhclxmaTcy DCOUwoYaMW6qscJcr8O vRUReQFB4pIYqdLwccZ 7oVQ50BNT8mZ8kBTIgr DzlqOCsZVKhFKRoYN5c A4W7uWPrJOcxPCRjFrs wXGIwXHBhclxwYXJcZn VsDaPNZ28NYf6MWSwua VGkQGYrZpVcXC6cWYKP QA0fZYsKRWDXHG6iW6P 5p8MhBSYxVTIgtSOhcK Ywu6BgGZFnOLB4OHWbH oLJhdIvjFV8h75xQbGa ptVxp10zsC0pwHmwxpP 9jWFwESKkRW9nvQzsmy GttGM7DOOihYTmZ7xay Q77eAVnNNN7WDClh99v RXApfbV1rkAmhR7ubtQ yw7YjJQHOXk7bo7AszT g6QVWpORWcdlUnCYZqW KB8vlvhAR0tTXnuc5Fi kn6nYOJgtQdxL3WdjAM leW6loFuutyBxXR4wYQ GwQKCaS8SuKjSwIVHwF HQtIUVcNY0vED9lgAPe XHmxPFEdiqCfzKh1YTS jU25qiOIpvEnqEJS6ws uxjC9gNSQtQ1M4JkGoI DRfFlO0Nmm2FMjrAxa1 LiBccGFyfQ== Submitted Clinical History g0hypOLsDBSff9gzAWI (test code = 54051) mbGFuZzEwMzNcZnRuYm pcdWMxIHtccnRmMVxzc 4LyT2EkQbJcSOsmxaNm XGRlZmxhbmcxMDMzXGZ 0bmJqXHVjMVxkZWZmMH uzNf4mhJBlnQqvFuFkX TLye4qbwdXBnlvamQh4 v9dpJLYhRjJ0pADaUMl hT0chwbQugJSoAWIjSQ p9fB69LNEkyW0hbIDaR QbvpfSgAjI5KRxxPUXg MgS8MUSlpLLrGXGpU9q yZWQwXGdyZWVuMFxibH JcWOK4iMieu0T6iUGdv GVldHtcZjBcZnMyMiBO k1AmPGi4pMxtE3JsPMU sKaW4lWVpVCFlHVukXW JhDKYnpdI8xP26INyfw aN0wYBde4Thj24ed327 eF9qoSYuJNA5LIVfKXY dkBGiRKNoICW5UMCchX JqA6vsOTYyFW1miiniX DpdHAeiRQYftIJ7AZGp wBKzL4XlYASlORgyKQI vbpq9ZeDzDx9tfBWbpI lqLMpyb0wqt5lbrQLjD pl3NDVlLrMaQpytJYki i6Dpq0neIKBnum9qQGA 9aPJwfZdho1U8bBRjOS OwvTUcrxKsZFLnImX4W RadIQ0bro70SVXfUBO5 hp1dsNOoiFofwyYypCL oPRxqN6ZrRAZxc836WY GoZ3WuZRVha6Z1lpTgB aCwEYVlgJA1mwZ9UJZt HRw9qSOkaoF0rjFjoXA rD0husB3rYCCwWN7vcn dby2rqBViqCWstWYJek QL4hbL1OQKrkAAaH1Kt rC5kSEQrLRfsAHDrqrr 5DuKoZg0lwCYgqJksTS xzYmtwYWdlXHBnbmNvb nRccGduZGVjXHBsYWlu XHBsYWluXGYwXGZzMjR wfCbjjHvnhL1rDoWhCz HzMNhxIW3zOUWcY1jpy WIzVGSjWVBnH8xrQfPd rT9pwKaqDFigibVqSD5 gjMpmcmUemVWnDI6rfS QebSSuWpIbQYScpL3nS HJksZycY3PezEVihC6c pUpxqvFhTrJoiP3bPKJ fYLxEDJDkBZ8ihZhwkD 1hYvVdHqBrSxpoAZ0mW NLaS5fcaVTuSOBgMYRu A5pgDqXxgK0zxLtdEOr bblQjZCYuos86 Diagnosis (test code = 34) k3evkRBxMPFfxOUiMAF wNVxhbnNpXHNwbHRwZ3 KfcjtvQWwwJU2xAP3rw GxhdHRveWVuXGRlZmYw g4fhe376vORik6brBKD NditnlHx4nYlkJ44bb0 A2TpgrN0xgOUOiAXfqT WDjUSuhmSIwIUu2TNJg cGVydzEyMjQwXHBhcGV hmDB7MWRjPH1afepwGL imYYwtMWCmyzA3OYKdp XZdV5GnKFYeVQ9qsoqe EUV6YUlzUDNgXWJ7BiO iKOVal9Myggd2TwKcnC FyZFxwbGFpblxmczIwX FFiBEPYMuTPr67irGRt dWMuBHJ1qQ4eTQDmvR8 xx4c1ALOvcvkcpIH8CI QwHlkrEcQdVRtexlX1N WJoN4XzKKwJSkKGUCLY KHhCFIVkU60RMeZVUZ0 KLYPBQ8uYClBkGT1EQu xZIERJRkZFUkVOVElBV BKFHEMGShZPVc7AOFVK IJPXIX0SDBHTZP1JZ2H XJT0MKOEJOLDTU2EFYO BHTEFORFVMQVIgRElGR oGKAC2URJMEFP8FWxUt S1RFDGXXBG5IJvMeQZH hcn0= Comment (test code = 9835) h1txyXDoVCOjvDMiFCG wNVxhbnNpXHNwbHRwZ3 VxzlpwHAwkKL4jKY6te GxhdHRveWVuXGRlZmYw b8pqo551bPXpb0koEPQ SueinlKa7nZobX14cr7 M2JkdvS09xmTLrYAL0G TIyNDBccGFwZXJoMTU4 PXIekJOwN1myLCRaSJ9 hcmdyMTgwMFxtYXJndD Q0AHFmbWXiX4ToPSGrV GsrZACjgno6BcQjSx0h dGVyeTcyMFxwYXJkXHB cSPwcARBqApMaQZ5euW 3rbFfawX2utUZdiXEkb CBzdHVkaWVzIHBlcmZv gr2gXPHhhTLZRH9TENC RRKHoc0mlhUiiYM1ui0 AuMBS7uYRvY1MclJQxP NMlXPMtc8c1sWOwJTQg beXcwB0tlBTftCd8q7q uIChkaWZmdXNlKSwgY2 hqt03nR3VokajxZBorK 5Z3xKMuUYTaU0GrqSCa LCBhbmQgcDQwIChDSzU hQeTfDNV0JCZuvTCrWS J9XZdkVgFsRSTyFGIuz PveWSpwST7cMNImQLUl EZmqnEx3SITvp0PqR6l 9CcJwLCHYQF47SPAcwC VfGQQ6DYjkc3IzwD1dB tWNRJ31K5rnRXRzrY6n DXX7FPezMUtwK6rqpBh wcVEbxKGsoTpjp9JbsN FcqqPwTJHscKt8nHQgJ IHuJEYjobCeNHy8iYwb GNrnrGIyfI9wQMKsTQB lIGlzIGludGFjdCBudW UfOSAeMBG6xNKil5Mst 23eRd4xHXTACIEUHFSt BWZMGhYxNVOsLOSxv4V vOD3yHC94P6fqPMJcCY jsqdSxt8lyyaUoi8OpL P3SKR0EKRMAJ9MsIXtZ CGD5GwrftO7laYonGX7 ru6GhFWG6xVKrP7HybN AsRFQhSAVnoE01yx1tf OV7j2VpRS4xJ3VcFBDm gzMmdrtnXOQ1hFZwbvF nvErgYWSpi9MrKSJaMG smu4Awac9clJPbAJFxi rOJdhV2yOaxLJGla7Be uCmxwRoqAKjwJJ7ooHd kxlUee44lb50jpnRvvt ZnlgLxEG37odMgJCWqL MXeSD7wItGsUD9yYBSf NHBhIY9tqFVsaMqeVNX qxOuuLuGXdEldKG7agA ByZXByZXNlbnQgYSBta TlrMLIvWFOgl2YjxjUq ch1dPA8cWWWpx4XoOH5 xwoprHQVkJGGfrJ0liL Qyr0ZpUZFxrBtkGZzbL UMgJM1kaIGmHL2vw6Sx nC6iWVQfawJpxo5eLO4 ccGFyfQ== Gross Description (test t6uezFNvRNCvaPBHNLM code = [id number]) lICOgSL3niEaoeEz3jH ieXAVpcvU1oSLpRPtgg 6zyPIZ9h0evwrEDWwkp XWPbOP2lWUfxCOXdKJ2 nZmUwXGRlZmYxXHBhcG VydzEyMjQwXHBhcGVya VA0FUVkPY7mhdziNYox QJsoGMIqlvZ9EEGrkGY rL6YjLBTfDV4vlefkWF L1UHZJKozuIm3lqOOpw HtcZjFcZmNoYXJzZXQw ANYgoQvvGAHyHNc2wV1 SKcfzC06gg9L9Qze6HB KjPKZpN1OxKQ0sOJOch QGtP43BCrbjOKS0SLHU AjnbYvxqqSumt8YfzKM cXHNnIFxcaWQgNTEwMD AgXFxkYiBPVlIgIiAxM dQ0Xoq7OvH1PXt9NGVG FSKqVvL7TFD0SgD6FKk 7RUTgWV9fKBwreXAoED ztWxprPAibA800BFkrH AYxD7KdP9IrYDfeEeEf XGlkIDUxMDAyIFxcZGI kH2CELQQwPKSeKsR9TK UfHLv3ITuzM7CAEKQlJ OD7OmE6MkZ3LdP9UCt0 ADZBTg4rLJA9TiT1StM 2EKQ8LSk5PRSsENQwYw BcXHNzIDMgXFxmbCBcX O4sxHllTHKtFH8QGCEb YWluXGJcZnMyMCBBOlx wYXIgDQpccGFyZCANCl xwbGFpblxiXGZzMjBcc UagcO2lkIQcS9xsXwKr MlxlcGljTmVzdERvYzE gDQpcbHRycGFyXGxpbj BccmluMFxzYTMwXGVwa TRXf6HoEDBZWrhjMCZh CDxgctNpSZOcq9DxGTq 2xvhwHBZmbVmrO4MvbK X9hC8tciP6YFFdMGMgK RSzSWMnmRqdvZJpe89g zWrucMWsNGClz6E5KUU mcmFnbWVudHMsIDAuOS S5VQHdVbE4UBKqPuIcq GQspfKfK3jyWJvsmQPk GCZajAiwRIh1QML5Tz6 zvACjSTDcveGOCR2wUT qxuo34MCV4e7weePXxY TqiEccioWMacvA9PAlN FVYCWYtPOdRwWO4dSPy JTktCRUdJTnwyMTAxNn wefBSDVYM5KXceeFjzf Pj5e4dbwZSuh3q5TYac LAX5uJMSs4mqfEQcKVi nLaqfmLNlxqY5AJmJLW OMKJwFMuJqKD2xJOyDO wuEKuR7NtOxYOA9KPiO X9IGzET7Ngv9UXi3rJg cZmxkcnNsdCBcJzFDfX 4enYkcpK2biUBnS5ceS nMyMCANClxlcGljTmVz qCWnOaU3PQIspCRgDML 5NC3kuQfbCGEzM2UoG7 YywpJ7HPDocvRPWlkoA MKqBB3OICMrRdIbZSi2 Biomarker Block(s) (test x6apqBRiZWSpeIKgKQA code = 9841) wNVxhbnNpXHNwbHRwZ3 TaxklePJwaJG6aQE0rm GxhdHRveWVuXGRlZmYw i1xot681fFJfn6bySZS VxeebjKs3qWxsG44ur9 X3YopbO85yiFWsLLP1Z TIyNDBccGFwZXJoMTU4 AZNivOXlA1bfWVNpKE8 hcmdyMTgwMFxtYXJndD O3LJRckSCfR1ZcRFNiM UatJSPhqcy9EsKqOu8u dGVyeTcyMFxwYXJkXHB sYWluXGZzMjAgUFJJTU BJEEUEFA6ZDpwuXdyxO 2sgQTFccGFyfQ== Disclaimer (test code = s2kneQAkMKNjvBXwNpB 9894) xXJViUEPkv1ugWAHjbB FuZzEwMzNcZnRuYmpcd UKsBOUdEzVvq6nhs013 nMVrx7upNPDsTdX0nIF uUEDboKDdE213ZXOqIM bre0ubc6VvPFEsfSJrl 2Q9OXKOuzfavMc7pFyf N53vp3W7CzjxI8feTWG yNLVkW5XmRT5oUVIzEa x9JPK4WII3XZIkYGHmJ 7LgWF4wQGMhbRGfGNi9 s0sxvUrqUIMsWNF9c4r uJQkjeqKdOV5tvp2frC i3m3vtygEwVJGmFWApl XSRDVZtJ2BqfVosNw5t hIy6sSblDyljPAE4Tkc 1RN5pyp99ofk9xLbfED WmpbssSzO4ERadILXvu atpRSh7FBwrZSXxuJH8 TCPuiDYkA2GyAHQkGZ4 nwug1DJB9BNbrUYRiQe J7TZTlqAMaXQSnkRynI Qehw538NCL0OdQoQP2c X4Ajo9I9uL6aeAGfEKP rrDUhGrCvJMGdya4fiS JcUAosk1CzFHC9qxU9m BEnmBUgIYSuIP05Ekvi l3MyGoumHTU2IFQbgcS oe8Pbp0tqHoIsnzHqW6 dbK2QiVDYeMTMsBAMoV cOneiWql8Qso2EpwCVb wYr1h4tqGHBzGURabAp ep8wfQGA2ZSAxS4H6gK Ugx2izRCtzCPAftLV6i pK4YVBfyIZqT5GodZ1z BBStML2pqbt4i3qeCYV 5YZtvTEDdQhK8gkH1TY BcaGVhZGVyeTcyMFxmb 511DSY8HhOkAVSbf1Qd U9IcnPsnJ47qdIwlV26 eLFVnlAubrW0taLiqqG 5cZjBcZnMyNFxxbFxwb SSgpqqmIAbwdoX5YUgv sgbuPLHbLRleG2xiUkQ cXWSxqBigTIhbe7YgMT ToDKIfOshpnwN0LRVSv 56wTOXkk7UgHXZfqQ5j jEFzYWtbreFolKG0DLy hdmUgYmVlbiBkZXZlbG 6hEFMnJW6wCFFufjNal f9xpzNaMUHbYKCoM3Vn cmlzdGljcyBkZXRlcm1 twjMcBDH0QKZAEC8UBS XyCZCig07wBLPngEoeg B1hwBHcngXcBDYqx4Np rX4znVSZTXIuP4lkYZ2 hMUldl1PvbWZxgDUnpC H7MFDmn0TgKhBtarNqp HCrqYLrV1QzlHubK9uf AEGlFYOwpoAnvJPhm1G fEDIlbXF3gOHzJR8NTn ZRv89oXSOmHIQLmrDuL URxtSawaYZ1kaO9lT2f LiBJZiBhcHBsaWNhYmx rCBIub733tm4zneL7BQ JjLLOfjgjhg0VaEQBnN FSusP94DGNmIQNbve4v evztmPFzctSuX9Zpbat 0lN1pRKJmQEeiKJRuCA ZzMjJcbGFuZzEwMzNca GljaFxmMVxkYmNoXGYx BWpkJ7dpFpXnUgUdVlu wYXJ9 [facility] 2023-02-28 22:41:45 Test Item Value Reference Range Interpretation Comments Materials Received (test o1wzaEPuZOErwSDhJuSw code = 9973) TBLrWESmg1fzGNGzdLHm ZzEwMzNcZnRuYmpcdWMx UNAvGyHgk5qkp695sSRe h5seLFOyLcM2hBNqVTDe lSQwE771NAYqASwxw0vh c3ElGJVyfIDjt6N8RRQR kkjnuXx8aQxrI44sc2U4 QmhkB3zaFMHlJJEzC4Ci HV6aCEEvHty1KRY3TIN9 BPFaKCCsF7SmKG4vFCIl bPQfLVs7t0ngwTopWPBm HHB8y9abGLuajhFgDD7v ec4qvNa2s4qwqrSfCEBd UKAovFKCOKReY5GfjHrw Th3fpCt2cHfcLlowXLR4 Fzd2KG3ada85iqh1xGqr XTVftjxzUqX6GHsrYIXn kamzRMi3PTpkEVEikIqy MFxtYXJncjcyMFxtYXJn gNX0XJKwnGTnB3JyZOGo LKhiWFOnvfg1AwLbDp1u mXCmcNwtEVksz7nyp2jk cKFxLly4AJUrPdImHmay LWrac1Nhu1qcOYNeye3i WYC3oMWsbIdoz8V6bTMu LYZkgRJteaChCYNihx23 cCJhfFPdaQOgvl8sklKx yRHmxSItJXW2qLBuxvNf YGKnoBNhHNQcKC3gqXHn QGDcmJ2puecaQOCwVcHf tbsoEDBmpFvmzmHrKn3e eCphXQZ7TXeuB4nowS2m PzN8PVswW0qdnP0gMUc3 RHjfpFE7BPPwqQ5uQI1b citgh9uxUlSxRE7jxcpz g6xcHzIhNW7sreh0h2fp JZM2THkeROFrIgQ0adT4 NDBcaGVhZGVyeTcyMFxm d107FBT5DaSeCBEpr2Dw D1WxoMffB32eoBcyP43y TQOvgDsnxF4vxMxxsE6x CmOlPxNcRIn3rk89SUu3 vpfrqZqbSFf9sbMjCQLp FKU2JLMuvVLuPYKlL5v4 esKqCDHpKWR7JGYtoENn CQCfU9z1tzRtNLA4MDm8 cnBhZGRmdDNcdHJwYWRk YjBcdHJwYWRkZmIzXHRy qNNzmHKziOGshN8hnBap NQJcuFXhiE3nTIX5VBTt cmgzMjBcdHJoZHJcbHRy un70YEZmofNvgKIxcWok kBDnJZY8BQKdSSXoORGn IUO8UWOyXjJdmzQuQMcu bGJyZHJiXGJyZHJzXGJy VHG1LVCzHiKdxwZgMZhq bGJyZHJsXGJyZHJzXGJy JFU6GROeDqQzvoMmYEyp bGJyZHJyXGJyZHJzXGJy IBC9USBeFbLlklJrCEmb bHBhZHQxMFxjbHBhZGZ0 Q4rkjJGvUCIgDCgwpKTs LZPgT0mfbLXpGAduEADf cGFkZmwzXGNscGFkYjBc L0wlLUCpBmSqJ9XrbGp1 MDAwXGNsdmVydGFsdFxj wZFyASM4GQPwTFZyXMLh JII2BKScCvHawbYuNMzu bGJyZHJiXGJyZHJzXGJy GAN6BKNfTnIbibLpSNkp bGJyZHJsXGJyZHJzXGJy PZK6AVTjIlRuzyPvRBwa bGJyZHJyXGJyZHJzXGJy WYV5NEEzQkUopzZaUWue bHBhZHQxMFxjbHBhZGZ0 C8qmvMRqDYEvFJctcKOq RJRqJ2wtqLNsQBhfQNLa cGFkZmwzXGNscGFkYjBc H1fjUIFtHkEgO9OwpKp1 NjAwXGNsdmVydGFsdFxj kAGjDWR9VGZvDAOzCZFz TDH7DSPrCnObkyHsTEbv bGJyZHJiXGJyZHJzXGJy PBX0WNIfXwUqkeJrEZmd bGJyZHJsXGJyZHJzXGJy BEC2LRDbVhSalrYaYVoo bGJyZHJyXGJyZHJzXGJy GPV5DMKiPcYvjwFwLVsw bHBhZHQxMFxjbHBhZGZ0 K1evuAFyBUZcRIykeBLq LGPfW2tqcWGxLUsdPDZy cGFkZmwzXGNscGFkYjBc K5iiAKKdJsQdM2TpgFk2 TtNoCBUylhLcxS10Xhrc f0XdKTGiWYY1MCbvLLih bFxwbGFpblxmMVxmczIw JFvqwvdvEUEcCRcdP1fz JaGjTLGixAugNPsyq4Py XGYxXGNmMlxmczIwXGIg HJFqJHRlxS6cJmuaE3Lt dK7eEVewLnkgU2onUCMr a1BqqV0uGWjxgTJrlxty MVxmczIwXGxhbmcxMDMz EHmpW2qoNxDwDCMedRue SHgup7LmFVTuRMKpZscd yoOhIIp1amCtDYUaaBag nOXxSXtnklHtqZeiy3Wb riHcwJolFDRlZSf8nkKo sfqfuRy9kNVqmNgkALRt uItsaJ0jDgKaViZiVVln bGFpblxmMVxmczIwXGxh clnuSKYqNBndD0maBpHc BILstLebVDwxg4AuMMLk XXKnDgcmcrXaMCMtS29b bGVjdGVkXHBsYWluXGYx XGZzMjBcbGFuZzEwMzNc aGljaFxmMVxkYmNoXGYx ULeyU7jfUmMmW4QuDXZs DoGosZKxZ1pxC3NdvUaf YXJkXGludGJsXHNzcGFy DZI4tSOhreZfcEZxlUWj SISiPUjhEUM3kDOqrcan lHSdpvdlBXwsruI2GCJu YWluXGYxXGZzMjBcbGFu ZzEwMzNcaGljaFxmMVxk QrTrRKYaYFxjZ3qkVgNb I8WdDCMdPaMaGiRFBOSp aXZlZFxwbGFpblxmMVxm czIwXGxhbmcxMDMzXGhp L7lyDrUoVUHlyMgzCEfo r2TuJHPtSNZzXvlihaTm QRf4zsJjOFWavLtfvI75 Bnvciy27RFNei1bvIFCw M2FqbRQqQYBgwWOyTTua MDhcdHJwYWRkZmwzXHRy cGFkZHIxMDhcdHJwYWRk ZnIzXHRycGFkZHQwXHRy eEWdOVF3F6w6kcPaSOBb HQz3poNeCOTkQsRsqLOa TLW1HQr4UqzqwrU9lQXb L6v5KqrlvuWaSBhslHRi jg42ZHMtbdElsTKsdLxs hGNfCMQ3SKAkWLLxSSXi RUR2BIZaCkNnxdGlMZha bGJyZHJiXGJyZHJzXGJy ODV5LUVtGdIbagZePQpo bGJyZHJsXGJyZHJzXGJy HMU5AKLxJmZbgpVyYZbn bGJyZHJyXGJyZHJzXGJy CLV7WZVlUxSjaeEiLOal bHBhZHQxMFxjbHBhZGZ0 R7pozZIaLBJkFXsckTQb SYEsF8tcnQNiFLuaWIFs cGFkZmwzXGNscGFkYjBc M5gaRQDpNsDbB7TecUd1 MDAwXGNsdmVydGFsdFxj nXWzROV2QKFhVSCzTZDm WYG1LXVbTaCwtcTpIQgd bGJyZHJiXGJyZHJzXGJy OLQ1VPUcWmZobbVsASnv bGJyZHJsXGJyZHJzXGJy WRD9AXUeChLvfgHlVOpc bGJyZHJyXGJyZHJzXGJy SIY7HEIlRnHugzBcVAnx bHBhZHQxMFxjbHBhZGZ0 G2blsKHvHRBnMBfbvQCh PBIuT0tblJMtOIwqUNOs cGFkZmwzXGNscGFkYjBc A2flIZMuXbPpS9RqeIl7 NjAwXGNsdmVydGFsdFxj nHNhFVO3ZZZoRABlIOIn TNY2GJRgFcGpbvVeBZkq bGJyZHJiXGJyZHJzXGJy KLM4TYPaOrWisrOcSVma bGJyZHJsXGJyZHJzXGJy XXM3CNZlFhCmenGaHVfd bGJyZHJyXGJyZHJzXGJy TTV7QYExWfNtreZiANgt bHBhZHQxMFxjbHBhZGZ0 Q0jhqKIoMEVyKOwlaWLc LFCyK6inaTGcEFeoALBt cGFkZmwzXGNscGFkYjBc M5agCKApQhMzZ2JaaZt3 TlElAZVbllIjgZ26Apxk e3MiTAAcOTS5QTppQIxn bFxwbGFpblxmMFxmczI0 XHBsYWluXGYxXGZzMjBc bGFuZzEwMzNcaGljaFxm BOnoXgMjFFArKDmwZ2vr WaGaA4EnRNGmBwZrZI0g AXmgHy6hWQHbRIbqCUPW OifcOKIXCI3FR8EnEUia VVNTXHBsYWluXGYxXGZz MjBcbGFuZzEwMzNcaGlj aFxmMVxkYmNoXGYxXGxv Y3bkRdSwJ0JfWUPoOkCt uUUuQ6duP8WywVdpKGFa XGludGJsXHNzcGFyYWF1 mJOgqtNlpRdxhFbboV0w ZjBcZnMyNFxwbGFpblxm MVxmczIwXGxhbmcxMDMz XCeqH9lsMrXtSGKccMnr CBuzx0GzHFEmICGcRaxq phSxARKdHhGwTrVyZ6ue bGFpblxmMVxmczIwXGxh fglqDLNqLCxgI7npLlSl LQRdmUnmEPuep8ChYYTc IEMkSqeauwJoBMg5oiPy XGNlbGxccGFyZFxpbnRi vJmkm4RqlpLtePbsNZPl XHFsXHBsYWluXGYwXGZz GhHjsKwelF6sOvLjKyLt OFbbKM9gTGZvO1rdyZXn YWTsANVwD3dhLqJguT2d aFxmMVxjZjJcZnMyMCAz QrE0AmGkTyEbaUdvgG6y CxFbIgUqURnpZV4wYPOc M6evzSCjITRqWKGtD3jt UoWswX2zcRrjUQdhRtIr ZnMyMFxsdHJjaFxjZWxs OMpbsJRgUDRwv5dvBEPm XOKwtCPsCPY1fWIkyzKg gYtzjImdwK9mHxWuHyFe NFxwbGFpblxmMVxmczIw TRrucnrtMIGgQVkiR4wz WjGeROOgbWnaEDjqk0Gm XGYxXGZzMjBccGFyfQ== Diagnosis (test code = d6vqsWOdMLFawGYfFMFp 34) LqcrdjEgDLSgbEThO6Vi uhvoVTmyZN6zLA4oaIeh fZFhjYGaGWTiBnDtf3bq k922dDOln3tzSRDSuxii cGv8hIfiV93rl9V7Utzu N4qgGESbVJkqQYFhPLid hMNeBUp6KQEojHWwcuHi EsDrFXGdkWNjnKA1TMLt JW3eorseXFkgSWrzPCLp fgG8ZRMenHJlS6JaHTJs ZZ3cwiliMHF5QOomYMGc VNG7BoGqVWXcf3Lyozn7 MjBccGFyZFxwbGFpblxm czIwXGNmMSBTZXZlbiB1 rnW3RYpkQKEtv4saNJYd RSyBHPCrFDFmUxV2ATTy n1kdXHM6ACFcm74uAP2t Mi4zURCwDFkbiWZkZYDz VMmsJLCeoOn3HeJgpQkp VaEwPCIqa9VbKAp3fvzp iASwlbfoUvanfPH3PaCh nKJcLFjoZbL4DFpkkT08 LtGllTvaAsC5XDTFSaQN E2hRZSKPD15KKCotSZrI UqGRRK8IJIIXWAKeY2KR V9dSS86HGzUyZ1QKBLNR SY9QPyGnVZAlunasXVQa cGFyfQ== Comment (test code = j7rggLElBLTssAUuQIGa 9835) LkygnzGgIMTtuYOvA9Mx kmkaYWbdCS6sSN1amPgy nUOvjWFjRUHtCuSpe5fp j127tCWdv5jvLCFUhgom bHf9gGtoN16ht7J8Cjtl A46caCKtRLJ2KSXvNDMa rGErRKCiZWM6ELKrwPIq C1fzLPJuQS7uozheKGao PHdyKVEucWM9DKPmzQJk O3LaPXQcIGhiFUNvvge3 AyArSx9oaVCwkHdtLWdw YXJkXHBsYWluXGZzMjAg AU8ypT8tvPybeU8gpDRl pNMejABffDOpimGqlX7m ZeJlmAiqwzOljONfs3kz rAK4aBBcpIRuv0CtpJR3 OGQxNDEyQEUpqyNowi3g ZCBvbiBTMjMtMDExMDA4 MmQTnAJns5Tks7KpWFCu zGNoDZYgRPKjgJ8hgB7i cGFyXHBhcn0= Biomarker Block(s) (test v5ntrYCiOLSrjPVeTXOr code = 9841) QimjluGuZYBbvJAuN2Wc jepzXUmzVN2nRJ4viHow vTNufAHfDQUgWkJwo8yk z088kIIck1yiXLQQwrmd rEq6cMygI75kj7V4Unxx J20puBLkTBK5KAHrSYKh uDTcLSHcBZP7JROdqPLc X7ovNAAfZY7ytjzjAUfl PTjhQXUihIU1IMEeoHHl N7YaIAFhNJqtZVWxazw1 VpKhUp5sbIDfjNyhBXzg YXJkXHBsYWluXGZzMjAg JNQyh4R4WNVcCUPsbe1= Disclaimer (test code = d3mdeWZcBFKdfVUiNrJk 9844) WWSiTWMjr9veYVLmrZCc ZzEwMzNcZnRuYmpcdWMx OHBjAsKhe1ykc360nXQb h9hgAOQaFxH1cXLnDIBu yAJkH385KOUtBEboq2oe j6PsPELxcWGgd0H6KNPX fglgjJu8dOsqL99vs7S5 CqslL7gpNSPnCGQdR2Ly HQ4wPOEdOdy5HYD7ZBD7 INAiSWIjF5RkNX9dOUGq sGNyOAe9t0nrwTidVGWu ETE2q5gsSEdhqfNaEF0s gb7otJr1d9poujJaACRn JJVfoSMBEBIuK6MyfUoy Pq4hhVs0ySlkBpcnGKJ1 Mru6QA3vrd16ztp9cMwd NOElfdflJuI4AQnlVKAp alauKKd3GLrgAEZqeZG3 QNUkgGPhN5YoCBKlEQ2s ehg5QWD9FWpjVGWyRpW0 NDBcaGVhZGVyeTcyMFxm o512DUC9MkWfCS4jN4Bw o8N6oC6jnOPkGTGufTLa NoYhOMYssx1avNTdBWsi s1WlZLI1twW8iQKrwNJb CKJcMT06Lotzz4XlAdaf XTN8TASlsvMnh2Ahl2we IkHtaqBoE7jpU8HnVGWq RHAtKCQmBwFaarQcr9Rq n9UgrVJsiQh3d6udLCWv DTGslFmjg9ylHQI8UDAl E4L4dPQdt3osAXxpKKYw tAM0jdW3ADIwlHTiB9Bf pH5yKINpNT5qslj7d4vo DGB9YEkbVATlBdV6lpW5 NDBcaGVhZGVyeTcyMFxm p930LJM1WoXyOJEac7Wp N0VarYxsL57lbVgnR24d XDVeuHsxtY4qoIztpO5f ZjBcZnMyNFxxbFxwbGFp jjflHWoatiO9NFywryrm VCXwSPitO1rxGpFkCYJs ePwfHMzvc5WmMVOcQDPy JxbdrrY0JIBQw00xDSCk g4JmYZJjaR7vpFPnIEms fmZdgNE8QEfxgsWuLhKi msHoSBQheN0bYAZvDU8t ZMExetQqyc3nzyNsGLRi HQRfZ5PgkuwubNtirfAe ILKqvj5bodBaUXJ1OMEM PR1XUVYuAJNhm47fXSOp sLjqzB6oaFZsnuYaJMFh s5BftO6jnFYWVXPrB0gu IZ9eEOima0SmqWTkzPGu jUQ2PAPak4AnSgIxaaOm yXVcmZQeX6AduQvdW1ok SQKnHBLssjVxhJXdj5Iq WRUblIP7zBMzYJ1BLaMY n31jVYGsSRQTzjVsBPPk lBaenCI3yeV6vB8lTbFZ ZiBhcHBsaWNhYmxlLCBj p765wa6cgcY2WJAyNEDt tnluq0EfLJBtUGGfiD57 ARKbJIFzkx2czzolwXFz yqBuH9Tarxn6pD0hEHZw YWluXGYxXGZzMjJcbGFu ZzEwMzNcaGljaFxmMVxk DdBcIRArDDxkR5ncUeQc ZnMyMlxwYXJ9 [facility] IrvingP[facility] Glucose [id number] 16:48:32 Test Item Value Reference Range Interpretation Comments POC Glucose (test 127 mg/dL 70-99 H Capillary blood code = 5651) samples, e.g. obtained by fingerstick, ma y have inaccurate resu lts in patients with decreased perip heral blood flow. All POC Glucose screen test results, includ ing critical values , must be interpreted and evaluated in th e context of the patients clinical findi ngs. It is recommend ed to confirm any questionable te st results by core lab methodology. Me thod description: Al l results are jyoti sured using Electrochemistr y test methodology. Th e glucose in the sample mixes with the reagents on the test strip. The reac tion produces an ness ctric current. The am ount of current prod uced is proportional to the glucose concentration i n the blood. PO Sample Type (test Venous code = 9554) Performing Lab (test MDA Main Main Ca mpus code = 96214) [facility] Cli nical Lab, [address], [place] [address]; Fish Trapper: Paris Kahn MD; Waived Point of Care Testing - Dena cagle MD Lab Interpretation Abnormal (test code = 89092-3) [facility] Irving[facility] NGS Blood [id number] 18:40:20 Test Item Value Reference Range Interpretation Comments Molecular Diagnostics (Received) (test Yes code = 8400) [facility] Irving[facility] NRAS Mutation Analysis Collection, [id number] 18:37:14 Test Item Value Reference Range Interpretation Comments Molecular Diagnostics (Received) (test Yes code = 8400) [facility] BRAF Mutation Analysis Collection, [id number] 18:37:13 Test Item Value Reference Range Interpretation Comments Molecular Diagnostics (Received) (test Yes code = 8400) [facility] IrvingLB APC Mutation Analysis Collection, [id number] 18:37:12 Test Item Value Reference Range Interpretation Comments Molecular Diagnostics (Received) (test Yes code = 8400) [facility] IrvingCEA2023-03-16 17:44:54 Test Item Value Reference Interpretation Comments Range CEA (test code = 6.9 ng/mL <=3.8 H Reference R anges:Smoker: 0.0 2038-6) - 5.5Non-Smoker : 0.0 - 3.8This test is measured by electrochemilum inescence immunoassay on Jordyn Chrissy immunoassay aranza lyzers. Results obtaine d in different metho ds are not interchangeable . Lab Interpretation Abnormal (test code = 02942-3) [facility] IrvingLDH2023-03-16 17:32:33 Test Item Value Reference Range Interpretation Comments LDH (test code = 629 U/L 135-225 H Results gre ater than 87174-7) 1651 U/L may no t be reliable due to matrix effect w ith extended diluti on as it exceeds the pool hand's recommended samano it. Caution should be exercised when interpreting bearden ch values and done in conjunction wit h clinical contex t. Lab Interpretation (test Abnormal code = 37861-8) [facility] IrvingFractionated [id number] 17:31:36 Test Item Value Reference Range Interpretation Comments Bili Total (test 0.9 mg/dL <=1.2 Indocyanine Green (ICG) code = 1974-) may cause fal sely elevated biliru bin results. Total and direct bilirubin must not be measured from s amples containing indo cyanine green. False el evation of total bilirubin can be seen in patient s with IgG concentrations above 28 g/L. Bili Direct (test 0.3 mg/dL <=0.3 Indocyanin e Green (ICG) code = 1967-) may cause fal sely elevated biliru bin results. Total and direct bilirubin must not be measured from s amples containing indo cyanine green. Bili Indirect (test 0.6 mg/dL 0.0-0.9 code = 1970-12) [facility] IrvingGlomerular Filtration Rate 2023-02-14 17:31:35 Test Item Value Reference Range Interpretation Comments eGFR (test code = 85 See_Comment The eGFRcr [place] [address]6416-4) the 2020 CKD-EP I creatinine equation using creatinine, patient's age, and sex for adults 18 years of age and older. Other fa ctors, especially musc le mass, may affect accuracy and need to be considered.A ccording to the Kidney Dise ase: Improving Global Outcomes (KDIGO) CKD Work Group 2012 Clinical Practice Guidel ine, chronic kidney disease (CKD) is defined as the abnormalities of kidney struc ture or function, prese nt for more than 3 months, with implications fo r health. CKD should be class ified by cause, GFR elenita gory, and albuminuria cat egory. KDIGO guidelines prov abdulaziz the following GFR c ategoriesStage Description GFR mL/min/1.73 m2G1* Normal or high >= 90G2* Mildly decrease d 60-89G3a Mildly to moder ately decreased 45-59 G3b Moderately to severely dec reased 30-44G4 Severely decrea sed 15-29G5 Kidney failure <15*In the absence of evid ence of kidney damage, neither G1 nor G2 fulfill criteri a for CKD. [Automated mess age] The system which NUOFFER nerated this result transmit montrell reference range: >=60 mL/ min/1.73 sq. m. The referenc e range was not used to int erpret this result as nicole l/abnormal. [facility] IrvingMagnesium [id number] 17:31:34 Test Item Value Reference Range Interpretation Comments Magnesium (test code = 64394-3) 1.7 mg/dL 1.6-2.6 [facility] IrvingAlkaline [id number] 17:31:33 Test Item Value Reference Range Interpretation Comments Alk Phos (test code = 6768-6) 244 U/L 40-129 H Lab Interpretation (test code = Abnormal 80418-0) [facility] IrvingAlbumin [id number] 17:31:32 Test Item Value Reference Range Interpretation Comments Albumin Lvl (test code 3.5 See_Comment [Aut omated message] The = 1751-7) system which NUOFFER nerated this result tra nsmitted reference range : 3.5 - 5.2 gm/dL. The refe rence range was not used to interpret this result as normal/abnormal . [facility] IrvingAspartate Aminotransferase 2023-02-14 17:31:31 Test Item Value Reference Range Interpretation Comments AST (test code = 1920-8) 49 U/L <=40 H Lab Interpretation (test code = Abnormal 52399-9) [facility] IrvingElectrolyte [id number] 17:31:30 Test Item Value Reference Range Interpretation Comments Sodium Lvl (test code = 137 See_Comment [Au tomated message] 8031-2) The system Desk generated this result transmitted ref erence range: 136 - 14 5 mEq/L. The refe rence range was not u sed to interpret this result as normal/abnor mal. Potassium Lvl (test code 3.5 See_Comment [A utomated message] = 1123-3) The system Desk generated this result transmitted ref erence range: 3.5 - 5. 1 mEq/L. The refe rence range was not u sed to interpret this result as normal/abnor mal. Chloride (test code = 95 See_Comment L [Auto mated message] 1735-0) The system Desk generated this result transmitted ref erence range: 98 - 107 mEq/L. The refe rence range was not u sed to interpret this result as normal/abnor mal. CO2 (test code = 2027-9) 31 See_Comment H [A utomated message] The system Desk generated this result transmitted ref erence range: 22 - 29 mEq/L. The reference r maritza was not used to interpret this result as normal/abnor mal. Anion Gap (test code = 11 See_Comment [Aut omated message] 81558-8) The system Desk generated this result transmitted ref erence range: 4 - 14 m Eq/L. The reference r maritza was not used to interpret this result as normal/abnor mal. Lab Interpretation (test Abnormal code = 57031-5) [facility].Serum [id number] 17:31:29 Test Item Value Reference Range Interpretation Comments Creatinine (test code = 2160-0) 0.96 mg/dL 0.67-1.17 [facility] IrvingTotal [id number] 17:31:27 Test Item Value Reference Range Interpretation Comments Total Protein (test code = 2885-2) 7.4 g/dL 6.4-8.3 [facility] IrvingPhosphorus [id number] 17:31:26 Test Item Value Reference Range Interpretation Comments Phosphorus (test code = 2777-1) 3.3 mg/dL 2.5-4.5 [facility] IrvingCalcium [id number] 17:31:25 Test Item Value Reference Range Interpretation Comments Calcium Lvl (test code = 85762-8) 9.8 mg/dL 8.4-10.2 [facility] IrvingALT2023-03-16 17:31:24 Test Item Value Reference Range Interpretation Comments ALT (test code = 1742-6) 61 U/L <=41 H Lab Interpretation (test code = Abnormal 13475-6) [facility] IrvingBUN2023-03-16 17:31:23 Test Item Value Reference Range Interpretation Comments BUN (test code = 3094-0) 25 mg/dL 6-23 H Lab Interpretation (test code = Abnormal 92511-7) [facility] IrvingGlucose [id number] 17:31:22 Test Item Value Reference Range Interpretation Comments Glucose Level (test code 124 mg/dL 70-99 H Eff ective 06/27/16, = 2345-7) the glucose reference inter vals have been updat ed based on [place] an Diabetes Associ ation guidelines (Standards of Medical Care in Diabetes 2016. Diabetes Care 2 016; 39: S13-S22).Fa sting blood glucose:Normal: 70-99 mg/dLImpa ired fasting glucose (increased risk for diabetes or pre-diabetes): 100-125 mg/dLDiabetes mellitus: >/=12 6 mg/dL Random bl ood glucose:Normal: 70-199 mg/dLNot e: Random glucose >100 mg/dL is associ ated with increased risk for diabetes Lab Interpretation (test Abnormal code = 05225-5) [facility] IrvingDifferential2023-03-16 16:54:15 Test Item Value Reference Range Interpretation Comments Neutrophil % (test code = 81.1 % 42.0-66.0 H 770-8) Lymphocyte % (test code = 6.8 % 24.0-44.0 L 736-9) Monocyte % (test code = 8.3 % 2.0-7.0 H 5905-5) Eosinophil % (test code = 1.3 % 1.0-4.0 713-8) Basophil % (test code = 0.3 % 0.0-1.0 706-2) IGRE % (test code = 2.2 % 0.0-0.4 H IGRE % c ount 40756-6) includes Metamyelocytes, Myelocytes, and Promyelocytes. Neutrophil Abs (test code 5.17 K/uL 1.70-7.30 = 751-8) Lymphocyte Abs (test code 0.43 K/uL 1.00-4.80 L = 731-0) Monocyte Abs (test code = 0.53 K/uL 0.08-0.70 742-7) Eosinophil Abs (test code 0.08 K/uL 0.04-0.40 = 711-2) Basophil Abs (test code = 0.02 K/uL 0.00-0.10 704-7) IG Abs (test code = 0.14 K/uL 0.00-0.04 H 47539-8) Lab Interpretation (test Abnormal code = 76798-1) [facility] [place].[id number] 16:54:08 Test Item Value Reference Range Interpretation Comments WBC (test code = 6.4 K/uL 4.0-11.0 6690-2) RBC (test code = 789-8) 4.16 See_Comment L [Au tomated message] The system Desk generated this result transmitted ref erence range: 4.50 - 6 .00 M/uL. The refer ence range was not u sed to interpret this result as normal/abnor mal. Hgb (test code = 718-7) 11.9 See_Comment L [Au tomated message] The system Desk generated this result transmitted ref erence range: 14.0 - 1 8.0 gm/dL. The refe rence range was not u sed to interpret this result as normal/abnor mal. Hct (test code = 36.1 % 40.0-54.0 L 4544-3) MCV (test code = 787-2) 87 fL 82-98 MCH (test code = 785-6) 28.6 pg 27.0-31.0 MCHC (test code = 33.0 See_Comment [Automate d message] 786-4) The system Desk generated this result transmitted ref erence range: 31.0 - 3 6.0 gm/dL. The refe rence range was not u sed to interpret this result as normal/abnor mal. RDW-SD (test code = 41.4 fL 35.1-46.3 77258-3) RDW-CV (test code = 13.2 % 12.0-15.5 788-0) Platelet count (test 400 K/uL 140-440 code = 777-3) MPV (test code = 9.6 fL 4.0-10.4 05572-2) INRBC (test code = 0.0 % <=0.0 The INRBC (instrument 43833-9) NRBC) value ref lects the enumeration of nucleated red b lood cells contained in a 200uL sampleof whole blood analyzed by the instrument. Thi s value maydiffer from the NRBC value repo rted in a manual differential,wh ich is based on a 100 cell differential. Lab Interpretation Abnormal (test code = 73593-9) [facility] [place]
--- NOTE | 2023-10-11 08:30 | RAD REPORT ---
EXAM DESCRIPTION: CT - Head Brain Wo Cont - 10/11/2023 8:16 am CLINICAL HISTORY: syncope, head injury Headache, trauma COMPARISON: Facial Bones W/ Mpr dated 08/27/2023; Head Brain Wo Cont dated 06/18/2019 TECHNIQUE: All CT scans are performed using dose optimization technique as appropriate and may inclu de automated exposure control or mA/KV adjustment according to patient size. FINDINGS: No intracranial hemorrhage, hydrocephalus or extra-axial fluid collection.Mild generalized brain atrophy is present with mild periventricular and deep white matter chronic microvascular [place] changes.No areas of brain edema or evidence of midline shift. The paranasal sinuses and mastoids are clear. The calvarium is intact. IMPRESSION: No acute intracranial abnormality.
[2023-10-11] MEDS ORDERED: NA CHLORIDE 0.9% 1,000 ML ONE ×3 (08:35→13:15)
--- NOTE | 2023-10-11 08:45 | RAD REPORT ---
EXAM DESCRIPTION: RAD - Chest Single View - 10/11/2023 8:23 am CLINICAL HISTORY: COUGH Chest pain. COMPARISON: Chest Single View dated 08/27/2023; Chest Single View dated 02/06/2023; Chest Single View d ated 06/18/2019; CHEST PA AND LAT 2 VIEW dated 10/02/2013 FINDINGS: Portable technique limits examination quality. Moderate bilateral pulmonary opacities are present, slightly greater on the left likely representing pneumonia. The heart is upper limit normal in size. No displaced fractures.Right-sided venous cathete r its tip in the SVC. No displaced rib fractures.
[2023-10-11 08:58] LABS: Absolute Lymphocytes (CBC) 0.3 K/uL (0.7-4.9); Hematocrit 18.3 % (39.6-49.0); Lymphocytes % 9.1 % (15.3-44.8); MCV 89.2 fL (80-100); MPV 9.3 fL (7.6-11.3); Platelets 72 thou/uL (152-406); RBC Red Blood Cell Count 2.06 M/uL (4.33-5.43)
[2023-10-11 09:05] LABS: Protime INR 1.38
[2023-10-11] MEDS ORDERED: AZITHROMYCIN 500 MG INJ IVPB ONE (09:14)
[2023-10-11] MEDS ORDERED: CEFTRIAXONE 1000 MG/VIAL ONE (09:14)
[2023-10-11] MEDS ORDERED: NA CHLORIDE 0.9% 250 ML ONE ×3 (09:14→12:42)
[2023-10-11 09:18] LABS: Albumin 1.9 g/dL (3.4-5.0); Bilirubin Direct 0.2 mg/dL (0-0.2); Bilirubin Indirect, Calculated 0.3 mg/dL (0.2-0.8); Bilirubin Total 0.5 mg/dL (0.2-1.0); Magnesium 2.1 mg/dL (1.6-2.4); Potassium 3.6 mEq/L (3.5-5.1); Protein, Total 5.6 g/dL (6.4-8.2); Troponin High Sensitivity 14.2 pg/mL (<58.9)
--- NOTE | 2023-10-11 09:18 | EDPHYS ---
Physician Documentation [facility] Name: Luiz Wyatt Age: 73 yrs Sex: Male : 1950 Arrival Date: 10/11/2023 Time: 07:43 Bed 2 Private MD: ED Physician Perry Velasco HPI: 10/11 08:11 This 73 yrs old Male presents to ER via Wheelchair with complaints of General Weakness, rn Fall Injury, Cough. 08:11 Details of fall: The patient fell from an upright position. Onset: The symptoms/episode rn began/occurred 1 week(s) ago. Associated injuries: The patient sustained injury to the head. Severity of symptoms: At their worst the symptoms were moderate, in the emergency department the symptoms are unchanged. The patient has experienced similar episodes in the past. Patient reports has stage IV esophageal cancer, history of anemia and requiring blood transfusions. States over the last week has had near syncope and possible syncope episodes. Reports generalized weakness and malaise. Denies any hematemesis or GI bleeding recently currently but states intermittent black stools for a long time. Reports decreased p.o. intake. Sees Dr. Zaidi. Has had esophageal dilatation in the past. No fever, does not feel ill but has had a new cough recently.. Historical: - Allergies: 08:07 No Known Allergies; jl7 - Home Meds: 08:07 folfox chemo [Active]; jl7 - PMHx: 08:07 diabetes mellitus; esophageal cancer; Hypertension; jl7 - PSHx: 08:07 hernia repair; jl7 - Immunization history:: Adult Immunizations unknown. - Social history:: Smoking status: Patient denies any tobacco usage or history of. - Family history:: not pertinent. - Hospitalizations: : No recent hospitalization is reported. ROS: 08:11 Constitutional: Negative for fever, chills, and weight loss, Eyes: Negative for injury, rn pain, redness, and discharge, Neck: Negative for injury, pain, and swelling, Cardiovascular: Negative for chest pain, palpitations, and edema, Respiratory: Positive for cough Abdomen/GI: Negative for abdominal pain, nausea, vomiting, diarrhea, and constipation, MS/Extremity: Negative for injury and deformity, Skin: Negative for injury, rash, and discoloration, Neuro: Positive for generalized weakness and head injury Exam: 08:11 Constitutional: This is a well developed, well nourished patient who is awake, alert, rn and in no acute distress. Head/Face: Small abrasion above the left brow, no laceration or active bleeding, no depression Eyes: Pupils equal round and reactive to light, extra-ocular motions intact. ENT: Dry mucous membranes Cardiovascular: Regular rate and rhythm. No pulse deficits. Respiratory: Mild tachypnea, no retractions or wheezing Abdomen/GI: Soft, nontender Skin: Warm, dry MS/ Extremity: Pulses equal, no cyanosis. Neuro: Awake and alert, GCS 15, 4/5 strength throughout Vital Signs: 08:05 BP 89 / 55; Pulse 95; Resp 20; Temp 98.2; Pulse Ox 95% ; Weight 72.57 kg; Height 5 ft. jl7 10 in. ; Pain 0/10; 08:35 BP 95 / 63; Pulse 90; Resp 18; Pulse Ox 95% on R/A; tm6 09:51 BP 99 / 54; Pulse 88; Resp 18; Pulse Ox 96% on R/A; ld1 10:30 BP 95 / 63; Pulse 83; Resp 16; Temp 97.5(TE); Pulse Ox 96% on R/A; ld1 12:42 BP 96 / 63; Pulse 82; Resp 15; Pulse Ox 97% on R/A; ld1 12:50 BP 85 / 73; Pulse 80; Resp 22; Pulse Ox 99% on R/A; ld1 12:52 BP 81 / 55; Pulse 84; Resp 26; Pulse Ox 96% on R/A; ld1 13:15 BP 91 / 54; Pulse 77; Resp 20; Pulse Ox 98% ; ld1 13:20 BP 91 / 59; Pulse 76; Resp 20; Pulse Ox 100% on R/A; ld1 08:05 Body Mass Index 22.96 (72.57 kg, 177.8 cm) jl7 08:05 Pain Scale: Adult jl7 MDM: 07:47 Patient medically screened. rn 09:15 Differential diagnosis: Pneumonia, flu, dehydration, electrolyte disorder, renal rn failure, anemia, GI bleed. Data reviewed: vital signs, nurses notes, lab test result(s), EKG, radiologic studies, plain films, and as a result, I will admit patient. Consideration of Admission/Observation Patient was admitted/placed on observation. Escalation of care including admission/observation considered. Management of patient was discussed with the following: Hospitalist: Will admit patient for further management. I considered the following discharge prescriptions or medication management in the emergency department Medications were administered in the Emergency Department. See MAR. Independent interpretation of the following test(s) in the Emergency Department EKG: See my EKG interpretation above X-Ray: My interpretation is Chest x-ray images show bilateral infiltrates per my interpretation. Care significantly affected by the following chronic conditions: Diabetes, Hypertension, Stage IV cancer. Counseling: I had a detailed discussion with the patient and/or guardian regarding the historical points, exam findings, and any diagnostic results supporting the discharge/admit diagnosis, lab results, radiology results, the need for further work-up and treatment in the hospital. Response to treatment: the patient's symptoms have mildly improved after treatment, and as a result, I will admit patient. 10:52 ED course: Consulted with Dr. Roberts, as he is patient's GI doctor and has scoped him rn multiple times, he requests transfer for higher level of care as he believes patient requires esophageal stent as it is the likely source of his upper GI bleed and also does not have other medication to stop his bleeding. Initiated transfer [facility] as that is where he was taken care of last upper GI bleed.. 11:40 ED course: I personally spent 35 minutes engaged in work directly related to the rn individual patient's care. This does not include any time spent performing procedures. The patient has been deemed critically ill because of active GI bleed requiring resuscitation and blood transfusion for hypotension, pneumonia, and transfer for higher level of care.. 13:01 ED course: Lactate normal. Blood pressure still low. Will give 30/kg bolus total and rn reassess volume status. Blood has been initiated as well, almost getting second unit started.. 14:14 ED course: Patient's blood pressure at time of transfer and EMS pickup was up to 99 rn systolic with a normal MAP. Second unit of blood was going. Hypotension improved, sepsis reevaluation complete. 10/11 08:05 Order name: Type And Screen rn 10/11 08:04 Order name: Basic Metabolic Panel; Complete Time: 09:57 rn 10/11 08:04 Order name: CBC with Diff; Complete Time: 10:47 rn 10/11 08:04 Order name: Hepatic Function; Complete Time: 09:57 rn 10/11 08:04 Order name: Magnesium; Complete Time: 09:57 rn 10/11 08:04 Order name: Protime (+inr); Complete Time: 09:09 rn 10/11 08:04 Order name: Ptt, Activated; Complete Time: 09:09 10/11 08:04 Order name: Troponin High Sensitivity; Complete Time: 09:57 rn 10/11 08:04 Order name: Lactate w/ 2H reflex if indic.; Complete Time: 09:57 rn 10/11 08:04 Order name: Blood Culture Adult (2) rn 10/11 08:05 Order name: Flu; Complete Time: 09:57 10/11 08:05 Order name: SARS RAPID; Complete Time: 09:57 10/11 09:24 Order name: Packed RBC Leukored [facility] 10/11 10:06 Order name: Manual Differential; Complete Time: 10:47 EDNC 10/11 08:04 Order name: Chest Single View XRAY; Complete Time: 08:45 10/11 08:05 Order name: CT Head Brain wo Cont; Complete Time: 08:45 rn 10/11 08:04 Order name: EKG; Complete Time: 08:05 10/11 09:24 Order name: EKG Electrocardiogram [facility] 10/11 09:41 Order name: CONS Physician Consult [facility] 10/11 08:04 Order name: Cardiac monitoring; Complete Time: 08:28 10/11 08:04 Order name: EKG - Nurse/Tech; Complete Time: 08:35 rn 10/11 08:04 Order name: IV Saline Lock; Complete Time: 08:58 rn 10/11 08:04 Order name: Labs collected and sent; Complete Time: 08:58 rn 10/11 08:04 Order name: O2 Per Protocol; Complete Time: 08:28 rn 10/11 08:04 Order name: O2 Sat Monitoring; Complete Time: 08:28 rn Administered Medications: 08:41 Drug: NS 0.9% IV 1000 ml IV at 1000 ml once Route: IV; Rate: 1000 ml; Site: right hb antecubital; 09:12 Drug: Rocephin IV 1 grams IV at calculated rate once; Given slow IV push per pharmacy tm6 instructions Route: IV; Rate: calculated rate; Site: right antecubital; 09:12 Drug: Zithromax IVPB 500 mg IVPB once over 1 hrs; mix in 250 mL NS Route: IVPB; Infused tm6 Over: 1 hrs; Site: right antecubital; 11:50 Drug: NS 0.9% IV 500 ml IV at bolus once Route: IV; Rate: bolus; Site: right tm6 antecubital; 13:00 Drug: NS 0.9% IV (30 ml/kg) 30 ml/kg IV at bolus once; Sepsis Protocol, subtract ld1 already given fluids Route: IV; Rate: bolus; Site: right antecubital; Disposition Summary: 10/11/23 11:42 Transfer Ordered Notes: Transfer Location: [facility] rn Reason: Higher level of care rn Condition: Stable(10/11/23 11:42) rn Problem: new(10/11/23 11:42) rn Symptoms: have improved(10/11/23 11:42) rn Accepting Physician: Dr. Teresa Holt(10/11/23 13:34) tm6 Diagnosis - GI Bleed/ Gastrointestinal hemorrhage, unspecified rn - Pneumonia, unspecified organism(10/11/23 11:42) rn - Anemia, unspecified(10/11/23 11:42) rn Forms: - Medication Reconciliation Form rn - SBAR form rn allergy time excluding procedures: 11:40 Critical care time: Bedside Care: 35 minutes. Total time: 35 minutes rn Signatures: Dispatcher [employer] Perry Kirby MD MD rn Baxter, Heather, RN RN Divya Noriega RN RN jl7 Carrie Kincaid Lauren RN RN ld1 Andie Soliman, RN RN tm6 Corrections: (The following items were deleted from the chart) 10:00 09:17 Telemetry/MedSurg (Inpatient) rn eb 10:00 09:17 rn eb 11:41 09:17 Inpatient Admission rn rn 11:41 09:17 Pako Rutledge rn rn 11:41 09:17 Stable rn rn 11:41 09:17 new rn rn 11:41 09:17 have improved rn rn 11:41 09:17 Standard rn rn 11:41 09:17 Pneumonia, unspecified organism rn rn 11:41 09:17 Anemia, unspecified rn rn 09:17 Dehydration rn rn : 10:00 [facility] ER HOLD eb rn 10:00 ERHOLD- eb rn 11:42 Dr. brooks eb 13:34 11:57 Dr. Teresa putnam tm6
--- NOTE | 2023-10-11 09:18 | ER ---
Nurse's Notes [facility] Name: Luiz Wyatt Age: 73 yrs Sex: Male : 1950 Arrival Date: 10/11/2023 Time: 07:43 Bed 2 Private MD: Diagnosis: GI Bleed/ Gastrointestinal hemorrhage, unspecified;Pneumonia, unspecified organism;Anemia, unspecified Presentation: 10/11 08:05 Chief complaint: Patient states: Weakness, repeated falls, hx of esophageal cancer jl7 treating with chemo. Coronavirus screen: At this time, the client does not indicate any symptoms associated with coronavirus-19. Ebola Screen: No symptoms or risks identified at this time. Initial Sepsis Screen: Does the patient meet any 2 criteria? No. Patient's initial sepsis screen is negative. Does the patient have a suspected source of infection? No. Patient's initial sepsis screen is negative. Risk Assessment: Do you want to hurt yourself or someone else? Patient reports no desire to harm self or others. Onset of symptoms is unknown. 08:05 Method Of Arrival: Wheelchair jl 08:05 Acuity: JUAN C 2 jl7 Historical: - Allergies: 08:07 No Known Allergies; jl7 - Home Meds: 08:07 folfox chemo [Active]; jl7 - PMHx: 08:07 diabetes mellitus; esophageal cancer; Hypertension; jl7 - PSHx: 08:07 hernia repair; jl7 - Immunization history:: Adult Immunizations unknown. - Social history:: Smoking status: Patient denies any tobacco usage or history of. - Family history:: not pertinent. - Hospitalizations: : No recent hospitalization is reported. Screenin:36 [facility] ED Fall Risk Assessment (Adult) History of falling in the last 3 months, tm6 including since admission No falls in past 3 months (0 pts). Abuse screen: Denies threats or abuse. Denies injuries from another. Nutritional screening: No deficits noted. Tuberculosis screening: No symptoms or risk factors identified. Assessment: 08:36 General: Appears in no apparent distress. Behavior is calm, cooperative, appropriate tm6 for age. Pain: Denies pain. Neuro: Level of Consciousness is awake, alert, obeys commands, Oriented to person, place, time, situation. Cardiovascular: Capillary refill < 3 seconds Patient's skin is warm and dry. Respiratory: Airway is patent Respiratory effort is even, unlabored, Respiratory pattern is regular, symmetrical. GI: Abdomen is flat. : No signs and/or symptoms were reported regarding the genitourinary system. EENT: No signs and/or symptoms were reported regarding the EENT system. Derm: No signs and/or symptoms reported regarding the dermatologic system. Musculoskeletal: No signs and/or symptoms reported regarding the musculoskeletal system. 10:30 Reassessment: Blood transfusion started at 1030. ld1 11:00 Reassessment: First unit PRBCs continues, see transfusion flowsheet for hb vitals/observations. 12:45 Reassessment: Notified ERP of VS trending down. See MAR for orders. ld1 12:45 Reassessment: 2nd Unit PRBC initiated at this time. ld1 Vital Signs: 08:05 BP 89 / 55; Pulse 95; Resp 20; Temp 98.2; Pulse Ox 95% ; Weight 72.57 kg; Height 5 ft. jl7 10 in. ; Pain 0/10; 08:35 BP 95 / 63; Pulse 90; Resp 18; Pulse Ox 95% on R/A; tm6 09:51 BP 99 / 54; Pulse 88; Resp 18; Pulse Ox 96% on R/A; ld1 10:30 BP 95 / 63; Pulse 83; Resp 16; Temp 97.5(TE); Pulse Ox 96% on R/A; ld1 12:42 BP 96 / 63; Pulse 82; Resp 15; Pulse Ox 97% on R/A; ld1 12:50 BP 85 / 73; Pulse 80; Resp 22; Pulse Ox 99% on R/A; ld1 12:52 BP 81 / 55; Pulse 84; Resp 26; Pulse Ox 96% on R/A; ld1 13:15 BP 91 / 54; Pulse 77; Resp 20; Pulse Ox 98% ; ld1 13:20 BP 91 / 59; Pulse 76; Resp 20; Pulse Ox 100% on R/A; ld1 08:05 Body Mass Index 22.96 (72.57 kg, 177.8 cm) jl7 08:05 Pain Scale: Adult jl7 ED Course: 07:45 Patient arrived in ED. im 07:47 Perry Velasco MD is Attending Physician. rn 08:07 Triage completed. jl7 08:07 Arm band placed on right wrist. jl7 08:14 Janny, Tawney, RN is Primary Nurse. tm6 08:17 CT Head Brain wo Cont In Process Unspecified. EDMS 08:24 Chest Single View XRAY In Process Unspecified. EDMS 08:36 Patient has correct armband on for positive identification. Placed in gown. Bed in low tm6 position. Call light in reach. Side rails up X2. Provided Education on: need for IV. Client placed on continuous cardiac and pulse oximetry monitoring. NIBP monitoring applied. air sampling and monitoring on. Door closed. Noise minimized. Lights dimmed. Warm blanket given. 08:36 No provider procedures requiring assistance completed. tm6 08:40 Inserted saline lock: 20 gauge in right antecubital area, using aseptic technique. hb Blood collected. 09:16 Pako Rutledge MD is Hospitalizing Provider. rn 09:51 Inserted saline lock: 22 gauge in left forearm, using aseptic technique. ld1 10:17 Patient admitted, IV remains in place. hb 10:50 initiated a transfer with Alize Armas Rn from the [facility] at the request of Dr. Roberts. 11:[address] Dr. Holt with Dr. Velasco for patient transfer consultation. 11:47 administrative approval given by Alize Armas Rn to [facility]/ patient has been accepted to [facility] room 1519/ Dr. Teresa Holt has accepted the patient in transfer/ report to be called to [phone]. Administered Medications: 08:41 Drug: NS 0.9% IV 1000 ml IV at 1000 ml once Route: IV; Rate: 1000 ml; Site: right hb antecubital; 09:12 Drug: Rocephin IV 1 grams IV at calculated rate once; Given slow IV push per pharmacy tm6 instructions Route: IV; Rate: calculated rate; Site: right antecubital; 09:12 Drug: Zithromax IVPB 500 mg IVPB once over 1 hrs; mix in 250 mL NS Route: IVPB; Infused tm6 Over: 1 hrs; Site: right antecubital; 11:50 Drug: NS 0.9% IV 500 ml IV at bolus once Route: IV; Rate: bolus; Site: right tm6 antecubital; 13:00 Drug: NS 0.9% IV (30 ml/kg) 30 ml/kg IV at bolus once; Sepsis Protocol, subtract ld1 already given fluids Route: IV; Rate: bolus; Site: right antecubital; Medication: 08:36 VIS not applicable for this client. tm6 Outcome: 09:17 Decision to Hospitalize by Provider. rn 10:17 Admitted to ER Hold. Please see [facility] for further documentation. hb 10:17 Condition: stable 10:17 Instructed on the need for admit, Demonstrated understanding of instructions, 11:42 ER care complete, transfer ordered by MD. rn 13:34 Patient left the ED. tm6 Signatures: Dispatcher [employer] EDMS Perry Velasco MD MD rn Baxter, Heather RN RN Divya Walter RN RN Carrie Byrnes Lauren RN RN ld1 Dominga Hassan Tawney RN RN tm6 Corrections: (The following items were deleted from the chart) 14:56 12:58 BP 91 / 59; ld1 ld1 14:59 13:00 BP 91 / 59; Pulse 82bpm; Resp 19bpm; Pulse Ox 97% RA; ld1 ld1
[2023-10-11 09:27] LABS: SARS-CoV-2 Antigen Rapid Res Negative (Negative)
--- NOTE | 2023-10-11 09:46 | P.HP ---
Certification for Inpatient Patient admitted to: Inpatient With expected LOS: <2 Midnights Patient will require the following post-hospital care: None Practitioner: I am a practitioner with admitting privileges, knowledge of patient current condition, hospital course, and medical plan of care. Services: Services provided to patient in accordance with Admission requirements found in Title 42 Section 412.3 of the Code of Federal Regulations Patient History Date of Service: 10/11/23 Reason for admission: Severe anemia History of Present Illness: 73 year old male with past medical history of anemia, gastritis, history blood transfusions, mellitus,stage 4 esophageal cancer; Hypertension presents to the emergency room with reported fall, generalized weakness. He reports he lives at home, his daughter is staying with him. He reported 3 fall this week, reported hitting his head on tile with unknown loss of consciousness. He uses cane and walker prn. He reports seeing Dr Thomas for stage IV esophogeal cancer. He is Fulfox for chemotherapy. He reports nausea, vomiting. vomiting worse yesterday with PO intake. He reported vomited x7 yesterday, He called EMS. He denies hematemesis. He denies fever,chills, chest pain, diarrhea, rectal bleeding. Plan to admit for Pneumonia, unspecified organism, severe Anemia, Dehydration, stage IV esphogeal cancer on chemotherapy Lab evaluation HH 5.9, 18.3, WBC 2.06 leukocytopenia, RADHA BUN 33, CR 1.38, BG 139, Covid negative, CXR Moderate bilateral pulmonary opacities are present, slightly greater on the left likely representing pneumonia. The heart is upper limit normal in size. No displaced fractures.Right-sided venous catheter its tip in the SVC. No displaced rib fractures. CT head IMPRESSION: No acute intracranial abnormality. Allergies No Known Allergies Allergy (Verified 08/16/23 08:11) Home Medications: Olmesartan/Hydrochlorothiazide [Olmesartan-Hctz 20-12.5 mg Tab] PRN 02/05/23 Omeprazole [Prilosec] 40 mg PO DAILY 02/05/23 Ondansetron [Zofran] 4 mg PO Q6H PRN 02/05/23 - Past Medical/Surgical History Diabetic: Yes -: HTN -: Gastritis -: Anemia with blood transfusion -: Stage IV espogeal cancer sees Dr Thomas -: Diabetes Psychosocial/ Personal History: Lives alone, daughter has been staying with him as caregiver - Social History Smoking Status: Former smoker Alcohol use: No CD- Drugs: No Caffeine use: No Place of Residence: Home Review of Systems 10-point ROS is otherwise unremarkable Physical Examination - Physical Exam General: Alert, In no apparent distress, Oriented x3, Other (pale) HEENT: PERRLA, Mucous membr. moist/pink, Other (laceration left eyebrow, covered with bandaid, old dried blood drainage, no hematoma) Neck: Supple, 2+ carotid pulse no bruit, JVD not distended Respiratory: Clear to auscultation bilaterally, Normal air movement Cardiovascular: No edema, Normal pulses, Regular rate/rhythm Capillary refill: <2 Seconds Gastrointestinal: Normal bowel sounds, Soft and benign Musculoskeletal: No clubbing, No swelling Integumentary: Other (laceration left eyebrow, covered with bandaid, no hematoma) Neurological: Normal strength at 5/5 x4 extr, Other (moderate generalized weakess) - Studies Laboratory Data (last 24 hrs) 10/11/23 10/11/23 10/11/23 08:41 08:41 08:41 WBC 3.10 L Hgb 5.9 L* Hct 18.3 L Plt Count 72 L PT 15.2 H INR 1.38 APTT 26.6 Sodium 139 Potassium 3.6 BUN 33 H Creatinine 0.99 Glucose 139 H Magnesium 2.1 Total Bilirubin 0.5 AST 24 ALT 17 Alkaline Phosphatase 160 H Microbiology Data (last 24 hrs): 10/11/23 08:41 Nasopharnyx Influenza Type A Antigen Screen - Final 10/11/23 08:41 Nasopharnyx Influenza Type B Antigen Screen - Final Assessment and Plan - Plan Assessment/Plan Severe anemia-acute History gastritis with blood transfusions, stage 4 esophageal cancer on chemotherapy leukocytopenia-acute sees Dr Zaidi and Dr Thomas (GI, ONC consulted) type cross, transfuse HH <7 trend HH, Q4H HH, trend wbc Lab evaluation HH 5.9, 18.3, WBC 2.06 leukocytopenia, Pneumonia-acute IVF, IV Abx, Covid negative, CXR Moderate bilateral pulmonary opacities are present, slightly greater on the left likely representing pneumonia. The heart is upper limit normal in size. No displaced fractures.Right-sided venous catheter its tip in the SVC. No displaced rib fractures. Dehydration-acute RADHA like secondary prerenal NV-acute RADHA BUN 33, CR 1.38, IVF Weakness-acute Falls PT eval, fall precaution CT head IMPRESSION: No acute intracranial abnormality. diabetes mellitus type 2-chronic Hypertension resume approp home medications ssi, accuchecks BG 139, Diet NPO (per GI) Full code DVT SCD Discharge Plan: Home Plan to discharge in: 48 Hours - Advance Directives Does patient have a Living Will: No Does patient have a Durable POA for Healthcare: No - Code Status/Comfort Care Code Status: Full Code Physician Review: Patient Assessed, Agree with Above Assessment and Plan Critical Care: No Time Spent Managing Pts Care (In Minutes): 50
[2023-10-11 10:07] LABS: Anisocytosis SLIGHT; Blood Morphology Comment NOTED (NOT SEEN); Platelet Estimate DECR
[2023-10-11] MEDS ORDERED: ACETAMINOPHEN 500 MG TAB PO PRN (10:17)
[2023-10-11] MEDS ORDERED: ONDANSETRON 4 MG/2 ML VIAL IV PRN (10:17)
[2023-10-11] MEDS ORDERED: NA CHLORIDE 0.9% 1,000 ML IV SCH (10:17)
[2023-10-11] MEDS ORDERED: LOPERAMIDE HCL 2 MG CAPSULE PO STA (10:25)
[2023-10-11 10:29] VITALS: BMI 23.9
[2023-10-11] MEDS ORDERED: LOPERAMIDE HCL 2 MG CAPSULE ONE (12:06)
[2023-10-11 13:46] VITALS: TEMP 97.5
[2023-10-11 13:49] VITALS: BP 81/55; O2SAT 96
[2023-10-12] MEDS ORDERED: AZITHROMYCIN IV 500 MG in NA CHLORIDE 0.9% 250 ML IVPB SCH (09:00)
[2023-10-12] MEDS ORDERED: CEFEPIME 1 GM in NA CHLORIDE 0.9% 100 ML IV SCH (09:00)
--- NOTE | 2023-10-12 14:10 | EKG ---
Test Date: 2023-10-11 Test Time: 08:31:37 Housekeeping Lead: LAKSHMI MEASUREMENT RESULTS: Intervals: Rate: 89 NM: 144 QRSD: 80 QT: 378 QTc: 459 [place]: P: 38 NM: 144 QRS: 50 T: 31 INTERPRETIVE STATEMENTS: Normal sinus rhythm Cannot rule out Anterior infarct, age undetermined Abnormal ECG Compared to ECG 10/11/2023 08:28:47 No significant changes Electronically Signed On 10-12-23 14:07:21 DIESEL TECHNICIAN MECHANIC by Joss Mata
--- NOTE | 2023-10-12 14:10 | EKG ---
Test Date: 2023-10-11 Test Time: 08:28:47 Sql Programmer Analyst: OFFU MEASUREMENT RESULTS: Intervals: Rate: 89 CA: 154 QRSD: 80 QT: 396 QTc: 481 [place]: P: 35 CA: 154 QRS: 51 T: 34 INTERPRETIVE STATEMENTS: Poor data quality, interpretation may be adversely affected Normal sinus rhythm Cannot rule out Anterior infarct, age undetermined Abnormal ECG Compared to ECG 08/27/2023 09:59:18 No significant changes Electronically Signed On 10-12-23 14:07:23 LICENSED PROSTHETIST by Joss Mtaa
== END 2023-10-11 13:34 | disposition short-term general hospital (02) | DRG 194 ==
LOC: ER 07:43 → ERHOLD 09:37
PROVIDERS: ADMIT Internal Medicine Nephrology; ATTEND Internal Medicine Nephrology
PROC: 30233N1 Transfusion of Nonautologous Red Blood Cells into Peripheral Vein, Percutaneous Approach (ICD-10-PCS; principal; 2023-10-11)
DX: J18.9 Pneumonia, unspecified organism (principal); C15.9 Malignant neoplasm of esophagus, unspecified; N17.9 Acute kidney failure, unspecified; E11.9 Type 2 diabetes mellitus without complications; I10 Essential (primary) hypertension; I95.9 Hypotension, unspecified; E86.0 Dehydration; D64.9 Anemia, unspecified; R29.6 Repeated falls; Z91.81 History of falling; Z11.52 Encounter for screening for COVID-19; Z79.899 Other long term (current) drug therapy; Z87.891 Personal history of nicotine dependence; W19.XXXA Unspecified fall, initial encounter; Y93.9 Activity, unspecified; Y99.9 Unspecified external cause status; Y92.019 Unspecified place in single-family (private) house as the place of occurrence of the external cause
CPT/HCPCS: 36415; 70450; 71045; 80048; 80076; 83605; 83735; 84484; 85025; 85610; 85730; 86850; 86900; 86901; 86920; 87040; 87804; 87811; 93005; 96374; 96375; 99285; J0696; J7030; J7050; J7799; P9016